=== PATIENT | male | born 1960 ===

== ENCOUNTER 2024-11-06 08:24 | Outpatient (AMB) | payer OTHER, SELFPAY ==
--- NOTE | 2024-11-05 20:29 | A.OFFPC_ITS ---
Intake Visit Reasons: Diabetes [facility] Medical History (Updated 11/05/24 @ 20:33 by Primo Blanchard MD) Obesity, Class I, BMI 30-34.9 Osteoarthritis of right knee Insulin dependent type 2 diabetes mellitus Hypertension GERD (gastroesophageal reflux disease) Surgical History (Updated 11/05/24 @ 17:18 by TINO Shannon) History of arthroplasty of right knee Review of Systems Const Details: 10-point ROS reviewed and negative except as noted in HPI. Physical exam (Primary Care) Const Other: * Gen: NAD, A&O x3 * HEENT: NC/AT, PERRLA, EOMI, OP clear, MMM * Neck: Supple, no LAD/JVD/bruit * COR: RRR, S1 S2, no m/r/g * Lungs: CTAB, BS equal bilat, no r/r/w * Abd: NT/ND, +BS, no HSM, no mass/rebound/guarding * Ext: No CCE, 2+ pulses * Neuro: CN II?XII grossly intact, motor/sensory intact, reflexes 2+, gait normal * Skin: WDI, no rash Coding Diagnoses Hypertension I10 Insulin dependent type 2 diabetes mellitus E11.9; Z79.4 Gastroesophageal reflux disease without esophagitis K21.9 Esophagitis presence: without esophagitis Assessment & Plan Assessment & Plan (1) Hypertension: Code(s): I10 - Essential (primary) hypertension Category: Medical (2) Insulin dependent type 2 diabetes mellitus: Code(s): E11.9 - Type 2 diabetes mellitus without complications; Z79.4 - alf (current) use of insulin Category: Medical (3) GERD (gastroesophageal reflux disease): Code(s): K21.9 - Gastro-esophageal reflux disease without esophagitis Category: Medical Qualifiers: Esophagitis presence: without esophagitis Qualified Code(s): K21.9 - Gastro-esophageal reflux disease without esophagitis
--- NOTE | 2024-11-05 20:29 | MHC.PC.OV ---
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 Physical exam (Primary Care) Const Other: Gen: NAD, A&O x3 HEENT: NC/AT, PERRLA, EOMI, OP clear, MMM Neck: Supple, no LAD/JVD/bruit COR: RRR, S1 S2, no m/r/g Lungs: CTAB, BS equal bilat, no r/r/w Abd: NT/ND, +BS, no HSM, no mass/rebound/guarding Ext: No CCE, 2+ pulses Neuro: CN II?XII grossly intact, motor/sensory intact, reflexes 2+, gait normal Skin: WDI, no rash Coding Diagnoses Hypertension I10 Insulin dependent type 2 diabetes mellitus E11.9; Z79.4 Gastroesophageal reflux disease without esophagitis K21.9 Esophagitis presence: without esophagitis Assessment & Plan Assessment & Plan (1) Hypertension: Code(s): I10 - Essential (primary) hypertension Category: Medical (2) Insulin dependent type 2 diabetes mellitus: Code(s): E11.9 - Type 2 diabetes mellitus without complications; Z79.4 - USP (current) use of insulin Category: Medical (3) GERD (gastroesophageal reflux disease): Code(s): K21.9 - Gastro-esophageal reflux disease without esophagitis Category: Medical Qualifiers: Esophagitis presence: without esophagitis Qualified Code(s): K21.9 - Gastro-esophageal reflux disease without esophagitis
--- NOTE | 2024-11-06 07:50 | A.OFFPC_ITS ---
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 He has a past medical history of diabetes type 2 hypertension GERD osteoarthritis of the right knee osteoarthritis of bilateral shoulders bilateral carpal tunnel lower back pain with sciatica He currently takes 54 units of insulin at night takes 4 units pre meals ,takes 5 mg of lisinopril pantoprazole for GERD. He also mentions he was receiving physical therapy for lower back pain but had to stop due to pain He mentions that he received an x-ray not too long ago for lower back pain which showed a pinched nerve He was receiving steroid injections for his carpal tunnel and steroid injections for bilateral shoulder arthritis He has not seen Ophthalmology or podiatry Blood pressure is elevated at this time which maybe this which may be secondary to his pain which she puts 7/10 when he moves He has no other complaints at this time [facility] Medical History (Updated 11/06/24 @ 09:19 by Primo Blanchard MD) Insulin dependent type 2 diabetes mellitus Hypertension GERD (gastroesophageal reflux disease) Obesity, Class I, BMI 30-34.9 Osteoarthritis of right knee Surgical History (Updated 11/05/24 @ 17:18 by TINO Shannon) History of arthroplasty of right knee Family History (Updated 11/06/24 @ 08:39 by Samira Ramires MA) Father Heart attack Mother Heart attack Social History Housing: Apartment Alcohol intake: current Alcohol intake frequency: does not drink Patient Tobacco Use Status: Never used Tobacco service: No Current occupational status: disabled Cognitive needs: Yes (cane and walker) Hearing needs: No Vision needs: Yes (reading glasses) Questionnaire PHQ-9 Over the last 2 weeks, how often have you been bothered by any of the following problems? 1. Little interest or pleasure in doing things: not at all 2. Feeling down, depressed, or hopeless: not at all 3. Trouble falling or staying asleep, or sleeping too much: not at all 4. Feeling tired or having little energy: not at all 5. Poor appetite or overeating: not at all 6. Feeling bad about yourself - or that you are a failure or have let yourself or your family down: not at all 7. Trouble concentrating on things, such as reading the newspaper or watching television: not at all 8. Moving or speaking so slowly that other people could have noticed. Or the opposite - being so fidgety or restless that you have been moving around a lot more than usual: not at all 9. Thoughts that you would be better off or of hurting yourself in some way: not at all Total score: 0 Depression Screening Interpretation: Negative Depression Screening Done: Yes Source: Developed by Drs. Anand Negron, Heidi Capps, Ugo Rankin and colleagues, with an educational rogelio from [employer]. Thrive Questionnaire Date Thrive assessed: 11/06/24 I am a: Patient What is your living situation today?: I have a steady place to live Within the past 12 months, did the food you bought not last and you didn't have the money to get more?: Never true Within the past 12 months, did you worry whether your food would run out before you got money to buy more?: Never true Do you have trouble paying for medicines?: No Do you have trouble getting transportation to medical appointments?: No Do you have trouble paying your heating and electricity bill?: No Do you have trouble taking care of your child, family member or friend?: No Do you have trouble with day-to-day activities such as bathing, preparing meals, shopping, managing finances, etc.?: No Are you currently unemployed and looking for a job?: No Are you interested in more education?: No Please select the resources that you would like help with: None Currently or been in a relationship where the following occur: No concerns reported THRIVE Score: 0 AUDIT C Alcohol Use Questionnaire (AUDIT-C) 1. How often do you have a drink containing alcohol?: Never 3. How often do you have six or more drinks on one occasion?: Never Total Score: 0 Score Reviewed/Action Taken: Yes MOHAMUD-7 AMB Questionnaire MOHAMUD-7 Date MOHAMUD - 7 assessed: 11/06/24 Feeling nervous, anxious, or on edge: 0 = Not at all Not being able to stop or control worryin = Not at all Worrying too much about different things: 0 = Not at all Trouble relaxin = Not at all Being so restless that it is hard to sit still: 0 = Not at all Becoming easily annoyed or irritable: 0 = Not at all Feeling afraid as if something awful might happen: 0 = Not at all Total MOHAMUD-7 score (0-4 normal; 5-9 mild; 10-14 moderate; 15-21 severe): 0 Source: Developed by Drs. Anand Negron, Heidi Capps, Ugo Rankin and colleagues, with an educational rogelio from [employer]. Review of Systems Const Details: 10-point ROS reviewed and negative except as noted in HPI. Physical exam (Primary Care) 32 BMI Assessment/Plan discussion: High Depression Screening Interpretation: Negative Currently or been in a relationship where the following occur: No concerns reported Const Other: * Gen: NAD, A&O x3 * HEENT: NC/AT, PERRLA, EOMI, OP clear, MMM * Neck: Supple, no LAD/JVD/bruit * COR: RRR, S1 S2, no m/r/g * Lungs: CTAB, BS equal bilat, no r/r/w * Abd: NT/ND, +BS, no HSM, no mass/rebound/guarding * Ext: No CCE, 2+ pulses * Neuro: CN II?XII grossly intact, motor/sensory intact, reflexes 2+, gait normal * Skin: WDI, no rash Coding Level of Care Code New Pt Level 3 (40645) Diagnoses Insulin dependent type 2 diabetes mellitus E11.9; Z79.4 Hypertension I10 Gastroesophageal reflux disease without esophagitis K21.9 Esophagitis presence: without esophagitis Routine lab draw Z01.89 Regular check-up Z00.00 Exercise counseling Z71.82 Other specified counseling Z71.89 Back pain associated with peripheral numbness M54.9; R20.0 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 Carpal tunnel syndrome G56.00 Arthritis of shoulder M19.019 Pain R52 Elevated blood pressure reading R03.0 Assessment & Plan Assessment & Plan (1) Insulin dependent type 2 diabetes mellitus: Code(s): E11.9 - Type 2 diabetes mellitus without complications; 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 Category: Medical (2) Hypertension: Code(s): I10 - Essential (primary) hypertension Category: Medical (3) GERD (gastroesophageal reflux disease): Code(s): K21.9 - Gastro-esophageal reflux disease without esophagitis Category: Medical Qualifiers: Esophagitis presence: without esophagitis Qualified Code(s): K21.9 - Gastro-esophageal reflux disease without esophagitis (4) Routine lab draw: Code(s): Z01.89 - Encounter for other specified special examinations (5) Regular check-up: Code(s): Z00.00 - Encounter for general adult medical examination without abnormal f indings (6) Exercise counseling: Code(s): Z71.82 - Exercise counseling (7) Other specified counseling: Code(s): Z71.89 - Other specified counseling (8) Back pain associated with peripheral numbness: Code(s): M54.9 - Dorsalgia, unspecified; R20.0 - Anesthesia of skin Category: Medical (9) 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: Code(s): M53.87 - Other specified dorsopathies, lumbosacral region Category: Medical (10) Carpal tunnel syndrome: Code(s): G56.00 - Carpal tunnel syndrome, unspecified upper limb Category: Medical (11) Arthritis of shoulder: Code(s): M19.019 - Primary osteoarthritis, unspecified shoulder Category: Medical (12) Pain: Code(s): R52 - Pain, unspecified Category: Medical (13) Elevated blood pressure reading: Code(s): R03.0 - Elevated blood-pressure reading, without diagnosis of hypertension Plan continue current medication for chronic condition currently does not need refills referrals for pain mgmt podiatry ophthalmology neurosurgery 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 A1c follow-up. Medication counseling (5 min): * Reviewed purpose and indication of prescribed medications. * Discussed dosing, timing, and administration instructions. * Reviewed common side effects, potential adverse reactions, and when to seek urgent care. * Addressed drug?drug and drug?food interactions as relevant. * Emphasized importance of adherence and not stopping medications without provider input. * Confirmed patient understanding using teach-back method. * Provided written instructions/AVS for reinforcement. Fall Prevention Counseling (5 min) Counseling provided on fall risk and prevention. Reviewed importance of: * Exercise: balance/strength activities (e.g., walking, Martin Chi, PT if needed). * Home safety: remove loose rugs/clutter, improve lighting, install grab bars/railings, nonslip footwear. * Health maintenance: annual eye/hearing checks, medication review, adequate vitamin D/calcium intake. * Encouraged gradual position changes to reduce dizziness. Patient verbalized understanding.
[2024-11-06 08:40] VITALS: BP 146/102; PULSE 89; RESP 16; TEMP 36.4; O2SAT 99; BMI 32.0
== END 2024-11-06 09:10 | disposition home or self-care (01) ==
LOC: HO.HMCFMS 08:25
PROVIDERS: PCP Student in an Organized Health Care Education/Training Program; Visit Provider Student in an Organized Health Care Education/Training Program
DX: Z00.00 Encounter for general adult medical examination without abnormal findings (principal); E11.9 Type 2 diabetes mellitus without complications; Z79.4 Long term (current) use of insulin; I10 Essential (primary) hypertension; K21.9 Gastro-esophageal reflux disease without esophagitis; Z71.82 Exercise counseling; Z71.89 Other specified counseling; M54.9 Dorsalgia, unspecified; R20.0 Anesthesia of skin; M53.87 Other specified dorsopathies, lumbosacral region; G56.00 Carpal tunnel syndrome, unspecified upper limb; M19.019 Primary osteoarthritis, unspecified shoulder; R52 Pain, unspecified; R03.0 Elevated blood-pressure reading, without diagnosis of hypertension

== ENCOUNTER 2024-11-20 08:55 | Outpatient (REF) | payer MEDICARE, SELFPAY ==
[2024-11-20 13:54] LABS: Total Hemoglobin (HGBA1C) 3958.5323 umol/L
[2024-11-20 14:08] LABS: Alanine Aminotransferase 37 U/L (0-40); Albumin Level 4.5 g/dL (3.5-5.0); Alkaline Phosphatase 100 U/L (39-117); Anion Gap 10 (12-20); Aspartate Amino Transferase 29 U/L (5-37); Blood Urea Nitrogen 18 mg/dL (9-16); Calcium 9.7 mg/dL (8.4-10.2); Carbon Dioxide 30 mmol/L (22-29); Chloride 106 mmol/L (96-108); Cholesterol 157 mg/dL (<200); Estimated Glomerular Filt Rate > 60; HDL Cholesterol 62 mg/dL (>40); Potassium 4.3 mmol/L (3.3-5.1); Sodium 142 mmol/L (135-145); Total Protein 7.3 g/dL (6.5-8.0); Triglycerides 71 mg/dL (<150)
[2024-11-20 14:28] LABS: Microalbum/Creatinine Ratio Ur 13.4 ug/mg cr (<30)
[2024-11-21 09:00] LABS: HIV Num 1 0.07 S/CO (0.00-0.99); ~HepC Num1 0.05 S/CO (0.00-0.79); ~Hepatitis C Antibody Nonreactive (Nonreactive)
== END 2024-11-20 08:56 | disposition home or self-care (01) ==
LOC: HO.HKASLDS 08:55
PROVIDERS: PCP Student in an Organized Health Care Education/Training Program; Visit Provider Student in an Organized Health Care Education/Training Program
DX: Z11.4 Encounter for screening for human immunodeficiency virus [HIV] (principal); M54.9 Dorsalgia, unspecified; R20.0 Anesthesia of skin; E66.811 Obesity, class 1; E11.9 Type 2 diabetes mellitus without complications; I10 Essential (primary) hypertension; M25.561 Pain in right knee; Z79.4 Long term (current) use of insulin; Z96.651 Presence of right artificial knee joint
CPT/HCPCS: 36415; 80053; 80061; 82043; 82570; 83036; 86803; 87389; 99212

== ENCOUNTER 2024-11-20 08:55 | Outpatient (AMB) | payer MEDICARE, SELFPAY ==
--- NOTE | 2024-11-20 09:19 | A.OFFPC_ITS ---
Vital Signs 11/20/24 09:20 Height 5 ft 6.54 in Weight 203 lb BMI 32.2 BP 150/90 H Blood Pressure Location Rt brachial Position Sitting Respiration 16 Pulse 89 Pulse Source Pulse Oximeter Temp 97.5 F Temp Source Oral Pulse Oximetry (%) 97 Oxygen Delivery Method Room Air Intake Visit Reasons: 2 week follow up Reflexologist Required: No Accompanied by: Self / Same As Patient Allergies No Known Allergies Allergy (Verified 11/20/24 09:19) Tobacco use date assessed: 11/06/24 Fall risk assessment: 1 Fall in past year Last assessed Fall Risk: 11/06/24 Dental Screening Dental Screen Date: 11/06/24 Did you have a dental visit in the last 12 months?: Yes Did you have a dental problem in the last 6 months where you did not have access to dental care?: No Was dental information given to patient?: Patient has dentist HPI HPI Comments History of Present Illness Details History of Present Illness The patient is a 64-year-old male presenting with chronic back pain and diabetes management. Chronic back pain: - The patient reports persistent back pa in since a previous surgery, which has not resolved despite various interventions. - He experiences difficulty straightenin g up upon waking and relies on medication that affects his blood sugar levels. - The patient has been referred for an M RI and to see a neurosurgeon and pain specialist for further evaluation and management. Diabetes mellitus: - The patient has diabetes mellitus, whi ch is affected by his current pain medication regimen. - He has been advised to manage his diab etes while addressing his chronic pain issues. Health Maintenance Review of Systems - Musculoskeletal: Reports chronic back pain and difficulty straightening up upon waking. - Endocrine: Reports issues with blood s ugar management due to pain medication. 10-point ROS reviewed and negative excep t as noted in HPI Past Medical History - Diabetes mellitus - Right knee total knee replacement Physical Exam General: Well-appearing, in no acute distress. Vital signs: Within normal limits. HEENT: Normocephalic, atraumatic. PERRLA, EOMI. Conjunctiva clear, sclera anicteric. Oropharynx clear, mucous membranes moist. TMs intact bilaterally. Neck: Supple, no lymphadenopathy, no thyromegaly, no JVD or carotid bruits. Cardiovascular: RRR, normal S1/S2, no murmurs, rubs, or gallops. Peripheral pulses 2+ and symmetric. No edema. Respiratory: Lungs clear to auscultation bilaterally, no wheezes, rales, or rhonchi. Normal effort. Abdomen: Soft, non-tender, non-distended. Normoactive bowel sounds. No hepatosplenomegaly, no masses. MSK: Full range of motion, no joint swelling or deformity. Normal gait. Skin: Warm, dry, intact. No rashes, lesions, or pallor. Neuro: Alert and oriented x3. Cranial nerves II-XII intact. Strength 5/5 throughout. Sensation intact. Reflexes 2+ symmetric. Normal coordination and gait. Psych: Appropriate mood and affect. Normal judgment and insight. Discussion Notes I discussed with the patient the need for an MRI to further evaluate his chronic back pain and the importance of consulting with a neurosurgeon and pain specialist. We also talked about the impact of his pain medication on his diabetes management and the need to address both conditions simultaneously. Plan 1. Dorsalgia, unspecified M54.9 - The patient will undergo an MRI to ass ess the cause of persistent back pain and will consult with a neurosurgeon and pain specialist for further management. - Pain management strategies, including possible steroid injections, will be considered. 2. Type 2 diabetes mellitus without comp lications E11.9 HCC 19 - The patient is advised to monitor bloo d sugar levels closely, especially in relation to his pain medication regimen. - Adjustments to his diabetes management plan may be necessary based on further evaluation. Patient Instructions - Schedule and complete the MRI as soon as possible. - Follow up with the neurosurgeon and pa in specialist for further evaluation. - Monitor blood sugar levels regularly a nd report any significant changes. [facility] Medical History Insulin dependent type 2 diabetes mellitus Hypertension GERD (gastroesophageal reflux disease) Obesity, Class I, BMI 30-34.9 Osteoarthritis of right knee Surgical History History of arthroplasty of right knee Family History Father Heart attack Mother Heart attack Social History Housing: Apartment Alcohol intake: current Alcohol intake frequency: does not drink Patient Tobacco Use Status: Never used Tobacco service: No Current occupational status: disabled Cognitive needs: Yes (cane and walker) Hearing needs: No Vision needs: Yes (reading glasses) Questionnaire PHQ-9 Over the last 2 weeks, how often have you been bothered by any of the following problems? 1. Little interest or pleasure in doing things: not at all 2. Feeling down, depressed, or hopeless: not at all 3. Trouble falling or staying asleep, or sleeping too much: nearly every day 4. Feeling tired or having little energy: nearly every day 5. Poor appetite or overeating: not at all 6. Feeling bad about yourself - or that you are a failure or have let yourself or your family down: not at all 7. Trouble concentrating on things, such as reading the newspaper or watching television: not at all 8. Moving or speaking so slowly that other people could have noticed. Or the opposite - being so fidgety or restless that you have been moving around a lot more than usual: not at all 9. Thoughts that you would be better off or of hurting yourself in some way: not at all Total score: 6 Source: Developed by Drs. Anand Negron, Heidi Capps, Ugo Rankin and colleagues, with an educational rogelio from [employer]. Thrive Questionnaire Date Thrive assessed: 11/06/24 I am a: Patient What is your living situation today?: I have a steady place to live Within the past 12 months, did the food you bought not last and you didn't have the money to get more?: Sometimes True Within the past 12 months, did you worry whether your food would run out before you got money to buy more?: Sometimes True Do you have trouble paying for medicines?: No Do you have trouble getting transportation to medical appointments?: No Do you have trouble paying your heating and electricity bill?: No Do you have trouble taking care of your child, family member or friend?: No Are you currently unemployed and looking for a job?: No Are you interested in more education?: No Please select the resources that you would like help with: None Currently or been in a relationship where the following occur: I choose not to answer THRIVE Score: 2 AUDIT C Alcohol Use Questionnaire (AUDIT-C) 1. How often do you have a drink containing alcohol?: Never Total Score: 0 MOHAMUD-7 AMB Questionnaire MOHAMUD-7 Date MOHAMUD - 7 assessed: 11/06/24 Feeling nervous, anxious, or on edge: 0 = Not at all Not being able to stop or control worryin = Not at all Worrying too much about different things: 0 = Not at all Trouble relaxin = Several days Being so restless that it is hard to sit still: 1 = Several days Becoming easily annoyed or irritable: 1 = Several days Feeling afraid as if something awful might happen: 0 = Not at all Total MOHAMUD-7 score (0-4 normal; 5-9 mild; 10-14 moderate; 15-21 severe): 3 Source: Developed by Drs. Anand Negron, Heidi Capps, Ugo Rankin and colleagues, with an educational rogelio from [employer]. Physical exam (Primary Care) Vital Signs: Last Vital Signs Temp 97.5 F 11/20/24 09:20 Pulse 89 11/20/24 09:20 Resp 16 11/20/24 09:20 BP 150/90 H 11/20/24 09:20 Pulse Ox 97 11/20/24 09:20 Oxygen Delivery Method Room Air 11/20/24 09:20 BMI result Body Mass Index 32.2 Tobacco/Smoking Status: Tobacco use Status Tobacco use date assessed 11/06/24 11/20/24 09:23 Patient Tobacco Use Status Never used Tobacco 11/20/24 09:23 PHQ-9: PHQ-9 Score PHQ-9: Total score 6 11/20/24 09:23 Thrive Assessment: Date of Thrive Assessment Date Thrive assessed 11/06/24 11/20/24 09:23 Currently or been in a relationship where the following occur: I choose not to answer Coding Level of Care Code Est Pt Level 3 (49441) Diagnoses Back pain associated with peripheral numbness M54.9; R20.0 Obesity, Class I, BMI 30-34.9 E66.811 Insulin dependent type 2 diabetes mellitus E11.9; Z79.4 Hypertension I10 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 Pain R52 Encounter for other specified aftercare Z51.89 Right knee pain M25.561 History of total knee replacement Z96.659 Assessment & Plan Assessment & Plan (1) Back pain associated with peripheral numbness: Code(s): M54.9 - Dorsalgia, unspecified; R20.0 - Anesthesia of skin Category: Medical (2) Obesity, Class I, BMI 30-34.9: Code(s): E66.811 - Obesity, class 1 Category: Medical (3) Insulin dependent type 2 diabetes mellitus: Code(s): E11.9 - Type 2 diabetes mellitus without complications; Z79.4 - penitentiary (current) use of insulin Category: Medical (4) Hypertension: Code(s): I10 - Essential (primary) hypertension Category: Medical (5) 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: Code(s): M53.87 - Other specified dorsopathies, lumbosacral region Category: Medical (6) Pain: Code(s): R52 - Pain, unspecified Category: Medical (7) Encounter for other specified aftercare: Code(s): Z51.89 - Encounter for other specified aftercare (8) Right knee pain: Code(s): M25.561 - Pain in right knee (9) History of total knee replacement: Code(s): Z96.659 - Presence of unspecified artificial knee joint Plan
[2024-11-20 09:20] VITALS: BP 150/90; PULSE 89; RESP 16; TEMP 36.4; O2SAT 97; BMI 32.2
--- OUTSIDE RECORDS SUMMARY | 2024-11-20 10:17 | XMS_ITS | Clinical Summary ---
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 of diabetes, age, comorbid conditions, and other considerations. Currently, no consensus exists regarding use of hemoglobin A1c for diagnosis of diabetes for children. Blood Blood / Unknown 09/15/2024 4 :45 PM EDT 09/15/2024 4:45 PM EDT Narrative [facility] - 09/16/2024 7:02 AM EDT FASTING:NO Compa Duenas CLOTHESPIN MACHINE OPERATOR LAB - BLOOD DRAW Final Re sult Performing Organization Address City/[facility]/ZIP Co de Phone Number [facility] [address] [place] [id number], [employer] [address] [phone] * OTHER ORDERS SCANNED DOCUMENT (09/08/2024 3:00 AM EDT) 09/08/2024 3:00 AM EDT Compa Duenas CLOTHESPIN MACHINE OPERATOR SCAN OTHER ORDERS Final R esult * (ABNORMAL) COMPREHENSIVE METABOLIC PANEL (04/05/2024 9:58 AM EST) GLUCOSE 123(H) 65 - 99 mg/dL [employer] [facility] Comment: Fasting reference interval For someone without known diabetes, a glucose value between 100 and 125 mg/dL is consistent with prediabetes and should be confirmed with a follow-up test. UREA NITROGEN (BUN) 20 7 - 25 mg/dL [employer] [facility] CREATININE (blood) 0.95 0.70 - 1.35 mg/dL [employer] [facility] EGFR 89 > OR = 60 mL/min/1. 73m2 [employer] [facility] BUN/CREATININE RATIO SEE NOTE: [employer] [facility] Comment: Not Reported: BUN and Creatinine are within reference range. SODIUM 140 135 - 146 mmol/L [employer] [facility] POTASSIUM 4.9 3.5 - 5.3 mmol/L [employer] [facility] CHLORIDE 104 98 - 110 mmol/L [employer] [facility] CARBON DIOXIDE 28 20 - 32 mmol/L [employer] [facility] CALCIUM 10.0 8.6 - 10.3 mg/dL [employer] [facility] PROTEIN, TOTAL 6.7 6.1 - 8.1 g/dL [employer] [facility] ALBUMIN 4.6 3.6 - 5.1 g/dL [employer] [facility] GLOBULIN 2.1 1.9 - 3.7 g/dL (calc) [employer] [facility] ALBUMIN/GLOBULI N RATIO 2.2 1.0 - 2.5 (calc) [employer] [facility] BILIRUBIN, TOTAL 0.6 0.2 - 1.2 mg/dL [employer] [facility] ALKALINE PHOSPHATASE 97 35 - 144 U/L [employer] [facility] AST 17 10 - 35 U/L [employer] [facility] ALT 29 9 - 46 U/L [employer] [facility] Blood Blood / Unknown 04/05/2024 9 :58 AM EST 04/05/2024 9:58 AM EST Narrative [employer] [facility] - 04/06/2024 5:17 AM EST FASTING:YES us Zaki Hatch PharmD LAB - BLOOD DRAW Final Re sult [employer] [address] [address], [employer] [address] [address] * MICROALBUMIN/CREATININE RATIO, URINE, RANDOM (02/08/2024 10:32 AM EST) CREATININE, RANDOM URINE 122 20 - 320 mg/dL [employer] [facility] MICROALBUMIN 1.5 mg/dL [employer] [facility] Comment: Reference Range Not established MICROALBUMIN/CREA TININE RATIO, RANDOM URINE 12 <30 mg/g creat [employer] [facility] Comment: The ADA defines abnormalities in albumin excretion as follows: Albuminuria Category Result (mg/g creatinine) Normal to Mildly increased <30 Moderately increased 30-299 Severely increased > OR = 300 The ADA recommends that at least two of three specimens collected within a 3-6 month period be abnormal before considering a patient to be within a diagnostic category. Urine Urine specimen / Unknown 02/08/2024 10:32 AM EST 02/08/2024 10:32 AM EST [employer] Zaki Hatch PharmD LAB URINE AMBULATORY Lyndsay l Result [employer] [address] [address], [employer] [address] [address] * REFERRAL FOR DIABETIC RETINAL EXAM (11/23/2023 3:00 AM EDT) 11/23/2023 3:00 AM EDT [employer] Zaki Hatch PharmD REFERRAL Edited Re sult - Final * LIPID PANEL (11/22/2023 9:42 AM EDT) CHOLESTEROL, TOTAL 166 <200 mg/dL [employer] [facility] HDL CHOLESTEROL 70 > OR = 40 mg/dL [employer] [facility] TRIGLYCERIDES 109 <150 mg/dL [employer] [facility] LDL-CHOLESTEROL 77 99 mg/dL (calc) [employer] [facility] Comment: Reference range: <100 Desirable range <100 mg/dL for primary prevention; <70 mg/dL for patients with CHD or diabetic patients with > or = 2 CHD risk factors. LDL-C is now calculated using the Vin-Clark calculation, which is a validated novel method providing better accuracy than the Friedewald equation in the estimation of LDL-C. Vin SS et al. ROSE. 2013;310(19): 6230-0311 (http://education.tsumobi/faq/RUC027) CHOL/HDLC RATIO 2.4 <5.0 (calc) [facility] NON-HDL CHOLESTEROL 96 <130 mg/dL (calc) [facility] Comment: For patients with diabetes plus 1 major ASCVD risk factor, treating to a non-HDL-C goal of <100 mg/dL (LDL-C of <70 mg/dL) is considered a therapeutic option. Blood Blood / Unknown 11/22/2023 9 :42 AM EDT 11/22/2023 9:43 AM EDT Narrative [facility] - 11/23/2023 6:42 AM EDT FASTING:YES [employer] Zaki Hatch PharmD LAB - BLOOD DRAW Final Re connie [facility] [address] [place] [id number], [employer] [address] [place] [phone] * REFERRAL TO PODIATRY (01/22/2023 3:00 AM EST) 01/22/2023 3:00 AM EST [employer] Zaki Hatch PharmD REFERRAL Edited Re eltont - Final * HEPATITIS A,B,C PANEL (08/21/2018 9:40 AM EDT) HEPATITIS B SURFACE ANTIBODY NEGATIVE NEGATIVE [facility] HEPATITIS B SURFACE ANTIGEN NEGATIVE NEGATIVE [facility] Comment: Over the counter supplements containing high doses of biotin may interfere with this assay. If interference is suspected, patients shoud be retested after refraining from biotin supplements for 72 hours. HEPATITIS C VIRUS DIAGNOSTIC NEGATIVE NEGATIVE [facility] HEPATITIS B CORE ANTIBODY NEGATIVE NEGATIVE [facility] HEPATITIS A ANTIBODY TOTAL NEGATIVE NEGATIVE [facility] Comment: Over the counter supplements containing high doses of biotin may interfere with this assay. If interference is suspected, patients shoud be retested after refraining from biotin supplements for 72 hours. Blood specimen (specimen) Blood / Unknown 08/21/2018 9:40 AM EDT 08/21/2018 9:52 AM EDT Narrative [facility] - 08/21/2018 1:25 PM EDT [employer], a member of [address] [address] Manager Money - Dalia Smith MD [place] ID [id number] ORD# [id number] Louis Forrester NP LAB - BLOOD DRAW Edited Result - Final [employer] [place] [address], * COLONOSCOPY (05/05/2015 9:58 AM EST) Gertrudes Mikey Roque PA - 05/05/2015 9:58 AM EST Repeat in 10 years Provider [place] PROCEDURES Final Result from Last 3 Months or Most Recently Relevant to Health Maintenance [place] D[place] [facility] DENTAL MEDICAID AETNA MEDICARE Advance Directives Healthcare Agents on File Name Relationship Healthcare Agent [facility] Communication Bianca Dominguez Relative Health Care Agent Care Teams Yardage Control Operator Relationship Specialty Start Date End Date Compa Duenas FNP [address] [place] [address] PCP - General Family Medicine, CRYPTOLOGIC SUPPORT SPECIALIST 01/22/20
--- OUTSIDE RECORDS SUMMARY | 2024-11-20 10:17 | XMS_ITS | Clinical Summary ---
Author Organization [facility] Address [address] [place] [phone] Phone Care Team Providers Care Woodworking Machinist Name Role Phone Compa Duenas NP Primary Care Provider [phone] Allergies No known active allergies Medications atorvastatin (LIPITOR) 40 mg tablet Take 1 tablet (40 mg total) by mouth 1 (one) time each day. Active empagliflozin (Jardiance) 10 mg tablet Take 1 tablet (10 mg total) by mouth 1 (one) time each day. Active lisinopril-hydro CHLOROthiazide (PRINZIDE,ZESTOR ETIC) 20-25 mg per tablet Take 1 tablet by mouth 1 (one) time each day. Active metFORMIN (GLUCOPHAGE) 1,000 mg tablet Take 1 tablet (1,000 mg total) by mouth 2 (two) times a day with meals. Active acetaminophen (TYLENOL) 500 mg tablet Take 1 tablet (500 mg total) by mouth every 6 (six) hours if needed for mild pain for up to 12 doses. 12 tablet 09/25/2024 Active naproxen (NAPROSYN) 500 mg tablet Take 1 tablet (500 mg total) by mouth 2 (two) times a day if needed for mild pain for up to 12 doses. 12 tablet 09/25/2024 Active cyclobenzaprine (FLEXERIL) 10 mg tablet Take 1 tablet (10 mg total) by mouth 2 (two) times a day if needed for muscle spasms for up to 20 doses. 20 tablet 09/25/2024 Active Active Problems Problem Noted Date Diagnosed Date Sleep apnea 04/07/2022 Overview (03/21/2024): Last Assessment & Plan: Patient is quite adamant about the fact that he wakes up at night short of breath the last about 30 seconds. There is no indication that this is orthopnea due to peripheral edema or congestive heart failure. He is moderately obese I does not know whether he snores or not but certainly has the body habitus of some of his sleep apnea. Patient will be scheduled for home sleep study Dyspnea 04/06/2022 Overview (03/21/2024): Last Assessment & Plan: Patient complains of exertional dyspnea with mild chest discomfort has multiple risk factors for heart disease including hypertension hyperlipidemia family history. Patient be sent for stress echo there are no murmurs noted on cardiac exam I doubt there is aortic stenosis or significant mitral insufficiency there is no evidence of right heart failure but a stress echocardiogram be beneficial given his symptoms of exertional dyspnea. The patient's had no recent lipid profile or hemoglobin A1c. the patient will be sent for both. Essential hypertension 04/06/2022 Overview (03/21/2024): Last Assessment & Plan: Blood pressures under good medical management at this time HLD (hyperlipidemia) 04/06/2022 Encounters Date Type Department Care Team Description 10/03/2024 9:15 AM EDT - 10/03/2024 11:57 AM EDT Emergency [facility] Emergency [address] [place] [address] Acute exacerbation of chronic low back pain (Primary Dx); Sciatica of left side Discharge Disposition: Home or Self Care 09/25/2024 11:06 AM EDT - 09/25/2024 11:[address] [facility] Emergency [address] [place] [address] Sagar Urbano MD Acute left-sided low back pain with left-sided sciatica (Primary Dx); Lumbar radiculopathy Discharge Disposition: Home or Self Care from Last 3 Months Medical History Medical History Date Comments Obesity DX:Obesity Type 2 diabetes mellitus wit hout complications (CMS/HCC V24, CMS/HCC V28) DX:Type 2 evelyn betes mellitus without complications (HCC) Bilateral shoulder pain DX:Bilat eral shoulder pain Vitamin D deficiency DX:Vitamin D deficiency Right-sided low back pain wi th right-sided sciatica DX:Right-sided low back pain with right-sided sciatica Stage 3a chronic kidney dise ase (CKD) ([facility] V24, [facility] V28) DX:Stage 3a chronic kidney disease (CKD) (HCC) Social History Tobacco Use Types Packs/Day Years Used Date Smoking Tobacco: Never Smokeless Tobacco: Never Alcohol Use Standard Drinks/Week Comments Not Asked 0 (1 standard drink = 0.6 oz pur e alcohol) Sex and Gender Information Value Date Recorded Sex Assigned at Not on file Legal Sex Male 1:47 AM EST Gender Identity Not on file Sexual Orientation Not on file Obstetrics History Last Filed Vital Signs Vital Sign Reading Time Taken Comments Blood Pressure 154/88 10/03/2024 8:45 AM EDT Pulse 99 10/03/2024 8:45 AM EDT Temperature 36.3 C (97.4 F) 10/03/2024 8:45 AM EDT Respiratory Rate 20 10/03/2024 8:45 AM EDT Oxygen Saturation 100% 10/03/2024 8:45 AM EDT Inhaled Oxygen Concentration - - Weight 91.6 kg (202 lb) 10/03/2024 8:45 AM EDT Height 167.6 cm (5' 6 ) 10/03/2024 8:45 AM EDT Body Mass Index 32.6 10/03/2024 8:45 AM EDT Plan of Treatment Health Maintenance Due Date Last Done Comments Diabetes: Annual Foot Exam 1968 Diabetes: Annual Retina Eye Exam 1968 RSV Immunization Adult Patients (1 - Risk 60-74 years 1-dose series) 2018 Colorectal Cancer Screening: Colonoscopy 02/05/2022 Hepatitis C Screening 02/05/2022 Medicare Annual Wellness Visit 02/05/2022 Social Influencers of Health Screening 02/05/2022 Falls Risk Assessment 2023 Depression Screening 03/05/2024 Pneumococcal Vaccine: 50+ Years (3 of 3 - PCV20 or PCV21) 03/18/2024 03/18/2019, 05/29/2018 COVID-19 Vaccine ( - season) 2024 03/17/2022, 02/02/2021, 07/16/2020, Additional history exists Influenza Vaccine (#1) 2024 , 01/23/2023, 12/13/2021, Additional history exists Diabetes: Annual Urine Albumin-Creatinine Ratio (uACR) 02/07/2025 02/08/2024, 01/23/2023, 03/31/2020, Additional history exists Diabetes: Blood Sugar Control Test (HGBA1C) 03/18/2025 09/15/2024, 04/05/2024 Diabetes: Annual GFR (Glomerular Filtration Rate) 04/05/2025 04/05/2024 Hypertension/CHF/CAD Annual BMP Blood Test 04/05/2025 04/05/2024 DTaP,Tdap,and Td Vaccines (2 - Td or Tdap) 05/29/2028 05/29/2018 Cholesterol Screening (Lipid Panel) 11/21/2028 11/22/2023, 11/22/2023, 01/23/2023, Additional history exists Hepatitis B Vaccines Completed 11/22/2018, 06/28/2018, 05/29/2018 Hepatitis A Vaccines Aged Out 03/18/2019, 11/23/19 19 No longer eligible based on patient's age to complete this topic Zoster Vaccines Completed 04/01/2021, 12/24/2020 HIB Vaccines Aged Out No longer eligi ble based on patient's age to complete this topic HPV Vaccines Aged Out No longer eligi ble based on patient's age to complete this topic IPV Vaccines Aged Out No longer eligi ble based on patient's age to complete this topic MMR Vaccines Aged Out No longer eligi ble based on patient's age to complete this topic Meningococcal ACWY Vaccine Aged Out N o longer eligible based on patient's age to complete this topic Meningococcal B Vaccine Aged Out No l onger eligible based on patient's age to complete this topic RSV Immunization Patients Under 20 months Aged Out No longer eligible based on patient's age to complete this topic Varicella Vaccines Aged Out No longer eligible based on patient's age to complete this topic Procedures Procedure Name Priority Date/Time Associated Diagnosis Comments XR LUMBAR SPINE 2-3 VIEWS STAT 10/03/2024 10:07 AM EDT Acute exacerbation of chronic low back pain from Last 3 Months Results * XR Lumbar Spine 2-3 Views (10/03/2024 10:07 AM EDT) Anatomical Region Laterality Modality Spine, L-spine Radiographic Vonda ging 10/03/2024 10:1 4 AM EDT Impressions 10/03/2024 10:17 AM EDT No definite acute fracture or subluxation. Severe degenerative disc and degenerative joint disease which has worsened when compared to 2017. -------- FINAL REPORT -------- Dictated By: Bandar De Los Santos Dictated Date: 10/03/2024 10:14 ET Assigned Physician: Bandar De Los Santos Reviewed and Electronically Signed By: Bandar De Los Santos Signed Date: 10/03/2024 10:17 ET Workstation ID: [id number] Transcribed By: Self Edit Transcribed Date: 10/03/2024 10:14 ET Narrative 10/03/2024 10:17 AM EDT EXAMINATION: LUMBAR SPINE CLINICAL INFORMATION: Low back pain, greater than 6 weeks COMPARISON: Portions of previous 08/09/16 TECHNIQUE: 3 views lumbar spine FINDINGS: There are 5 lumbar-type vertebrae. There is convex right spinal curvature. There is trace retrolisthesis of L3 relative to L4. There is no definite acute fracture. No suspicious focal lesion. There is severe disc narrowing. There is endplate sclerosis. There are extensive marginal osteophytes. The findings are greatest between L3 and S1. There is facet disease. I suspect foraminal narrowing. There is likely a relatively narrow canal diameter on a developmental basis. The pedicles appear intact. There is arterial calcification. In comparison with 08/09/16 the findings have progressed. Procedure Note Bandar De Los Santos MD - 10/03/2024 EXAMINATION: LUMBAR SPINE CLINICAL INFORMATION: Low back pain, greater than 6 weeks COMPARISON: Portions of previous 08/09/16 TECHNIQUE: 3 views lumbar spine FINDINGS: There are 5 lumbar-type vertebrae. There is convex right spinal curvature.There is trace retrolisthesis of L3 relative to L4. There is no definite acute fracture. No suspicious focal lesion. There is severe disc narrowing. There is endplate sclerosis. There areextensive marginal osteophytes. The findings are greatest between L3 andS1. There is facet disease. I suspect foraminal narrowing. There is likelya relatively narrow canal diameter on a developmental basis. The pedicles appear intact. There is arterial calcification. In comparison with 08/09/16 the findings have progressed. IMPRESSION: No definite acute fracture or subluxation. Severe degenerative disc anddegenerative joint disease which has worsened when compared to 2017. -------- FINAL REPORT -------- Dictated By: Bandar De Los Santos Dictated Date: 10/03/2024 10:14 ET Assigned Physician: Bandar De Los Santos Reviewed and Electronically Signed By: Bandar De Los Santos Signed Date: 10/03/2024 10:17 ET Workstation ID: [id number] Transcribed By: Self Edit Transcribed Date: 10/03/2024 10:14 ET Thomas DUFFY IMG XR PROCEDURES Final Resu lt from Last 3 Months Insurance [employer] MEDICARE ADVANTAGE MEDICAID - [place] Care Teams Woodworking Machinist Relationship Specialty Start Date End Date Compa Duenas NP [facility] [place] [address] PCP - General 03/21/22
== END 2024-11-20 09:48 | disposition home or self-care (01) ==
LOC: HO.HMCFMS 08:56
PROVIDERS: PCP Student in an Organized Health Care Education/Training Program; Visit Provider Student in an Organized Health Care Education/Training Program
DX: M54.9 Dorsalgia, unspecified (principal); R20.0 Anesthesia of skin; E11.9 Type 2 diabetes mellitus without complications; Z79.4 Long term (current) use of insulin; E66.811 Obesity, class 1; Z68.32 Body mass index [BMI] 32.0-32.9, adult; I10 Essential (primary) hypertension; M53.87 Other specified dorsopathies, lumbosacral region; Z51.89 Encounter for other specified aftercare; M25.561 Pain in right knee; Z96.659 Presence of unspecified artificial knee joint

== ENCOUNTER 2024-11-26 08:44 | Outpatient (AMB) | payer MEDICARE, SELFPAY ==
--- NOTE | 2024-11-26 09:11 | MHC.OFFVIS ---
Intake Visit Reasons: Type II diabetes Intake Note: Nish is a 64 year old male who presents today as a new patient for a Diabetic foot exam evaluation. Patient states ongoing pain for a few months. Deneis numbness and tingling. Allergies No Known Allergies Allergy (Verified 11/26/24 09:11) Medication List - Last Reconciled 11/26/24 by Gene Aponte DPM alcohol swabs (Alcohol Prep Pads) pad topical TID atorvastatin 40 mg PO DAILY baclofen 10 mg PO TID blood sugar diagnostic (OneTouch Ultra Test strips) As directed blood-glucose meter ([employer] CommunicationsTouch Ultra2 Meter) As directed capsaicin 0.1% (Arthritis Pain Relief (capsaicin)) 1 appl topical TID [Diabetic shoes Please dispense diabetic shoes with plastazote inserts.] insulin glargine (Lantus Solostar U-100 Insulin) 54 units subcut BEDTIME insulin lispro (Admelog SoloStar U-100 Insulin lispro) subcut lancets ([employer] CommunicationsTouch Delica Plus Lancet) As directed lisinopril 5 mg PO QAM meloxicam 15 mg PO DAILY pantoprazole 40 mg PO DAILY pen needle, diabetic (Ultra-Fine Pen Needle) As directed semaglutide (Ozempic) 2 mg subcut QWEEK HPI HPI Type II diabetes: Details: 64-year-old male with past medical history of diabetes mellitus type 2 on insulin, GERD, lumbar radiculopathy with sciatica to the left lower extremity, and obesity who presents for diabetic foot evaluation and bilateral forefoot pain left foot worse than right. He states the pain has been present for over 1 year. He describes it as a burning and tingling sensation to the ball was foot over both feet, and wraps around the top of his foot to the right foot. The symptoms are worse during the nighttime. He finds relief when he takes muscle relaxants and when he rubs topical medication onto his feet. He also notices symptoms worsen when he is wearing tight shoe wear, and improves with open toe shoe wear. He has seen another construction controller who recommended diabetic shoes, which the patient was unable to get a prescription for. He is requesting a new prescription for diabetic shoes. [facility] Medical History Insulin dependent type 2 diabetes mellitus Hypertension GERD (gastroesophageal reflux disease) Obesity, Class I, BMI 30-34.9 Osteoarthritis of right knee Surgical History History of arthroplasty of right knee Family History Father Heart attack Mother Heart attack Social History Housing: Apartment Alcohol intake: current Alcohol intake frequency: does not drink Patient Tobacco Use Status: Never used Tobacco service: No Current occupational status: disabled Cognitive needs: Yes (cane and walker) Hearing needs: No Vision needs: Yes (reading glasses) Physical Exam Extrem Other: *Bilateral Lower Extremity Focused Diabetic Foot Exam Vascular: DP/PT 1/4 bilaterally, CFT<3s to digits, TG warm to cool, no pedal edema, pedal hair present Derm: Skin: No open lesions, ulcerations. Patient has a left foot plantar sub 1st metatarsal head hyperkeratotic lesion. Interdigital spaces: Clear, no maceration or fungal infection. Nails: No onychomycosis, paronychia, or ingrown nails. Neuro: Esmond-batsheva monofilament (10g) test 10/10 intact to right foot, 10/10 intact to left foot. Msk: Deformities: No evidence of hammertoes, bunions, Charcot changes, or other structural abnormalities patient has a cavus foot type.. Muscle strength: 5/5 in all muscle groups. Gait: Normal, no antalgic or steppage gait observed. Footwear Assessment: Shoes inspected; appropriate fit, no excessive wear, or foreign objects noted. Results Reviewed Results Reviewed: Laboratory Tests 11/20/24 10:32 Hemoglobin A1c % 7.6 H Assessment & Plan Assessment & Plan (1) Insulin dependent type 2 diabetes mellitus: Code(s): E11.9 - Type 2 diabetes mellitus without complications; Z79.4 - FDC (current) use of insulin Category: Medical Plan: Risk Stratification: No current ulceration, infection, or pre-ulcerative lesion. No loss of protective sensation or peripheral arterial disease. No plans for further testing/referrals for non-invasive vascular studies. Patient is at low risk for diabetic foot complications at this time. Recommendations: Continue routine foot care and daily self-inspection. Recommend moisturizing daily. Recommend supportive proper fitting shoe-wear. The patient may require diabetic shoes in the future. Reinforced diabetic foot education and risks from peripheral neuropathy. (2) Peripheral neuropathy: Code(s): G62.9 - Polyneuropathy, unspecified Category: Medical Qualifiers: Peripheral neuropathy type: polyneuropathy, other Qualified Code(s): G62.89 - Other specified polyneuropathies Plan: Discussed differential diagnosis which includes peripheral neuropathy from diabetes, radiculopathy, and forefoot metatarsalgia. Rx Capsaicin ointment. Patient states he has seen pain management on December 08 and is planning for a injection. (3) Metatarsalgia of both feet: Code(s): M77.41 - Metatarsalgia, right foot; M77.42 - Metatarsalgia, left foot Category: Medical Plan: Rx Diabetic shoes prescription, which will be sent to the patient. Rx x-rays foot bilaterally. Follow up in 1 month Orders: Orders XR Foot Rogers 3V Today G62.9 - Polyneuropathy, unspecified, M77.41 - Metatarsalgia, right foot, M77.42 - Metatarsalgia, left foot Medications: New capsaicin 0.1% (Arthritis Pain Relief (capsaicin)) do not wash area for at least 30 min after application 1 appl topical TID 42.5 grams 3RF Peripheral neuropathy G62.9 - Polyneuropathy, unspecified [Diabetic shoes] Please dispense diabetic shoes with plastazote inserts. 1 ea 0RF Diabetes mellitus with peripheral neuropathy E11.9 - Type 2 diabetes mellitus without complications, Z79.4 - FDC (current) use of insulin Coding Level of Care Code New Pt Level 4 (60348) Diagnoses Insulin dependent type 2 diabetes mellitus E11.9; Z79.4 Other polyneuropathy G62.89 Peripheral neuropathy type: polyneuropathy, other Metatarsalgia of both feet M77.41; M77.42 Time Spent (min) 30
--- OUTSIDE RECORDS SUMMARY | 2024-11-26 09:56 | XMS_ITS | Clinical Summary ---
Author Organization [facility] Address [address] [place] [address] Care Team Providers Care Computer Specialist Name Role Phone Compa Duenas LEARNING AND DEVELOPMENT DIRECTOR Primary Care Provider [phone] Source Comments PLEASE NOTE, if this patient [...] by mouth once daily 90 Capsule 3 3 Active gabapentin (NEURONTIN) 300 mg capsuleIndications:T ype 2 diabetes mellitus without complication, with long-term current use of insulin ([facility]),Neuropathy Take 1 Capsule by mouth 3 (three) times daily 270 Capsule 1 4 Active polyethylene glycol, PEG, 3350 (GLYCOLAX) 17 gram/dose powderIndications:He morrhoids, unspecified hemorrhoid type Take 17 g by mouth once daily 510 g 3 5 Active blood-glucose meter monitoring kitIndications:Type 2 diabetes mellitus with stage 3a chronic kidney disease, with long-term current use of insulin ([facility]),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 30 mL 3 5 Active pantoprazole (PROTONIX) 40 mg EC tablet Take 40 mg by mouth once daily. 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 15 mL 5 5 Active meloxicam (MOBIC) 15 mg tablet Take 1 Tablet by mouth once daily. 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 90 Tablet 1 5 Active Active Problems Problem Noted Date Diagnosed Date Status post right knee replacement 08/19/2024 Overview (09/15/2024): Performed total right knee arthroplasty on 07/18/24 Arthrofibrosis right knee manipulation at [facility] on 09/12/24. Type 2 diabetes mellitus wit h diabetic polyneuropathy, with long-term current use of insulin ([facility]) 05/09/2024 Overview (09/23/2024): DM dx: ~[id number] per patient reports Glucometer: ProHatch Ultra 2 (pt denies interest in CGM) [...] (05/29/18) Diabetes foot exam: Referral pending to [facility] as of 09/15/24 05/21/24 at [facility] Symptoms of arthritic changes in pedal [...] of feet. Diabetes retinal exam: 11/23/23 at [facility] Mild nonproliferative diabetic retinopathy [...] edema, with long-term current use of insulin ([facility]) 01/01/2024 Overview (09/23/2024): DM dx: ~[id number] per patient reports Glucometer: Carouselluch Ultra 2 (pt denies interest in CGM) [...] (05/29/18) Diabetes foot exam: Referral pending to [facility] as of 09/15/24 05/21/24 at [facility] Symptoms of arthritic changes in pedal [...] of feet. Diabetes retinal exam: 11/23/23 at [facility] Mild nonproliferative diabetic retinopathy [...] Overview (06/29/2022): [facility] Family history of [place] (myocardial infarction) 01/2022 Overview (06/29/2022): June 2022- [...] disease, with long-term current use of insulin ([facility]) Overview (09/23/2024): DM dx: ~[id number] per patient reports Glucometer: ProHatch Ultra 2 (pt denies interest in CGM) [...] (05/29/18) Diabetes foot exam: Referral pending to [facility] as of 09/15/24 05/21/24 at [facility] Symptoms of arthritic changes in pedal [...] of feet. Diabetes retinal exam: 11/23/23 at [facility] Mild nonproliferative diabetic retinopathy OS, no macular edema. Combined senile cataract OU. Peripheral pterygium, progressive OU Dry eye syndrome OU. Recommended artificial tears to use as directed. Recommended warm compresses twice daily Chronic blepharitis all 4 lids. Rx erythromycin acitlin QHS OU x 1 week, then d/c Presbyopia. Recommend +2.25 readers. Doesn't want bifocals. Vitamin D deficiency Resolved Problems Problem Noted Date Diagnosed Date Resolved Date Stage 3a chronic kidney dise ase ([facility]) 12/24/2020 02/21/2024 Allergic rhinitis due to allergen 08/20/2013 12/13/2021 Obesity (BMI 35.0-39.9 without comorbidity) 10/25/2012 03/22/2023 Encounters Date Type Department Care Team Description 10/20/2024 4:00 PM EDT Office Visit [address] [phone] Zaki Hatch, PharmD 10/17/2024 2:00 PM EDT Office Visit [address] [phone] Omega Quick MD 09/15/2024 4:00 PM EDT Office Visit [address] [phone] Zaki Hatch, PharmD from Last 3 Months Immunizations Immunization Administration Dates Next Due Flu, Cell Culture based, Pre servative Free, 6m+, Flucelvax 04/22/2019,01/03/2016 Flu, Preservative Free 01/23/2023,2021,11/11/2020,10/29 HEP A-HEP B ([facility]) 11/22/2018 Hep A, adult 03/18/2019 Hep B, Adult/Adol (PMCKYEE-P-TDCWE/RECOMBIVAX-ADULT) 06/28/2018,05/29/2018 Influenza (FLUZONE), high-do se, trivalent, PF 11/09/2023 PNEUMOCOCCAL CONJUGATE PCV 13 05/29/2018 PNEUMOCOCCAL POLYSACCHARIDE PPV23 (Pneumovax 23) 03/18/2019 Pfizer-BioNTech COVID-19 Vac cine Bivalent, (CABELLO PFIZER-BIONTECH COVID-19 [...] Description 12/22/2024 9:00 AM EDT Office Visit [facility] [address] [place] [phone] Zaki Hatch, PharmD [address] [place] [address] Health Maintenance Due Date Last Done Comments [...] - PCV20 or PCV21) 03/18/2024 03/18/2019, 05/29/2018 [id number]-23 ( season) 2024 03/17/2022, 02/02/2021, 07/16/2020, Additional history exists Lipid Screening 11/21/2024 11/22/2023, 01/04, 10/23/2022, Additional history exists Retinopathy Screening 11/22/2024 11/23/2023 , 05/07/2018, 12/21/2014 Falls Prevention 01/01/2025 01/02/2024 Urine Albumin Creatinine Rat io Screening 02/07/2025 02/08/2024, 01/23/2023, 03/31/2020, Additional history exists Hemoglobin A1c 03/18/2025 09/15/2024, 02/0 03/2024, 01/03/2024, Additional history exists Serum Creatinine [...] Annual Screen Completed 08/19/2024 Imm-Influenza Completed 11/12/2024, 090 08/2023, 01/23/2023, Additional history exists Goals Goal Patient Goal Type Associated Problems Recent Progress Patient-Stated? Author Blood Pressure < 130/80 Blood Pressure Essential hypertension 130/80(2024 4:22 PM EDT) No Hemanth Capps, PharmD HEMOGLOBIN A1C < 7.0 Result Component Type 2 diabetes mellitus with stage 3a chronic kidney disease, with long-term current use of insulin ([facility]) 7.7( 4:45 PM EDT) No Hemanth Capps, PharmD Procedures Procedure Name Priority Date/Time Associated Diagnosis Comments REFERRAL SCANNED DOCUMENT 11/24/2024 3:00 AM EDT REFERRAL SCANNED DOCUMENT 10/22/2024 3:00 AM EDT GLUCOSE, BLOOD BY GLUCOSE MONITORING DEVICE (CLIA WAIVED)POCT Routine 10/20/2024 4:22 PM EDT Type 2 diabetes mellitus with stage 3a chronic kidney disease, with long-term current use of insulin ([facility]) Type 2 diabetes mellitus with diabetic polyneuropathy, with long-term current use of insulin ([facility]) 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, with long-term current use of insulin ([facility]) HEALTH HISTORY SCANNED DOCUMENT 09/17/2024 3:00 AM EDT HEMOGLOBIN GLYCOSYLATED A1C Routine 09/15/2024 4:45 PM EDT Type 2 diabetes mellitus with diabetic polyneuropathy, with long-term current use of insulin ([facility]) GLUCOSE, BLOOD BY GLUCOSE MONITORING [...] disease, with long-term current use of insulin ([facility]) 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, with long-term current use of insulin ([facility]) Essential hypertension MICROALBUMIN/CREATIN INE RATIO, URINE, RANDOM Routine 02/08/2024 10:32 AM EST Type 2 diabetes mellitus with stage 3a chronic kidney disease, with long-term current use of insulin ([facility]) 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, with long-term current use of insulin ([facility]) REFERRAL TO DIABETIC RETINAL EXAM Routine 11/23/2023 3:00 AM EDT Type 2 diabetes mellitus with stage 3a chronic kidney disease, with long-term current use of insulin ([facility]) LIPID PANEL Routine 11/22/2023 9:42 AM EDT Type 2 diabetes mellitus with stage 3a chronic kidney disease, with long-term current use of insulin ([facility]) Hyperlipidemia LDL goal <100 REFERRAL TO PODIATRY Routine 01/22/2023 3:00 AM EST Type 2 diabetes mellitus with stage 3a chronic kidney disease, with long-term current use of insulin ([facility]) BITEWINGS - FOUR RADIOGRAPHIC IMAGES Routine 07/24/2022 [...] Health Maintenance Results * REFERRAL SCANNED DOCUMENT (11/24/2024 3:00 AM EDT) Only the most recent of3 resultswithin the time period is included. 11/24/2024 3:00 AM EDT Compa Duenas LEARNING AND DEVELOPMENT DIRECTOR SCAN REFERRAL Final Res ult * (ABNORMAL) GLUCOSE, BLOOD BY GLUCOSE MONITORING DEVICE (CLIA WAIVED)POCT Routine (10/20/2024 4:22 PM EDT) Only the most recent of2 resultswithin the time period is included. GLUCOSE 161(A) 70 - 100 mg/dL [facility] POCT Capillary Blood Blood / Unknown 4:22 PM EDT Zaki AustinD LAB - BLOOD DRAW Final Re sult [facility] POCT * HEALTH HISTORY SCANNED DOCUMENT (09/17/2024 3:00 AM EDT) Only the most recent of2 resultswithin the time period is included. 09/17/2024 3:00 AM EDT [facility] Provider Default SCAN OTHER ORDERS Final Re sult * (ABNORMAL) HEMOGLOBIN GLYCOSYLATED A1C Routine (09/15/2024 4:45 PM EDT) HEMOGLOBIN A1C 7.7(H) <5.7 % [facility] Comment: For someone without known diabetes, a [...] PM EDT 09/15/2024 4:45 PM EDT Narrative [facility] - 09/16/2024 7:02 AM EDT FASTING:NO StyleQ LEARNING AND DEVELOPMENT DIRECTOR LAB - BLOOD DRAW Final Re sult [facility] [address] [id number], [facility] [address] [place] [phone] * OTHER ORDERS SCANNED DOCUMENT (09/08/2024 3:00 AM EDT) 09/08/2024 3:00 AM EDT [facility] LEARNING AND DEVELOPMENT DIRECTOR SCAN OTHER ORDERS Final R esult * (ABNORMAL) COMPREHENSIVE METABOLIC PANEL (04/05/2024 9:58 AM EST) GLUCOSE 123(H) 65 - 99 mg/dL [facility] Comment: Fasting reference interval For someone without known diabetes, a glucose value between 100 and 125 mg/dL is consistent with prediabetes and should be confirmed with a follow-up test. UREA NITROGEN (BUN) 20 7 - 25 mg/dL [facility] CREATININE (blood) 0.95 0.70 - 1.35 mg/dL [facility] EGFR 89 > OR = 60 mL/min/1. 73m2 [facility] BUN/CREATININE RATIO SEE NOTE: [facility] Comment: Not Reported: BUN and Creatinine are within reference range. SODIUM 140 135 - 146 mmol/L [facility] POTASSIUM 4.9 3.5 - 5.3 mmol/L [facility] CHLORIDE 104 98 - 110 mmol/L [facility] CARBON DIOXIDE 28 20 - 32 mmol/L [facility] CALCIUM 10.0 8.6 - 10.3 mg/dL [facility] PROTEIN, TOTAL 6.7 6.1 - 8.1 g/dL [facility] ALBUMIN 4.6 3.6 - 5.1 g/dL [facility] GLOBULIN 2.1 1.9 - 3.7 g/dL (calc) [facility] ALBUMIN/GLOBULI N RATIO 2.2 1.0 - 2.5 (calc) [facility] BILIRUBIN, TOTAL 0.6 0.2 - 1.2 mg/dL [facility] ALKALINE PHOSPHATASE 97 35 - 144 U/L [facility] AST 17 10 - 35 U/L [facility] ALT 29 9 - 46 U/L [facility] Blood Blood / Unknown 04/05/2024 9 :58 AM EST 04/05/2024 9:58 AM EST Narrative [facility] - 04/06/2024 5:17 AM EST FASTING:YES us Zaki AustinD LAB - BLOOD DRAW Final Re sult [facility] [address] [address], [facility] [address] [address] * MICROALBUMIN/CREATININE RATIO, URINE, RANDOM (02/08/2024 10:32 AM EST) CREATININE, RANDOM URINE 122 20 - 320 mg/dL [facility] MICROALBUMIN 1.5 mg/dL [facility] [employer] [employer] [facility] Comment: Reference Range Not established MICROALBUMIN/CREA TININE RATIO, RANDOM URINE 12 <30 mg/g creat [facility] Comment: The ADA defines abnormalities in [...] 10:32 AM EST 02/08/2024 10:32 AM EST Populrradha Luciais PharmD LAB URINE AMBULATORY Lyndsay l Result [facility] [address] [address], [facility] [address] [phone] * REFERRAL FOR DIABETIC RETINAL EXAM (11/23/2023 3:00 AM EDT) 11/23/2023 3:00 AM EDT Populre [place] PharmD REFERRAL Edited Re sult - Final * LIPID PANEL (11/22/2023 9:42 AM EDT) CHOLESTEROL, TOTAL 166 <200 mg/dL [facility] HDL CHOLESTEROL 70 > OR = 40 mg/dL [facility] TRIGLYCERIDES 109 <150 mg/dL [facility] LDL-CHOLESTEROL 77 99 mg/dL (calc) [facility] Comment: Reference range: <100 Desirable range <100 mg/dL for primary prevention; <70 mg/dL for patients with CHD or diabetic patients with > or = 2 CHD risk factors. LDL-C is now calculated using the Pascale calculation, which is a validated novel method providing better accuracy than the Friedewald equation in the estimation of LDL-C. Vin NOVOA et al. ROSE. 2013;310(19): 4922-7242 (http://education.[employer].OurStage/faq/DWH578) CHOL/HDLC RATIO 2.4 <5.0 (calc) [facility] NON-HDL CHOLESTEROL 96 <130 mg/dL (calc) [facility] Comment: For patients with diabetes plus 1 major ASCVD risk factor, treating to a non-HDL-C goal of <100 mg/dL (LDL-C of <70 mg/dL) is considered a therapeutic option. Blood Blood / Unknown 11/22/2023 9 :42 AM EDT 11/22/2023 9:43 AM EDT Narrative [facility] - 11/23/2023 6:42 AM EDT FASTING:YES [employer] Zaki Hatch PharmD LAB - BLOOD DRAW Final Re sult [facility] [address] [place] [phone], [facility] [address] [place] [phone] * REFERRAL TO PODIATRY (01/22/2023 3:00 AM EST) 01/22/2023 3:00 AM EST [facility] Zaki Luciais PharmD REFERRAL Edited Re sult - Final * HEPATITIS A,B,C PANEL (08/21/2018 9:40 AM EDT) HEPATITIS B SURFACE ANTIBODY NEGATIVE NEGATIVE [facility] HEPATITIS B SURFACE ANTIGEN NEGATIVE NEGATIVE [facility] Comment: Over the counter supplements containing high doses of biotin may interfere with this assay. If interference is suspected, patients shoud be retested after refraining from biotin supplements for 72 hours. HEPATITIS C VIRUS DIAGNOSTIC NEGATIVE NEGATIVE [facility] HEPATITIS B CORE ANTIBODY NEGATIVE NEGATIVE [facility] HEPATITIS A ANTIBODY TOTAL NEGATIVE NEGATIVE [facility] Comment: Over the counter supplements containing high doses of biotin may interfere with this assay. If interference is suspected, patients shoud be retested after refraining from biotin supplements for 72 hours. Blood specimen (specimen) Blood / Unknown 08/21/2018 9:40 AM EDT 08/21/2018 9:52 AM EDT Narrative [facility] - 08/21/2018 1:25 PM EDT [facility], a member of [address] [address] [employer] - Dalia Smith MD [place] [id number] ORD# [id number] Louis Forrester NP LAB - BLOOD DRAW Edited Result - Final [facility] [address], * COLONOSCOPY (05/05/2015 9:58 AM EST) Mikey Evans PA - 05/05/2015 9:58 AM EST Repeat in 10 years Provider [place] PROCEDURES Final Result from Last 3 Months or Most Recently Relevant to Health Maintenance [place] [facility] [place]ET[employer] MEDICARE Advance Directives Healthcare Agents on File Name Relationship Healthcare Agent [facility] Communication Bianca Dominguez Relative Health Care Agent Care Teams Computer Specialist Relationship Specialty Start Date End Date Compa Duenas FNP [address] [place] [address] PCP - General Family Medicine, DIRECTOR BEHAVIORAL HEALTH 01/22/20
--- OUTSIDE RECORDS SUMMARY | 2024-11-26 09:56 | XMS_ITS | Clinical Summary ---
Author Organization [facility] Address [address] [place] [phone] Phone Care Team Providers Care Director Of Materials Management Name Role Phone Compa Duenas NP Primary Care Provider +1- [phone] Allergies No known active allergies Medications atorvastatin [...] EDT - 10/03/2024 11:57 AM EDT Emergency [facility] Emergency [address] [place] [address] Acute exacerbation of chronic low back pain (Primary Dx); Sciatica of left side Discharge Disposition: Home or Self Care 09/25/2024 11:06 AM EDT - 09/25/2024 11:53 AM EDT [facility] Emergency [address] [place] [address] Sagar Urbano MD Acute left-sided low back [...] Stage 3a chronic kidney dise ase (CKD) ([facility] V24, [facility] V28) DX:Stage 3a chronic kidney disease (CKD) [...] Signed Date: 10/03/2024 10:17 ET Workstation ID: [id number] Transcribed By: Self Edit Transcribed Date: 10/03/2024 [...] Signed Date: 10/03/2024 10:17 ET Workstation ID: [id number] Transcribed By: Self Edit Transcribed Date: 10/03/2024 10:14 ET Thomas DUFFY IMG XR PROCEDURES Final Resu lt from Last 3 Months Insurance [employer] MEDICARE ADVANTAGE MEDICAID - [place] Care Teams Director Of Materials Management Relationship Specialty Start Date End Date Compa Duenas NP [address] [place] [address] PCP - General 03/21/22
== END 2024-11-26 09:14 | disposition home or self-care (01) ==
LOC: HO.HPODS 08:45
PROVIDERS: PCP Student in an Organized Health Care Education/Training Program; Visit Provider Student in an Organized Health Care Education/Training Program
DX: E11.9 Type 2 diabetes mellitus without complications (principal); Z79.4 Long term (current) use of insulin; G62.89 Other specified polyneuropathies; M77.41 Metatarsalgia, right foot; M77.42 Metatarsalgia, left foot
CPT/HCPCS: 99204

== ENCOUNTER → 2024-11-26 08:44 | Outpatient (BNVA) | payer MEDICARE, SELFPAY | PROVIDERS: PCP Student in an Organized Health Care Education/Training Program; Visit Provider Student in an Organized Health Care Education/Training Program | DX: E11.42 Type 2 diabetes mellitus with diabetic polyneuropathy (principal); M77.41 Metatarsalgia, right foot; M77.42 Metatarsalgia, left foot; Z79.4 Long term (current) use of insulin | CPT/HCPCS: 99202 ==

== ENCOUNTER 2024-12-04 09:57 | Outpatient (AMB) | payer MEDICARE, SELFPAY ==
--- NOTE | 2024-12-04 10:44 | A.OFFPC_ITS ---
Vital Signs 12/04/24 10:45 Height 5 ft 6.54 in Weight 202 lb 4 oz BMI 32.1 BP 152/112 H Blood Pressure Location Lt brachial Position Sitting Respiration 16 Pulse 92 Pulse Source Pulse Oximeter Temp 98.1 F Temp Source Oral Pulse Oximetry (%) 96 Oxygen Delivery Method Room Air Intake Visit Reasons: follow up Allergies No Known Allergies Allergy (Verified 11/26/24 09:11) Tobacco use date assessed: 11/06/24 Dental Screening Dental Screen Date: 11/06/24 HPI HPI Comments History of Present Illness Details History of Present Illness The patient is a 64-year-old male presenting for a follow-up visit. Hypertension: - Blood pressure readings have been elev ated, with a recent measurement of 152/112 mmHg. - Lisinopril dosage will be increased to 10 mg to improve control. - A blood pressure log will be maintaine d for two weeks to assess management effectiveness. Diabetes mellitus: - Requires documentation for diabetic fo otwear. - Receiving podiatric care for foot heal th. Pain management: - Reports pain following physical therap y sessions, but intends to continue treatment. - MRI is scheduled to further investigat e the cause of pain. - Scheduled to meet with a pain manageme nt specialist for further evaluation. Review of Systems 10-point ROS reviewed and negative excep t as noted in HPI Past Medical History Health Maintenance Physical Exam General: Well-appearing, in no acute distress. Vital signs: Blood pressure is 152/112. HEENT: Normocephalic, atraumatic. PERRLA, EOMI. Conjunctiva clear, sclera anicteric. Oropharynx clear, mucous membranes moist. TMs intact bilaterally. Neck: Supple, no lymphadenopathy, no thyromegaly, no JVD or carotid bruits. Cardiovascular: RRR, normal S1/S2, no murmurs, rubs, or gallops. Peripheral pulses 2+ and symmetric. No edema. Respiratory: Lungs clear to auscultation bilaterally, no wheezes, rales, or rhonchi. Normal effort. Abdomen: Soft, non-tender, non-distended. Normoactive bowel sounds. No hepatosplenomegaly, no masses. MSK: Full range of motion, no joint swelling or deformity. Normal gait. Skin: Warm, dry, intact. No rashes, lesions, or pallor. Neuro: Alert and oriented x3. Cranial nerves II-XII intact. Strength 5/5 throughout. Sensation intact. Reflexes 2+ symmetric. Normal coordination and gait. Psych: Appropriate mood and affect. Normal judgment and insight. Plan 1. Hypertension - Lisinopril dosage increased to 10 mg t o address high blood pressure. - Patient to maintain a blood pressure l og for two weeks to monitor control. 2. Diabetes Mellitus - Paperwork for diabetic shoes to be com pleted as advised by podiatry. 3. Pain Management - Continue with physical therapy despite experiencing pain. - MRI scheduled to evaluate spinal issue s. - Appointment with pain management juan alberto gonzalez to be attended for further care. Discussion Notes During the visit, we discussed the patient's hypertension management, including increasing lisinopril to 10 mg and maintaining a blood pressure log for two weeks. We also addressed the need for diabetic shoes and the continuation of physical therapy despite pain. An MRI is scheduled to further evaluate spinal issues, and a follow-up with a paint stripper is planned. Patient was informed and verbally consented to the use of an ambient scribe for clinic note documentation during this visit. Patient Instructions - Take lisinopril 10 mg daily as prescri bed. - Record blood pressure readings twice d aily for two weeks. - Continue attending physical therapy se ssions. - Attend scheduled MRI and follow-up wit h pain management. - Complete paperwork for diabetic shoes. [facility] Medical History Insulin dependent type 2 diabetes mellitus Hypertension GERD (gastroesophageal reflux disease) Obesity, Class I, BMI 30-34.9 Osteoarthritis of right knee Surgical History History of arthroplasty of right knee Family History Father Heart attack Mother Heart attack Social History Housing: Apartment Alcohol intake: current Alcohol intake frequency: does not drink Patient Tobacco Use Status: Never used Tobacco service: No Current occupational status: disabled Cognitive needs: Yes (cane and walker) Hearing needs: No Vision needs: Yes (reading glasses) Questionnaire Thrive Questionnaire Date Thrive assessed: 11/20/24 I am a: Patient What is your living situation today?: I have a steady place to live Within the past 12 months, did the food you bought not last and you didn't have the money to get more?: Sometimes True Within the past 12 months, did you worry whether your food would run out before you got money to buy more?: Sometimes True Do you have trouble paying for medicines?: No Do you have trouble getting transportation to medical appointments?: No Do you have trouble paying your heating and electricity bill?: No Do you have trouble taking care of your child, family member or friend?: No Are you currently unemployed and looking for a job?: No Are you interested in more education?: No Please select the resources that you would like help with: None Currently or been in a relationship where the following occur: I choose not to answer THRIVE Score: 2 MOHAMUD-7 AMB Questionnaire MOHAMUD-7 Date MOHAMUD - 7 assessed: 11/06/24 Source: Developed by Drs. Anand Negron, Heidi Capps, Ugo Rankin and colleagues, with an educational rogelio from [employer]. Physical exam (Primary Care) Vital Signs: Last Vital Signs Temp 98.1 F 12/04/24 10:45 Pulse 92 12/04/24 10:45 Resp 16 12/04/24 10:45 BP 152/112 H 12/04/24 10:45 Pulse Ox 96 12/04/24 10:45 Oxygen Delivery Method Room Air 12/04/24 10:45 BMI result Body Mass Index 32.1 Tobacco/Smoking Status: Tobacco use Status Tobacco use date assessed 11/06/24 12/04/24 10:50 Patient Tobacco Use Status Never used Tobacco 12/04/24 10:50 Thrive Assessment: Date of Thrive Assessment Date Thrive assessed 11/20/24 12/04/24 10:50 Currently or been in a relationship where the following occur: I choose not to answer Coding Level of Care Code Est Pt Level 3 (77309) Diagnoses Hypertension I10 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 Insulin dependent type 2 diabetes mellitus E11.9; Z79.4 Obesity, Class I, BMI 30-34.9 E66.811 Assessment & Plan Assessment & Plan (1) Hypertension: Code(s): I10 - Essential (primary) hypertension Category: Medical (2) 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
[2024-12-04 10:45] VITALS: BP 152/112; PULSE 92; RESP 16; TEMP 36.7; O2SAT 96; BMI 32.1
--- OUTSIDE RECORDS SUMMARY | 2024-12-04 11:13 | XMS_ITS | Clinical Summary ---
Author Organization [facility] Address [address] [place] [phone] Phone Care Team Providers Care Collection Systems Worker Name Role Phone Compa Duenas NP Primary Care Provider +1- [phone] Allergies No known active allergies Medications atorvastatin [...] EDT - 10/03/2024 11:57 AM EDT Emergency [facility] Emergency [address] [place] [address] Acute exacerbation of chronic low back pain (Primary Dx); Sciatica of left side Discharge Disposition: Home or Self Care 09/25/2024 11:06 AM EDT - 09/25/2024 11:53 AM EDT [facility] Emergency [address] [place] [address] Sagar Urbano MD Acute left-sided low back [...] Stage 3a chronic kidney dise ase (CKD) ([facility] V24, [facility] V28) DX:Stage 3a chronic kidney disease (CKD) [...] Health Maintenance Due Date Last Done Comments Colorectal Cancer Screening: Colonoscopy 1958 Diabetes: Annual Foot Exam 1968 Diabetes: Annual Retina Eye Exam 1968 RSV Immunization Adult Patients (1 - Risk 60-74 years 1-dose series) 2018 Hepatitis C Screening 02/05/2022 Medicare Annual Wellness [...] Signed Date: 10/03/2024 10:17 ET Workstation ID: [id number] Transcribed By: Self Edit Transcribed Date: 10/03/2024 [...] Signed Date: 10/03/2024 10:17 ET Workstation ID: [id number] Transcribed By: Self Edit Transcribed Date: 10/03/2024 10:14 ET Thomas DUFFY IMG XR PROCEDURES Final Resu lt from Last 3 Months Insurance [employer] MEDICARE ADVANTAGE MEDICAID - [place] Care Teams Collection Systems Worker Relationship Specialty Start Date End Date Compa Duenas NP [address] [place] [address] PCP - General 03/21/22
== END 2024-12-04 11:25 | disposition home or self-care (01) ==
LOC: HO.HMCFMS 09:58
PROVIDERS: PCP Student in an Organized Health Care Education/Training Program; Visit Provider Student in an Organized Health Care Education/Training Program
DX: I10 Essential (primary) hypertension (principal); M53.87 Other specified dorsopathies, lumbosacral region; E11.9 Type 2 diabetes mellitus without complications; Z79.4 Long term (current) use of insulin; E66.811 Obesity, class 1

== ENCOUNTER → 2024-12-04 09:57 | Outpatient (BNVA) | payer MEDICARE, SELFPAY | PROVIDERS: PCP Student in an Organized Health Care Education/Training Program; Visit Provider Student in an Organized Health Care Education/Training Program | DX: I10 Essential (primary) hypertension (principal); M53.87 Other specified dorsopathies, lumbosacral region; E11.9 Type 2 diabetes mellitus without complications; E66.811 Obesity, class 1; Z68.32 Body mass index [BMI] 32.0-32.9, adult; Z79.4 Long term (current) use of insulin; Z79.899 Other long term (current) drug therapy | CPT/HCPCS: 99212 ==

== ENCOUNTER 2024-12-08 07:13 | Outpatient (REF) | payer MEDICARE, SELFPAY ==
--- NOTE | ~2024-12-08 | MR_ITS ---
EXAMINATION: MR LUMBAR SPINE WITHOUT CONTRAST CLINICAL INFORMATION: Low back pain. Symptoms started 4 months after knee replacement. History of remote lumbar surgery 20 years ago. COMPARISON: None available. TECHNIQUE: Multiplanar multisequence MR imaging of the lumbar spine was done without IV contrast. Examination was performed on a 1.5 Candace Siemens magnet, utilizing standard sequences. FINDINGS: CORONAL ALIGNMENT: -There is a mild right convex scoliosis, apex at L3-4. SAGITTAL ALIGNMENT: - There is straightening of the normal lordosis. -There is a 2 mm degenerative retrolisthesis of L3 on L4. LUMBOSACRAL JUNCTION: -Normal. There are 5 rsq-nri-dusfrod lumbar-type vertebral bodies. VERTEBRAL BODIES/BONE MARROW: -No acute fracture, compression deformity, or suspicious bone lesion is evident. -There is a large Schmorl's node in the superior endplate of L1, and superior endplate of L2. -There are mixed edematous and fatty type endplate changes at L3-4, and to a lesser degree at L4-5. -There are mild fatty type endplate changes present at L2-3 and L5-S1. -There has been prior right hemilaminotomy at L4-5. DISCS: -There is severe multilevel disc degeneration with disc vacuum phenomenon at all levels sparing L1-L2. Degeneration is most severe at L2-3, L3-4, and L4-5. SPINAL CANAL: -There is congenital spinal canal narrowing with shortened pedicles throughout the lumbar region. This will exacerbate acquired spondylosis. In addition there is epidural lipomatosis dorsally throughout the lumbar region. CONUS MEDULLARIS: -Terminates at T12-L1. Morphology and signal is normal. INTRADURAL NERVE ROOTS: - No gross nerve root mass or abnormal clumping. Axial Disc Space Images: T12-L1: No significant central canal or neural foraminal narrowing. Mild hypertrophic degenerative facet changes bilaterally. L1-L2: There is a shallow concentric disc bulge present with a superimposed right paracentral and lateral protrusion of disc material. This extends into the right neural foramen. Mild to moderate hypertrophic degenerative facet changes are present. There is dorsal epidural lipomatosis. Combination of findings is resulting in mild central canal stenosis, mild to moderate right subarticular recess stenosis, and mild right greater than left neural foraminal stenosis. L2-L3: There is a diffuse disc osteophytic extrusion extending into both foraminal zones. There is congenital spinal canal narrowing. Moderate hypertrophic degenerative facet changes bilaterally with posterior ligamentous thickening/infolding. Dorsal epidural lipomatosis. There is severe central canal stenosis with narrowing of the thecal sac to approximately 5 mm AP diameter. There is severe left and moderate to severe right subarticular recess stenosis. There is severe left greater than right neural foraminal stenosis. L3-L4: There is a concentric disc osteophytic bulge extending into the left greater than right foraminal zones. There are moderate hypertrophic degenerative facet changes bilaterally. There is posterior ligamentous thickening/infolding. There is dorsal epidural lipomatosis. There is severe central canal stenosis with AP diameter of the thecal sac reduced to 5 mm. There is severe bilateral subarticular recess stenosis left greater than right. There is severe left and moderate right neural foraminal stenosis. L4-L5: Prior right hemilaminotomy and medial facetectomy with microdiscectomy. There has been resection of the right ligamentum flavum. There is a diffuse disc osteophytic ridge complex extending into both foraminal zones, with a superimposed right foraminal extrusion of disc material. There is dorsal epidural lipomatosis. Combination of findings is resulting in moderate central canal stenosis, moderate right greater than left subarticular recess stenosis, severe right and moderate to severe left neural foraminal stenosis. L5-S1: There is a shallow disc bulge with superimposed bilateral foraminal disc osteophytic protrusions. There are mild hypertrophic degenerative facet changes with mild posterior ligamentous infolding/thickening. There is no significant central canal narrowing. There is mild right greater than left subarticular recess narrowing. There is severe bilateral neural foraminal impingement. IMAGED SI JOINTS: -Pgca-yn-dlzthhsk degenerative arthritis bilaterally. PARAVERTEBRAL AND INCLUDED EXTRASPINAL SOFT TISSUES: -The aorta is nonaneurysmal. Imaged kidneys appear normal. MR/MR lumbar spine wo con IMPRESSION: 1. Severe multilevel lumbar spondylosis superimposed upon a congenitally narrow central canal. Associated multilevel dorsal epidural lipomatosis. There is severe central canal stenosis present at L2-3 and L3-4. There is moderate central canal stenosis at L4-5. 2. Severe left neural foraminal narrowing at L3-4, severe right neural foraminal narrowing at L4-5, and severe bilateral neural foraminal impingement at L5-S1. 3. There has been a prior right hemilaminotomy and medial facetectomy with microdiscectomy at L4-5. 4. See the body of the report for further details. Electronically signed by: David Ortiz MD 12/08/2024 10:03 AM EDT RP
--- NOTE | ~2024-12-08 | XR_ITS ---
EXAMINATION: XR EYE FOREIGN BODY HISTORY: HX METAL IN EYES X3 - PRE MRI COMPARISON: There are no prior studies available for comparison. FINDINGS: Three views of the orbits demonstrate no radiopaque foreign body. The visualized paranasal sinuses are clear. XR/XR Orbits For Foreign Body IMPRESSION: No radiopaque foreign body is identified. Electronically signed by: Anand Bass MD 12/08/2024 07:55 AM EDT
--- OUTSIDE RECORDS SUMMARY | 2024-12-08 07:17 | XMS_ITS | Clinical Summary ---
Author Organization [facility] Address [address] [place] [address] Care Team Providers Care Tar Pot Man Name Role Phone Compa Duenas CHEMICAL ENGINEERING TECHNICIAN Primary Care Provider [phone] Source Comments PLEASE NOTE, if this patient [...] without complication, with long-term current use of insulin,Neuropathy Take 1 Capsule by mouth 3 (three) times daily 270 Capsule 1 4 Active polyethylene glycol, PEG, 3350 (GLYCOLAX) 17 gram/dose powderIndications:He morrhoids, unspecified hemorrhoid type Take 17 g by mouth once daily 510 g 3 5 Active blood-glucose meter monitoring kitIndications:Type 2 diabetes mellitus with stage 3a chronic kidney disease, with long-term current use of insulin,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 15 mL 5 5 Active meloxicam (MOBIC) 15 mg tablet Take 1 Tablet by mouth once daily. 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 90 Tablet 1 5 Active Active Problems Problem Noted Date Diagnosed Date Status post right knee replacement 08/19/2024 Overview (09/15/2024): Performed total right knee arthroplasty on 07/18/24 Arthrofibrosis right knee manipulation at [facility] on 09/12/24. Type 2 diabetes mellitus wit h diabetic polyneuropathy, with long-term current use of insulin 05/09/2024 Overview (09/23/2024): DM dx: ~[id number] per patient reports Glucometer: TriActive 2 (pt denies interest in CGM) Current [...] (05/29/18) Diabetes foot exam: Referral pending to [facility] as of 09/15/24 05/21/24 at [facility] Symptoms of arthritic changes in pedal [...] of feet. Diabetes retinal exam: 11/23/23 at [facility] Mild nonproliferative diabetic retinopathy [...] edema, with long-term current use of insulin 01/01/2024 Overview (09/23/2024): DM dx: ~[phone] per patient reports Glucometer: Listen Edition Ultra 2 (pt denies interest in CGM) [...] (05/29/18) Diabetes foot exam: Referral pending to [facility] as of 09/15/24 05/21/24 at [facility] Symptoms of arthritic changes in pedal [...] of feet. Diabetes retinal exam: 11/23/23 at [facility] Mild nonproliferative diabetic retinopathy OS, no macular [...] Overview (06/29/2022): [facility] Family history of [place] (myocardial infarction) 01/2022 Overview (06/29/2022): June 2022- Cardio workup negative, continue to manage risk factors Right-sided low back pain with right-sided sciat ica 11/13/2014 Overview (12/13/2021): X-rays lumbar spine 08/09/16 @ [facility] = chronic degenerative changes (disc space narrowing, anterior spurring throughout lumbar spine, facet arthritic changes L4-S1). Bilateral shoulder pain 2013 Overview (12/13/2021): December 2021: F/U [facility]; gets steroid injections regularly Essential hypertension 10/25/2012 Hyperlipidemia LDL goal <100 10/25/2012 Type 2 diabetes mellitus wit h stage 3a chronic kidney disease, with long-term current use of insulin Overview (09/23/2024): DM dx: ~2296-3469 per patient reports Glucometer: Listen Edition Ultra 2 (pt denies interest in CGM) [...] (05/29/18) Diabetes foot exam: Referral pending to [facility] as of 09/15/24 05/21/24 at [facility] Symptoms of arthritic changes in pedal [...] of feet. Diabetes retinal exam: 11/23/23 at [facility] Mild nonproliferative diabetic retinopathy [...] Date Resolved Date Stage 3a chronic kidney disease 12/24/2020 02/21/2024 Allergic rhinitis due to allergen 08/20/2013 12/13/2021 Obesity (BMI 35.0-39.9 without comorbidity) 10/25/2012 03/22/2023 Encounters Date Type Department Care Team Description 10/20/2024 4:00 PM EDT Office Visit [address] [address] Zaki Hatch, PharmD 10/17/2024 2:00 PM EDT Office Visit [address] [address] Omega Quick MD 09/15/2024 4:00 PM EDT Office Visit [address] [address] Zaki Hatch, PharmD from Last 3 Months Immunizations Immunization Administration Dates Next Due Flu, Cell Culture based, Pre servative Free, 6m+, Flucelvax 04/22/2019,01/03/2016 Flu, Preservative Free 01/23/2023,2021,11/11/2020,10/29 HEP A-HEP B ([facility]) 11/22/2018 Hep A, adult 03/18/2019 Hep B, Adult/Adol (WLBAIDB-N-GWIXI/RECOMBIVAX-ADULT) 06/28/2018,05/29/2018 Influenza (FLUZONE), high-do se, trivalent, PF 11/09/2023 PNEUMOCOCCAL CONJUGATE PCV 13 05/29/2018 PNEUMOCOCCAL POLYSACCHARIDE PPV23 (Pneumovax 23) 03/18/2019 Pfizer-TOPSEC COVID-19 Vac cine Bivalent, (CABELLO PFIZER-Magisto COVID-19 VACCINE BIVALENT, (CABELLO CAP 03/17/2022 TDAP [...] Description 12/22/2024 9:00 AM EDT Office Visit [facility] [address] [place] [id number] Zaki Hatch, PharmD [address] [place] [address] Health Maintenance Due Date Last Done Comments [...] - PCV20 or PCV21) 03/18/2024 03/18/2019, 05/29/2018 [id number] ( - season) 2024 03/17/2022, 02/02/2021, 07/16/2020, [...] Annual Screen Completed 08/19/2024 Imm-Influenza Completed 11/12/2024, 09/0 08/2023, 01/23/2023, Additional history exists Goals Goal Patient Goal Type Associated Problems Recent Progress Patient-Stated? Author Blood Pressure < 130/80 Blood Pressure Essential hypertension 130/80(2024 4:22 PM EDT) No Hemanth Capps, Maria Alejandra HEMOGLOBIN A1C < 7.0 Result Component Type 2 diabetes mellitus with stage 3a chronic kidney disease, with long-term current use of insulin 7.7( 4:45 PM EDT) No Hemanth Capps, Maria Alejandra Procedures Procedure Name Priority Date/Time Associated Diagnosis Comments REFERRAL SCANNED DOCUMENT 11/25/2024 3:00 AM EDT REFERRAL SCANNED DOCUMENT 11/24/2024 3:00 AM EDT REFERRAL SCANNED DOCUMENT 10/22/2024 3:00 AM EDT GLUCOSE, BLOOD BY GLUCOSE MONITORING DEVICE (CLIA WAIVED)POCT Routine 10/20/2024 4:22 PM EDT Type 2 diabetes mellitus with stage 3a chronic kidney disease, with long-term current use of insulin ([facility]) Type 2 diabetes mellitus with diabetic polyneuropathy, with long-term current use of insulin (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) HEALTH HISTORY SCANNED DOCUMENT 09/17/2024 3:00 AM EDT HEMOGLOBIN GLYCOSYLATED A1C Routine 09/15/2024 4:45 PM EDT Type 2 diabetes mellitus with diabetic polyneuropathy, with long-term current use of insulin ([facility]) GLUCOSE, BLOOD BY GLUCOSE MONITORING DEVICE (CLIA WAIVED)POCT Routine 09/15/2024 4:23 PM EDT Type 2 diabetes mellitus with stage 3a chronic kidney disease, with long-term current use of insulin (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) Type 2 diabetes mellitus with diabetic polyneuropathy, with long-term current use of insulin ([facility]) OTHER ORDERS SCANNED DOCUMENT 09/08/2024 3:00 AM EDT COMPREHENSIVE METABOLIC PANEL Routine 04/05/2024 9:58 AM EST Type 2 diabetes mellitus with stage 3a chronic kidney disease, with long-term current use of insulin (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, with long-term current use of insulin ([facility]) REFERRAL TO DIABETIC RETINAL EXAM Routine 11/23/2023 3:00 AM EDT Type 2 diabetes mellitus with stage 3a chronic kidney disease, with long-term current use of insulin ([facility]) LIPID PANEL Routine 11/22/2023 9:42 AM EDT Type 2 diabetes mellitus with stage 3a chronic kidney disease, with long-term current use of insulin ([facility]) Hyperlipidemia LDL goal <100 REFERRAL TO PODIATRY Routine 01/22/2023 3:00 AM EST Type 2 diabetes mellitus with stage 3a chronic kidney disease, with long-term current use of insulin ([facility]) BITEWINGS - FOUR RADIOGRAPHIC IMAGES Routine [...] Health Maintenance Results * REFERRAL SCANNED DOCUMENT (11/25/2024 3:00 AM EDT) Only the most recent of3 resultswithin the time period is included. 11/25/2024 3:00 AM EDT Compa Henrique CHEMICAL ENGINEERING TECHNICIAN SCAN REFERRAL Final Res ult * (ABNORMAL) GLUCOSE, BLOOD BY GLUCOSE MONITORING DEVICE (CLIA WAIVED)POCT Routine (10/20/2024 4:22 PM EDT) Only the most recent of2 resultswithin the time period is included. GLUCOSE 161(A) 70 - 100 mg/dL [facility] POCT Capillary Blood Blood / Unknown 4:22 PM EDT Zaki Hatch PharmD LAB - BLOOD DRAW Final Re sult [facility] POCT * HEALTH HISTORY SCANNED DOCUMENT (09/17/2024 3:00 AM EDT) 09/17/2024 3:00 AM EDT [facility] Provider Default SCAN OTHER ORDERS Final Re sult * (ABNORMAL) HEMOGLOBIN GLYCOSYLATED A1C Routine (09/15/2024 4:45 PM EDT) HEMOGLOBIN A1C 7.7(H) <5.7 % [employer] Comment: For someone without known diabetes, a [...] PM EDT 09/15/2024 4:45 PM EDT Narrative [employer] [facility] - 09/16/2024 7:02 AM EDT FASTING:NO Compa Duenas CHEMICAL ENGINEERING TECHNICIAN LAB - BLOOD DRAW Final Re sult [employer] [facility] [address] [address], [employer] [facility] [address] [place] [address] * OTHER ORDERS SCANNED DOCUMENT (09/08/2024 3:00 AM EDT) 09/08/2024 3:00 AM EDT Compa OropezaHenrique CHEMICAL ENGINEERING TECHNICIAN SCAN OTHER ORDERS Final R esult * (ABNORMAL) COMPREHENSIVE METABOLIC PANEL (04/05/2024 9:58 AM EST) GLUCOSE 123(H) 65 - 99 mg/dL [employer] Comment: Fasting reference interval For someone without known diabetes, a glucose value between 100 and 125 mg/dL is consistent with prediabetes and should be confirmed with a follow-up test. UREA NITROGEN (BUN) 20 7 - 25 mg/dL [employer] CREATININE (blood) 0.95 0.70 - 1.35 mg/dL [employer] EGFR 89 > OR = 60 mL/min/1. 73m2 [employer] BUN/CREATININE RATIO SEE NOTE: [employer] Comment: Not Reported: BUN and Creatinine are within reference range. SODIUM 140 135 - 146 mmol/L [employer] POTASSIUM 4.9 3.5 - 5.3 mmol/L [employer] CHLORIDE 104 98 - 110 mmol/L [employer] CARBON DIOXIDE 28 20 - 32 mmol/L [employer] [employer] CALCIUM 10.0 8.6 - 10.3 mg/dL [employer] [employer] PROTEIN, TOTAL 6.7 6.1 - 8.1 g/dL [employer] [facility] ALBUMIN 4.6 3.6 - 5.1 g/dL [employer] [facility] GLOBULIN 2.1 1.9 - 3.7 g/dL (calc) [employer] ALBUMIN/GLOBULI N RATIO 2.2 1.0 - 2.5 (calc) [employer] [facility] BILIRUBIN, TOTAL 0.6 0.2 - 1.2 mg/dL [employer] [facility] ALKALINE PHOSPHATASE 97 35 - 144 U/L [employer] [facility] AST 17 10 - 35 U/L [employer] [facility] ALT 29 9 - 46 U/L [employer] [facility] Blood Blood / Unknown 04/05/2024 9 :58 AM EST 04/05/2024 9:58 AM EST Narrative [employer] [facility] - 04/06/2024 5:17 AM EST FASTING:YES Xamarine Holden PharmD LAB - BLOOD DRAW Final Re sult Performing Organization Address [facility]/ZIP Co de Phone Number [employer] [address] [address], [employer] [address] [address] * MICROALBUMIN/CREATININE RATIO, URINE, RANDOM (02/08/2024 10:32 AM EST) CREATININE, RANDOM URINE 122 20 - 320 mg/dL [employer] [facility] MICROALBUMIN 1.5 mg/dL [employer] [facility] Comment: Reference Range Not established MICROALBUMIN/CREA TININE RATIO, RANDOM URINE 12 <30 mg/g creat [employer] [facility] Comment: The ADA defines abnormalities in albumin [...] 10:32 AM EST 02/08/2024 10:32 AM EST us Zaki Holden PharmD LAB URINE AMBULATORY Lyndsay l Result Performing Organization Address [facility]/ZIP Co de Phone Number [employer] [address] [address], [employer] [address] [address] * REFERRAL FOR DIABETIC RETINAL EXAM (11/23/2023 3:00 AM EDT) 11/23/2023 3:00 AM EDT us Zaki Hatch PharmD REFERRAL Edited Re sult - Final * LIPID PANEL (11/22/2023 9:42 AM EDT) CHOLESTEROL, TOTAL 166 <200 mg/dL [employer] [employer] HDL CHOLESTEROL 70 > OR = 40 mg/dL [employer] TRIGLYCERIDES 109 <150 mg/dL [employer] LDL-CHOLESTEROL 77 99 mg/dL (calc) [employer] Comment: Reference range: <100 Desirable range <100 mg/dL for primary prevention; <70 mg/dL for patients with CHD or diabetic patients with > or = 2 CHD risk factors. LDL-C is now calculated using the Pascale calculation, which is a validated novel method providing better accuracy than the Friedewald equation in the estimation of LDL-C. Vin SS et al. ROSE. 2013;310(19): 4330-4215 (http://education.[employer]/faq/FER621) CHOL/HDLC RATIO 2.4 <5.0 (calc) [employer] [employer] NON-HDL CHOLESTEROL 96 <130 mg/dL (calc) [employer] Comment: For patients with diabetes plus 1 major ASCVD risk factor, treating to a non-HDL-C goal of <100 mg/dL (LDL-C of <70 mg/dL) is considered a therapeutic option. Blood Blood / Unknown 11/22/2023 9 :42 AM EDT 11/22/2023 9:43 AM EDT Narrative [employer] - 11/23/2023 6:42 AM EDT FASTING:YES us Zaki Hatch PharmKlarissa LAB - BLOOD DRAW Final Re sult [employer] [address] [place] [address], [employer] [address] [place] [phone] * REFERRAL TO PODIATRY (01/22/2023 3:00 AM EST) 01/22/2023 3:00 AM EST Zaki Hatch PharmD REFERRAL Edited Re sult - Final * HEPATITIS A,B,C PANEL (08/21/2018 9:40 AM EDT) HEPATITIS B SURFACE ANTIBODY NEGATIVE NEGATIVE [facility] HEPATITIS B SURFACE ANTIGEN NEGATIVE NEGATIVE [facility] Comment: Over the counter supplements containing high doses of biotin may interfere with this assay. If interference is suspected, patients shoud be retested after refraining from biotin supplements for 72 hours. HEPATITIS C VIRUS DIAGNOSTIC NEGATIVE NEGATIVE [facility] HEPATITIS B CORE ANTIBODY NEGATIVE NEGATIVE [facility] HEPATITIS A ANTIBODY TOTAL NEGATIVE NEGATIVE [facility] Comment: Over the counter supplements containing high doses of biotin may interfere with this assay. If interference is suspected, patients shoud be retested after refraining from biotin supplements for 72 hours. Blood specimen (specimen) Blood / Unknown 08/21/2018 9:40 AM EDT 08/21/2018 9:[address] [facility] - 08/21/2018 1:25 PM EDT [employer] [place] [address] Cost Controller - Dalia Smith MD PT ID [id number] ORD# [id number] Louis Forrester NP LAB - BLOOD DRAW [place] [address], * COLONOSCOPY (05/05/2015 9:58 AM EST) Mikey Evans PA - 05/05/2015 9:58 AM EST Repeat in 10 years Provider [facility] PROCEDURES Final Result from Last 3 Months or Most Recently Relevant to Health Maintenance [place] [facility] DENTAL MEDICAID AETNA MEDICARE Advance Directives Healthcare Agents on File Name Relationship Healthcare Agent Veronica Dominguez Relative Health Care Agent Care Teams [place] Man Relationship Specialty Start Date End Date Compa Duenas FNP [address] [place] [address] PCP - General Family Medicine, INSPECTOR [employer] 11/19/20
--- OUTSIDE RECORDS SUMMARY | 2024-12-08 07:18 | XMS_ITS | Clinical Summary ---
Author Organization [facility] Address [address] [place] [phone] Phone Care Team Providers Care Bucket Chucker Name Role Phone Compa Duenas NP Primary Care Provider [phone]- [phone] Allergies No known active allergies Medications atorvastatin [...] EDT - 10/03/2024 11:57 AM EDT Emergency [facility] Emergency [address] [place] [address] Acute exacerbation of chronic low back pain (Primary Dx); Sciatica of left side Discharge Disposition: Home or Self Care 09/25/2024 11:06 AM EDT - 09/25/2024 11:53 AM EDT [facility] Emergency [address] [place] [address] Sagar Urbano MD Acute left-sided low back [...] Stage 3a chronic kidney dise ase (CKD) ([facility] V24, [facility] V28) DX:Stage 3a chronic kidney disease (CKD) [...] Signed Date: 10/03/2024 10:17 ET Workstation ID: [id number] Transcribed By: Self Edit Transcribed Date: 10/03/2024 [...] Signed Date: 10/03/2024 10:17 ET Workstation ID: [id number] Transcribed By: Self Edit Transcribed Date: 10/03/2024 10:14 ET Thomas DUFFY IMG XR PROCEDURES Final Resu lt from Last 3 Months Insurance [employer] MEDICARE ADVANTAGE MEDICAID - [place] Care Teams Bucket Chucker Relationship Specialty Start Date End Date Compa Duenas NP [address] [place] [address] PCP - General 03/21/22
== END 2024-12-08 07:14 | disposition home or self-care (01) ==
LOC: HO.MRI 07:13
PROVIDERS: PCP Student in an Organized Health Care Education/Training Program; Visit Provider Student in an Organized Health Care Education/Training Program
DX: M53.87 Other specified dorsopathies, lumbosacral region (principal); Z01.818 Encounter for other preprocedural examination
CPT/HCPCS: 70030; 72148

== ENCOUNTER → 2024-12-08 07:40 | Outpatient (BNV) | payer MEDICARE, SELFPAY | PROVIDERS: PCP Student in an Organized Health Care Education/Training Program; Visit Provider Radiology Diagnostic Radiology | DX: M47.817 Spondylosis without myelopathy or radiculopathy, lumbosacral region (principal); M48.061 Spinal stenosis, lumbar region without neurogenic claudication; Z98.890 Other specified postprocedural states; Z03.823 Encounter for observation for suspected inserted (injected) foreign body ruled out | CPT/HCPCS: 70030; 72148 ==

== ENCOUNTER 2024-12-17 08:51 | Outpatient (AMB) | payer MEDICARE, SELFPAY ==
--- NOTE | 2024-12-17 09:05 | A.OFFVIS_ITS ---
Intake Intake Visit Reasons: T2DM Allergies No Known Allergies Allergy (Verified 11/26/24 09:11) HPI Comprehensive Diabetes Asmnt Most Recent Diabetes Results: Microalb/Creat Ratio, (<30) 13.4 ug/mg cr 11/20/24 Cholesterol, (<200) 157 mg/dL 11/20/24 HDL Cholesterol, (>40) 62 mg/dL 11/20/24 Triglycerides, (<150) 71 mg/dL 11/20/24 Creatinine, (0.5-1.4) 0.85 mg/dL 11/20/24 BUN, (9-16) 18 mg/dL H 11/20/24 Sodium, (135-145) 142 mmol/L 11/20/24 Potassium, (3.3-5.1) 4.3 mmol/L 11/20/24 Chloride, (96-108) 106 mmol/L 11/20/24 Carbon Dioxide, (22-29) 30 mmol/L H 11/20/24 Calcium, (8.4-10.2) 9.7 mg/dL 11/20/24 AST, (5-37) 29 U/L 11/20/24 ALT, (0-40) 37 U/L 11/20/24 Total Protein, (6.5-8.0) 7.3 g/dL 11/20/24 Albumin, (3.5-5.0) 4.5 g/dL 11/20/24 [facility] Medical History Insulin dependent type 2 diabetes mellitus Hypertension GERD (gastroesophageal reflux disease) Obesity, Class I, BMI 30-34.9 Osteoarthritis of right knee Surgical History History of arthroplasty of right knee Family History Father Heart attack Mother Heart attack Social History Housing: Apartment Alcohol intake: current Alcohol intake frequency: does not drink Patient Tobacco Use Status: Never used Tobacco service: No Current occupational status: disabled Cognitive needs: Yes (cane and walker) Hearing needs: No Vision needs: Yes (reading glasses) Assessment & Plan Assessment & Plan (1) Insulin dependent type 2 diabetes mellitus: Code(s): E11.9 - Type 2 diabetes mellitus without complications; Z79.4 - 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
--- OUTSIDE RECORDS SUMMARY | 2024-12-17 09:28 | XMS_ITS | Clinical Summary ---
Author Organization [facility] Address [address] [place] [phone] Phone Care Team Providers Care Head Of Cytogenetics Name Role Phone Compa Duenas NP Primary Care Provider [phone] Allergies No known active allergies Medications atorvastatin [...] EDT - 10/03/2024 11:57 AM EDT Emergency [facility] Emergency [address] [place] [address] Acute exacerbation of chronic low back pain (Primary Dx); Sciatica of left side Discharge Disposition: Home or Self Care 09/25/2024 11:06 AM EDT - 09/25/2024 11:[address] [facility] Emergency [address] [place] [address] Sagar Urbano MD Acute left-sided low back [...] Stage 3a chronic kidney dise ase (CKD) ([facility] V24, [facility] V28) DX:Stage 3a chronic kidney [...] RSV Immunization Adult Patients (1 - Risk 50-74 years 1-dose series) 2008 Hepatitis C Screening 02/05/2022 Medicare Annual Wellness [...] Signed Date: 10/03/2024 10:17 ET Workstation ID: [id number] Transcribed By: Self Edit Transcribed Date: 10/03/2024 [...] Signed Date: 10/03/2024 10:17 ET Workstation ID: [id number] Transcribed By: Self Edit Transcribed Date: 10/03/2024 10:14 ET Thomas DUFFY IMG XR PROCEDURES Final Resu lt from Last 3 Months Insurance [employer] MEDICARE ADVANTAGE MEDICAID - [place] Care Teams Head Of Cytogenetics Relationship Specialty Start Date End Date Compa Duenas NP [address] [place] [address] PCP - General 03/21/22
--- OUTSIDE RECORDS SUMMARY | 2024-12-17 09:28 | XMS_ITS | Clinical Summary ---
Author Organization [facility] Address [address] [place] [address] Care Team Providers Care Escort Blind Name Role Phone Compa Duenas MECHANICAL MAINTENANCE FOREMAN Primary Care Provider [phone] [phone] Source Comments PLEASE NOTE, if this patient [...] to test blood sugar three times daily. 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 (Visicon Technologiesuch Delica 33G) 100 Each 5 Active alcohol [...] on 07/18/24 Arthrofibrosis right knee manipulation at [facility] on 09/12/24. Type 2 diabetes mellitus wit h diabetic polyneuropathy, with long-term current use of insulin 05/09/2024 Overview (09/23/2024): DM dx: ~6072-4828 per patient reports Glucometer: Circlefive 2 (pt denies interest in CGM) Current [...] (05/29/18) Diabetes foot exam: Referral pending to [facility] as of 09/15/24 05/21/24 at [facility] Symptoms of arthritic changes in pedal [...] of feet. Diabetes retinal exam: 11/23/23 at [facility] Mild nonproliferative diabetic retinopathy [...] of insulin 01/01/2024 Overview (09/23/2024): DM dx: ~9609-1771 per patient reports Glucometer: [employer] Ultra 2 (pt denies interest in CGM) [...] (05/29/18) Diabetes foot exam: Referral pending to [facility] as of 09/15/24 05/21/24 at [facility] Symptoms of arthritic changes in pedal [...] of feet. Diabetes retinal exam: 11/23/23 at [facility] Mild nonproliferative diabetic retinopathy [...] Overview (06/29/2022): June 20[facility] Family history of VT (myocardial infarction) 01/2022 Overview (06/29/2022): June 2022- Cardio workup negative, continue to manage risk factors Right-sided low back pain with right-sided sciat ica 11/13/2014 Overview (12/13/2021): X-rays lumbar spine 08/09/16 @ [facility] = chronic degenerative changes (disc space narrowing, anterior spurring throughout lumbar spine, facet arthritic changes L4-S1). Bilateral shoulder pain 2013 Overview (12/13/2021): December 2021: F/U [facility]; gets steroid injections regularly Essential hypertension 10/25/2012 Hyperlipidemia LDL goal <100 10/25/2012 Type 2 diabetes mellitus wit h stage 3a chronic kidney disease, with long-term current use of insulin Overview (09/23/2024): DM dx: ~5799-9402 per patient reports Glucometer: UM [employer] Ultra 2 (pt denies interest in CGM) [...] (05/29/18) Diabetes foot exam: Referral pending to [facility] as of 09/15/24 05/21/24 at [facility] Symptoms of arthritic changes in pedal [...] of feet. Diabetes retinal exam: 11/23/23 at [facility] Mild nonproliferative diabetic retinopathy [...] Description 10/20/2024 4:00 PM EDT Office Visit [address] [address] Zaki Hatch, Maria Alejandra 10/17/2024 2:00 PM EDT Office Visit [address] [address] Omega Quick MD from Last 3 Months Immunizations Immunization Administration Dates Next Due Flu, Cell Culture based, Pre servative Free, 6m+, Flucelvax 04/22/2019,01/03/2016 Flu, Preservative Free 01/23/2023,2021,11/11/2020,10/29 HEP A-HEP B ([facility]) 11/22/2018 Hep A, adult 03/18/2019 Hep B, Adult/Adol (TJRQUNF-Z-LIORX/RECOMBIVAX-ADULT) 06/28/2018,05/29/2018 Influenza (FLUZONE), high-do se, trivalent, PF 11/09/2023 PNEUMOCOCCAL CONJUGATE PCV 13 05/29/2018 PNEUMOCOCCAL POLYSACCHARIDE PPV23 (Pneumovax 23) 03/18/2019 Smart Sparrow COVID-19 Vac cine Bivalent, (CABELLO PFIZER-BIONTRover COVID-19 VACCINE BIVALENT, (CABELLO CAP 03/17/2022 TDAP [...] Description 12/22/2024 9:00 AM EDT Office Visit [facility] [address] [place] [address] Zaki Hatch, PharmD [address] [place] [address] Health Maintenance Due Date Last Done Comments [...] - PCV20 or PCV21) 03/18/2024 03/18/2019, 05/29/2018 Ste-SMRRU-21 (5 - season) 2024 03/17/2022, 02/02/2021, 07/16/2020, Additional [...] insulin 7.7( 4:45 PM EDT) No Hemanth Capps PharmD Procedures Procedure Name Priority Date/Time Associated Diagnosis Comments REFERRAL SCANNED DOCUMENT 11/25/2024 3:00 AM EDT REFERRAL SCANNED DOCUMENT 11/24/2024 3:00 AM EDT REFERRAL SCANNED DOCUMENT 10/22/2024 3:00 AM EDT GLUCOSE, BLOOD BY GLUCOSE MONITORING DEVICE (CLIA WAIVED)POCT Routine 10/20/2024 4:22 PM EDT Type 2 diabetes mellitus with stage 3a chronic kidney disease, with long-term current use of insulin ([facility]) Type 2 diabetes mellitus with diabetic polyneuropathy, with long-term current use of insulin ([facility]) 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, with long-term current use of insulin ([facility]) HEALTH HISTORY SCANNED DOCUMENT 09/17/2024 3:00 AM EDT HEMOGLOBIN GLYCOSYLATED A1C Routine 09/15/2024 4:45 PM EDT Type 2 diabetes mellitus with diabetic polyneuropathy, with long-term current use of insulin ([facility]) COMPREHENSIVE METABOLIC PANEL Routine 04/05/2024 9:58 AM EST Type 2 diabetes mellitus with stage 3a chronic kidney disease, with long-term current use of insulin ([facility]) 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, with long-term current use of insulin ([facility]) Essential hypertension MICROALBUMIN/CREATIN INE RATIO, URINE, RANDOM Routine 02/08/2024 10:32 AM EST Type 2 diabetes mellitus with stage 3a chronic kidney disease, with long-term current use of insulin ([facility]) 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, with long-term current use of insulin ([facility]) REFERRAL TO DIABETIC RETINAL EXAM Routine 11/23/2023 3:00 AM EDT Type 2 diabetes mellitus with stage 3a chronic kidney disease, with long-term current use of insulin ([facility]) LIPID PANEL Routine 11/22/2023 9:42 AM EDT Type 2 diabetes mellitus with stage 3a chronic kidney disease, with long-term current use of insulin ([facility]) Hyperlipidemia LDL goal <100 REFERRAL TO PODIATRY Routine 01/22/2023 3:00 AM EST Type 2 diabetes mellitus with stage 3a chronic kidney disease, with long-term current use of insulin ([facility]) BITEWINGS - FOUR RADIOGRAPHIC IMAGES Routine [...] is included. 11/25/2024 3:00 AM EDT Compa Duenas MECHANICAL MAINTENANCE FOREMAN SCAN REFERRAL Final Res ult * (ABNORMAL) GLUCOSE, BLOOD BY GLUCOSE MONITORING DEVICE (CLIA WAIVED)POCT Routine (10/20/2024 4:22 PM EDT) GLUCOSE 161(A) 70 - 100 mg/dL [facility]- BACK OFFICE POCT Capillary Blood Blood / Unknown 5 4:22 PM EDT Zaki Hatch PharmD LAB - BLOOD DRAW Final Re sult [facility]- BACK OFFICE POCT * HEALTH HISTORY SCANNED DOCUMENT (09/17/2024 3:00 AM EDT) 09/17/2024 3:00 AM EDT [facility] Provider Default SCAN OTHER ORDERS Final Re sult * (ABNORMAL) HEMOGLOBIN GLYCOSYLATED A1C Routine (09/15/2024 4:45 PM EDT) HEMOGLOBIN A1C 7.7(H) <5.7 % [facility] Comment: For someone without known diabetes, a [...] PM EDT 09/15/2024 4:45 PM EDT Narrative [facility] - 09/16/2024 7:02 AM EDT FASTING:NO Compa Duenas MECHANICAL MAINTENANCE FOREMAN LAB - BLOOD DRAW Final Re sult [facility] [address] [address], [facility] [address] [place] [address] * (ABNORMAL) COMPREHENSIVE METABOLIC PANEL (04/05/2024 9:58 AM EST) GLUCOSE 123(H) 65 - 99 mg/dL [facility] Comment: Fasting reference interval For someone without known diabetes, a glucose value between 100 and 125 mg/dL is consistent with prediabetes and should be confirmed with a follow-up test. UREA NITROGEN (BUN) 20 7 - 25 mg/dL [facility] CREATININE (blood) 0.95 0.70 - 1.35 mg/dL [facility] EGFR 89 > OR = 60 mL/min/1. 73m2 [facility] BUN/CREATININE RATIO SEE NOTE: - [facility] Comment: Not Reported: BUN and Creatinine are within reference range. SODIUM 140 135 - 146 mmol/L [facility] POTASSIUM 4.9 3.5 - 5.3 mmol/L [facility] CHLORIDE 104 98 - 110 mmol/L [facility] CARBON DIOXIDE 28 20 - 32 mmol/L [facility] CALCIUM 10.0 8.6 - 10.3 mg/dL [facility] PROTEIN, TOTAL 6.7 6.1 - 8.1 g/dL [facility] ALBUMIN 4.6 3.6 - 5.1 g/dL [facility] GLOBULIN 2.1 1.9 - 3.7 g/dL (calc) [facility] ALBUMIN/GLOBULI N RATIO 2.2 1.0 - 2.5 (calc) [facility] BILIRUBIN, TOTAL 0.6 0.2 - 1.2 mg/dL [facility] ALKALINE PHOSPHATASE 97 35 - 144 U/L [facility] AST 17 10 - 35 U/L [facility] ALT 29 9 - 46 U/L [facility] Blood Blood / Unknown 04/05/2024 9 :58 AM EST 04/05/2024 9:58 AM EST Narrative [facility] - 04/06/2024 5:17 AM EST FASTING:YES us Zaki Hatch PharmD LAB - BLOOD DRAW Final Re sult [facility] [address] [address], [facility] [address] [place] [address] * MICROALBUMIN/CREATININE RATIO, URINE, RANDOM (02/08/2024 10:32 AM EST) CREATININE, RANDOM URINE 122 20 - 320 mg/dL [facility] MICROALBUMIN 1.5 mg/dL [facility] [facility] Comment: Reference Range Not established MICROALBUMIN/CREA TININE RATIO, RANDOM URINE 12 <30 mg/g creat [facility] Comment: The ADA defines abnormalities in [...] 10:32 AM EST 02/08/2024 10:32 AM EST [facility] Luciais PharmD LAB URINE AMBULATORY Lyndsay l Result [facility] [address] [address], [facility] [address] [address] * REFERRAL FOR DIABETIC RETINAL EXAM (11/23/2023 3:00 AM EDT) 11/23/2023 3:00 AM EDT [facility] Hatch PharmD REFERRAL Edited Re sult - Final * LIPID PANEL (11/22/2023 9:42 AM EDT) CHOLESTEROL, TOTAL 166 <200 mg/dL [facility] HDL CHOLESTEROL 70 > OR = 40 mg/dL [facility] TRIGLYCERIDES 109 <150 mg/dL [facility] LDL-CHOLESTEROL 77 99 mg/dL (calc) [facility] Comment: Reference range: <100 Desirable range <100 mg/dL for primary prevention; <70 mg/dL for patients with CHD or diabetic patients with > or = 2 CHD risk factors. LDL-C is now calculated using the Pascale calculation, which is a validated novel method providing better accuracy than the Friedewald equation in the estimation of LDL-C. Vin NOVOA et al. ROSE. 2013;310(19): 0310-9710 (http://education.[employer]/faq/PAT161) CHOL/HDLC RATIO 2.4 <5.0 (calc) [facility] NON-HDL CHOLESTEROL 96 <130 mg/dL (calc) [facility] Comment: For patients with diabetes plus 1 major ASCVD risk factor, treating to a non-HDL-C goal of <100 mg/dL (LDL-C of <70 mg/dL) is considered a therapeutic option. Blood Blood / Unknown 11/22/2023 9 :42 AM EDT 11/22/2023 9:43 AM EDT Narrative [facility] - 11/23/2023 6:42 AM EDT FASTING:YES [facility] Zaki Hatch PharmD LAB - BLOOD DRAW Final Re sult [facility] [address] [place] [id number], [facility] [address] [place] [phone] * REFERRAL TO PODIATRY (01/22/2023 3:00 AM EST) 01/22/2023 3:00 AM EST [facility] Zaki Luciais PharmD REFERRAL Edited Re sult - Final * HEPATITIS A,B,C PANEL (08/21/2018 9:40 AM EDT) HEPATITIS B SURFACE ANTIBODY NEGATIVE NEGATIVE [facility] HEPATITIS B SURFACE ANTIGEN NEGATIVE NEGATIVE [facility] Comment: Over the counter supplements containing high doses of biotin may interfere with this assay. If interference is suspected, patients shoud be retested after refraining from biotin supplements for 72 hours. HEPATITIS C VIRUS DIAGNOSTIC NEGATIVE NEGATIVE [facility] HEPATITIS B CORE ANTIBODY NEGATIVE NEGATIVE [facility] HEPATITIS A ANTIBODY TOTAL NEGATIVE NEGATIVE [facility] Comment: Over the counter supplements containing high doses of biotin may interfere with this assay. If interference is suspected, patients shoud be retested after refraining from biotin supplements for 72 hours. Blood specimen (specimen) Blood / Unknown 08/21/2018 9:40 AM EDT 08/21/2018 9:52 AM EDT Narrative [facility] - 08/21/2018 1:25 PM EDT [facility], a member of [address] [address] Automatic Door Mechanic - Dalia Smith MD [place] [id number] ORD# [id number] Louis Forrester NP LAB - BLOOD DRAW Edited Result - Final [facility] [address] [place] [address], * COLONOSCOPY (05/05/2015 9:58 AM EST) Impressions Mikey Roque PA - 05/05/2015 9:58 AM EST Repeat in 10 years Provider [place] PROCEDURES Final Result from Last 3 Months or Most Recently Relevant to Health Maintenance [place] RE[place]ACED BY [facility] MEDICA[place] AETNA MEDICARE Advance Directives Healthcare Agents on File Name Relationship Healthcare Agent [facility] Communication Bianca Dominguez Relative Health Care Agent Care Teams Escort Blind Relationship Specialty Start Date End Date Compa Duenas FNP [address] [place] [address] PCP - General Family Medicine, PEDIATRIC NURSE PRACTITIONER 01/22/20
== END 2024-12-17 09:38 | disposition home or self-care (01) ==
LOC: HO.ENCR 08:52
PROVIDERS: PCP Student in an Organized Health Care Education/Training Program; Visit Provider Registered Nurse Diabetes Educator
DX: E11.9 Type 2 diabetes mellitus without complications (principal); Z79.4 Long term (current) use of insulin

== ENCOUNTER → 2024-12-17 08:51 | Outpatient (BNVA) | payer MEDICARE, SELFPAY | PROVIDERS: PCP Student in an Organized Health Care Education/Training Program; Visit Provider Registered Nurse Diabetes Educator | DX: E11.9 Type 2 diabetes mellitus without complications (principal); Z79.4 Long term (current) use of insulin | CPT/HCPCS: 99211 ==

== ENCOUNTER 2024-12-19 08:51 | Outpatient (AMB) | payer MEDICARE, SELFPAY ==
--- NOTE | 2024-12-19 08:58 | MHC.PC.OV ---
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 Required: No Accompanied by: Self / Same As Patient Allergies No Known Allergies Allergy (Verified 12/19/24 09:13) Tobacco use date assessed: 12/19/24 Fall risk assessment: 1 Fall in past year Last assessed Fall Risk: 11/06/24 Dental Screening Dental Screen Date: 12/19/24 Did you have a dental visit in the last 12 months?: Yes Did you have a dental problem in the last 6 months where you did not have access to dental care?: No Was dental information given to patient?: Patient has dentist HPI HPI Comments History of Present Illness Details Consent Patient was informed and verbally consented to the use of an ambient scribe for clinic note documentation during this visit. History of Present Illness The patient is a 64-year-old male presenting for management of essential hypertension, spinal disorder evaluation, and diabetes mellitus education. Essential Hypertension: The patient has been managing hypertension with lisinopril, initially at a dose of 10 mg. Recently, there has been a noted need to increase the dosage due to persistently elevated blood pressure readings. He was tasked with maintaining a blood pressure log to monitor effectiveness and aid in medication adjustment. Spinal Disorder: The patient is experiencing ongoing spinal issues, for which an MRI is scheduled to explore potential causes further. This condition incurs notable discomfort, impacting his daily activities, and a follow-up with a paint roller covers supervisor is planned. Diabetes Mellitus: The patient has a history of diabetes for which he had an appointment with a inclusion special educator but did not attend the full session. Diabetes management appears suboptimal, suggesting potential education and adherence challenges. Medications: - Lisinopril 10 mg daily for hypertension - Atorvastatin 40 mg daily for hyperlipidemia - Baclofen 10 mg for muscle spasms - Insulin: 54 units at night and Lispro during the day - Gabapentin 300 mg, three times daily for peripheral neuropathy - Acetaminophen 650 mg, extended release for pain - Meloxicam as needed for pain Review of Systems - Musculoskeletal: Reports discomfort due to spinal disorder - Endocrine: Reports challenges in diabetes mellitus management 10-point ROS reviewed and negative except as noted in HPI Past Medical History [facility] - Podiatry footwear form submitted for approval Physical Exam General: Well-appearing, in no acute distress. Vital signs: Blood pressure noted at 145, adjustments to medication planned. HEENT: Normocephalic, atraumatic. PERRLA, EOMI. Conjunctiva clear, sclera anicteric. Oropharynx clear, mucous membranes moist. TMs intact bilaterally. Neck: Supple, no lymphadenopathy, no thyromegaly, no JVD or carotid bruits. Cardiovascular: RRR, normal S1/S2, no murmurs, rubs, or gallops. Peripheral pulses 2+ and symmetric. No edema. Respiratory: Lungs clear to auscultation bilaterally, no wheezes, rales, or rhonchi. Normal effort. Abdomen: Soft, non-tender, non-distended. Normoactive bowel sounds. No hepatosplenomegaly, no masses. MSK: Full range of motion, no joint swelling or deformity. Normal gait. Skin: Warm, dry, intact. No rashes, lesions, or pallor. Neuro: Alert and oriented x3. Cranial nerves II-XII intact. Strength 5/5 throughout. Sensation intact. Reflexes 2+ symmetric. Normal coordination and gait. Psych: Appropriate mood and affect. Normal judgment and insight. Plan 1. Essential Hypertension - Increase lisinopril to 20 mg to achieve better blood pressure control. - Continue keeping a blood pressure log for ongoing monitoring. - Discussed potential side effects of increased dose, like dizziness or hypotension. 2. Spinal Disorder - Proceed with the scheduled MRI to assess underlying spinal pathology. - Follow up with a paint roller covers supervisor for continued evaluation and management. 3. Diabetes Mellitus - Encourage engagement and participation in diabetes education and management plans. - Monitor blood glucose levels and adjust insulin regimen as needed in collaboration with rn diabetes educator. Discussion Notes During the visit, I discussed with the patient the current status of his hypertension, which requires an increase in lisinopril dosage to better manage his blood pressure. We also reviewed the upcoming MRI appointment, which is essential in diagnosing the cause of his spinal disorder, and reiterated the importance of the follow-up with a paint roller covers supervisor. The patient's challenges with managing diabetes were addressed, and I emphasized the importance of attending diabetes education sessions to improve self-management and adherence to therapeutic recommendations. The potential side effects of medication changes were clearly outlined, and patient consent for these interventions was obtained. Patient Instructions - Increase lisinopril dose to 20 mg daily starting tomorrow. - Keep a daily log of your blood pressure readings and bring it to your next appointment. - Attend the scheduled MRI to evaluate your spinal condition. - Schedule and attend follow-up with your paint roller covers supervisor. - Engage in diabetes education programs and adhere to the recommended glucose monitoring regimen. Medical Decision Making In addressing the patient's essential hypertension, it was evident from his blood pressure readings that an increase in lisinopril was necessary to achieve optimal blood pressure control. Given the patient's spinal issues, the decision to proceed with an MRI was driven by the need for thorough evaluation and guidance for further management by a specialist. The patient's diabetes management requires additional education to ensure adherence and efficacy in controlling his glucose levels, hence my emphasis on attending educational sessions and follow-ups with diabetes care providers. My goal is to optimize his health through vigilant monitoring, appropriate medication adjustments, and specialist consultations as needed. Total time spent caring for the patient today was 30 minutes. This includes time spent before the visit reviewing the chart, time spent documenting, and time spent reviewing laboratory results, diagnostic imaging, medications, performing a medically necessary evaluation, counseling on diagnoses, care coordination. [facility] Medical History Insulin dependent type 2 diabetes mellitus Hypertension GERD (gastroesophageal reflux disease) Obesity, Class I, BMI 30-34.9 Osteoarthritis of right knee Surgical History History of arthroplasty of right knee Family History Father Heart attack Mother Heart attack Social History Housing: Apartment Alcohol intake: current Alcohol intake frequency: does not drink Patient Tobacco Use Status: Never used Tobacco service: No Current occupational status: disabled Cognitive needs: Yes (cane and walker) Hearing needs: No Vision needs: Yes (reading glasses) Questionnaire Thrive Questionnaire Date Thrive assessed: 12/19/24 I am a: Patient What is your living situation today?: I have a steady place to live Within the past 12 months, did the food you bought not last and you didn't have the money to get more?: Sometimes True Within the past 12 months, did you worry whether your food would run out before you got money to buy more?: Sometimes True Do you have trouble paying for medicines?: No Do you have trouble getting transportation to medical appointments?: No Do you have trouble paying your heating and electricity bill?: No Do you have trouble taking care of your child, family member or friend?: No Are you currently unemployed and looking for a job?: No Are you interested in more education?: No Please select the resources that you would like help with: None Currently or been in a relationship where the following occur: I choose not to answer THRIVE Score: 2 AUDIT C Alcohol Use Questionnaire (AUDIT-C) 1. How often do you have a drink containing alcohol?: Never Total Score: 0 MOHAMUD-7 AMB Questionnaire MOHAMUD-7 Date MOHAMUD - 7 assessed: 12/19/24 Source: Developed by Drs. Anand Negron, Heidi Capps, Ugo Rankin and colleagues, with an educational rogelio from [employer]. Physical exam (Primary Care) Vital Signs: Last Vital Signs Temp 98.2 F 12/19/24 08:59 Pulse 88 12/19/24 08:59 Resp 16 12/19/24 08:59 BP 145/73 H 12/19/24 08:59 Pulse Ox 94 12/19/24 08:59 Oxygen Delivery Method Room Air 12/19/24 08:59 BMI result Body Mass Index 32.4 Tobacco/Smoking Status: Tobacco use Status Tobacco use date assessed 12/19/24 12/19/24 09:01 Patient Tobacco Use Status Never used Tobacco 12/19/24 09:01 Thrive Assessment: Date of Thrive Assessment Date Thrive assessed 12/19/24 12/19/24 09:01 Currently or been in a relationship where the following occur: I choose not to answer Coding Level of Care Code Est Pt Level 4 (94270) Diagnoses Hypertension I10 Insulin dependent type 2 diabetes mellitus E11.9; Z79.4 Other polyneuropathy G62.89 Peripheral neuropathy type: polyneuropathy, other 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 Assessment & Plan Assessment & Plan (1) Hypertension: Code(s): I10 - Essential (primary) hypertension Category: Medical (2) Insulin dependent type 2 diabetes mellitus: Code(s): E11.9 - Type 2 diabetes mellitus without complications; Z79.4 - group home (current) use of insulin Category: Medical (3) Peripheral neuropathy: Code(s): G62.9 - Polyneuropathy, unspecified Category: Medical Qualifiers: Peripheral neuropathy type: polyneuropathy, other Qualified Code(s): G62.89 - Other specified polyneuropathies (4) 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
[2024-12-19 08:59] VITALS: BP 145/73; PULSE 88; RESP 16; TEMP 36.8; O2SAT 94; BMI 32.4
--- OUTSIDE RECORDS SUMMARY | 2024-12-19 09:23 | XMS_ITS | Clinical Summary ---
Author Organization [facility] Address [address] [place] [address] Care Team Providers Care Milk Tester Name Role Phone Compa Duenas REROLLING MACHINE OPERATOR Primary Care Provider [phone] Source Comments PLEASE NOTE, if this patient [...] cholecalciferol (VITAMIN D-3) 50 mcg (2,000 unit) capsuleIndications: Vitamin D insufficiency Take 1 Capsule by mouth once daily 90 Capsule 3 12/16/19 23 Active gabapentin (NEURONTIN) 300 mg capsuleIndications: Type 2 diabetes mellitus without complication, with long-term current use of insulin,Neuropathy Take 1 Capsule by mouth 3 (three) times daily 270 Capsule 1 02/21/20 24 Active polyethylene glycol, PEG, 3350 (GLYCOLAX) 17 gram/dose powderIndications:H emorrhoids, unspecified hemorrhoid type Take 17 g by [...] to test blood sugar three times daily. 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 ([employer] Delica 33G) 100 Each 05/10/19 25 Active alcohol swabsIndications:Ty pe 2 diabetes mellitus with stage 3a [...] (OZEMPIC) 2 mg/dose (8 mg/3 mL) pen injectorIndications :Type 2 diabetes mellitus with stage 3a chronic [...] the skin once a week. 3 mL 08/20/19 25 Active insulin lispro (ADMELOG SOLOSTAR [...] is less than 100 mg/dL (Max 30 units/daily ). 30 mL 3 08/21/19 25 Active pantoprazole (PROTONIX) 40 mg EC tablet Take 40 mg by mouth once daily. 07/20/19 25 Active traMADoL (ULTRAM) 50 mg tablet TAKE 1 TABLET BY MOUTH EVERY 6 HOURS FOR 7 DAYS 09/02/19 25 Active pen needle, diabetic (BD ULTRA-FINE SHORT PEN NEEDLE) 31 gauge x /16 ndleIndications:Typ e 2 diabetes mellitus with stage 3a [...] increase. 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 90 Tablet 1 10/21/19 25 Active meloxicam (MOBIC) 15 mg tablet TAKE 1 TABLET BY MOUTH EVERY DAY 30 Tablet 12/20/19 25 Active meloxicam (MOBIC) 15 mg tablet Take 1 Tablet by mouth once daily. 30 Tablet 1 10/18/19 25 2024 Discontinued Active Problems Problem Noted Date Diagnosed Date Status post right knee replacement 08/19/2024 Overview (09/15/2024): Performed total right knee arthroplasty on 07/18/24 [place]throfib[place] [facility]. Type 2 diabetes mellitus wit h diabetic polyneuropathy, with long-term current use of insulin 05/09/2024 Overview (09/23/2024): DM dx: ~1032-5990 per patient reports Glucometer: Point Blank Range 2 (pt denies interest in CGM) Current [...] (05/29/18) Diabetes foot exam: Referral pending to [facility] as of 09/15/24 05/21/24 at [facility] Symptoms of arthritic changes in [...] of feet. Diabetes retinal exam: 11/23/23 at [facility] Mild nonproliferative diabetic retinopathy OS, no macular [...] of insulin 01/01/2024 Overview (09/23/2024): DM dx: ~6650-4114 per patient reports Glucometer: Point Blank Range 2 (pt denies interest in CGM) Current [...] (05/29/18) Diabetes foot exam: Referral pending to [facility] as of 09/15/24 05/21/24 at [facility] Symptoms of arthritic changes in [...] bilateral toes of feet. Diabetes retinal exam: 9/20/24 at [facility] Mild nonproliferative diabetic retinopathy [...] Overview (06/29/2022): [facility] Family history of DC (myocardial infarction) 01/2022 Overview (06/29/2022): June 2022- Cardio workup negative, continue to manage risk factors Right-sided low back pain with right-sided sciat ica 11/13/2014 Overview (12/13/2021): X-rays lumbar spine 08/09/16 @ [facility] = chronic degenerative changes (disc space narrowing, anterior spurring throughout lumbar spine, facet arthritic changes L4-S1). Bilateral shoulder pain 2013 Overview (12/13/2021): December 2021: F/U [facility]; gets steroid injections regularly Essential hypertension 10/25/2012 Hyperlipidemia LDL goal <100 10/25/2012 Type 2 diabetes mellitus wit h stage 3a chronic kidney disease, with long-term current use of insulin Overview (09/23/2024): DM dx: ~2116-5906 per patient reports Glucometer: [employer] Ultra 2 (pt denies interest in CGM) Current Diabetes RX: Lantus Solostar - inject 54 units at bedtime Insulin lispro - inject 8-10 units three times daily before meals (max 30 units/day) Ozempic 2 mg once weekly every Sunday LE-I/ARB: Lisinopril 5 mg daily Urine microalbumin/Scr ratio: <30 mg/g (12/6/24) Statin: Atorvastatin 40 mg daily at bedtime Pneumococcal vaccine: Per CDC, give one dose of PCV20 or PCV21 at least 5 years after the last pneumococcal vaccine dose. Regardless of which vaccine is used (PCV20 or PCV21), their pneumococcal vaccinations are complete Received: PPSV23 (03/18/19) PCV13 (05/29/18) Diabetes foot exam: Referral pending to [facility] as of 09/15/24 05/21/24 at [facility] Symptoms of arthritic changes in pedal [...] of feet. Diabetes retinal exam: 11/23/23 at [facility] Mild nonproliferative diabetic retinopathy [...] Description 10/20/2024 4:00 PM EDT Office Visit [address] [phone] Zaki Hatch, PharmD 10/17/2024 2:00 PM EDT Office Visit [address] [phone] Omega Quick MD from Last 3 Months Immunizations Immunization Administration Dates Next Due Flu, Cell Culture based, Pre servative Free, 6m+, Flucelvax 04/22/2019,01/03/2016 Flu, Preservative Free 01/23/2023,2021,11/11/2020,10/29 HEP A-HEP B ([facility]) 11/22/2018 Hep A, adult 03/18/2019 Hep B, Adult/Adol (NICKXBF-D-EXSYL/RECOMBIVAX-ADULT) 06/28/2018,05/29/2018 Influenza (FLUZONE), high-do se, trivalent, PF 11/09/2023 PNEUMOCOCCAL CONJUGATE PCV 13 05/29/2018 PNEUMOCOCCAL POLYSACCHARIDE PPV23 (Pneumovax 23) 03/18/2019 Pfizer-Lvmama COVID-19 Vac cine Bivalent, (CABELLO PFIZER-BIONTECH COVID-19 [...] Description 12/22/2024 9:00 AM EDT Office Visit [facility] [address] [place] [phone] Zaki Hatch, PharmD [address] [place] [address] Health Maintenance Due Date Last Done Comments [...] - PCV20 or PCV21) 03/18/2024 03/18/2019, 05/29/2018 [id number] (5 - season) 2024 03/17/2022, 02/02/2021, 07/16/2020, [...] disease, with long-term current use of insulin ([facility]) Type 2 diabetes mellitus with diabetic polyneuropathy, with long-term current use of insulin ([facility]) 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, with long-term current use of insulin ([facility]) HEMOGLOBIN GLYCOSYLATED A1C Routine 09/15/2024 4:45 PM EDT Type 2 diabetes mellitus with diabetic polyneuropathy, with long-term current use of insulin ([facility]) COMPREHENSIVE METABOLIC PANEL Routine 04/05/2024 9:58 AM EST Type 2 diabetes mellitus with stage 3a chronic kidney disease, with long-term current use of insulin ([facility]) 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, with long-term current use of insulin ([facility]) Essential hypertension MICROALBUMIN/CREATIN INE RATIO, URINE, RANDOM Routine 02/08/2024 10:32 AM EST Type 2 diabetes mellitus with stage 3a chronic kidney disease, with long-term current use of insulin ([facility]) 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, with long-term current use of insulin ([facility]) REFERRAL TO DIABETIC RETINAL EXAM Routine 11/23/2023 3:00 AM EDT Type 2 diabetes mellitus with stage 3a chronic kidney disease, with long-term current use of insulin ([facility]) LIPID PANEL Routine 11/22/2023 9:42 AM EDT Type 2 diabetes mellitus with stage 3a chronic kidney disease, with long-term current use of insulin ([facility]) Hyperlipidemia LDL goal <100 REFERRAL TO PODIATRY Routine 01/22/2023 3:00 AM EST Type 2 diabetes mellitus with stage 3a chronic kidney disease, with long-term current use of insulin ([facility]) BITEWINGS - FOUR RADIOGRAPHIC IMAGES [...] included. 11/25/2024 3:00 AM EDT Compa Duenas REROLLING MACHINE OPERATOR SCAN REFERRAL Final Res ult * (ABNORMAL) GLUCOSE, BLOOD BY GLUCOSE MONITORING DEVICE (CLIA WAIVED)POCT Routine (10/20/2024 4:22 PM EDT) GLUCOSE 161(A) 70 - 100 mg/dL [facility] POCT Capillary Blood Blood / Unknown 4:22 PM EDT Zaki Hatch PharmD LAB - BLOOD DRAW Final Re sult [facility] POCT * (ABNORMAL) HEMOGLOBIN GLYCOSYLATED A1C Routine (09/15/2024 4:45 PM EDT) HEMOGLOBIN A1C 7.7(H) <5.7 % [employer] Comment: For someone without known diabetes, a [...] PM EDT 09/15/2024 4:45 PM EDT Narrative [employer] - 09/16/2024 7:02 AM EDT FASTING:NO Compa Duenas REROLLING MACHINE OPERATOR LAB - BLOOD DRAW Final Re sult Performing Organization Address [facility] Co de Phone Number [employer] [address] [place] [id number], [employer] [address] [place] [phone] * (ABNORMAL) COMPREHENSIVE METABOLIC PANEL (04/05/2024 9:58 AM EST) GLUCOSE 123(H) 65 - 99 mg/dL [employer] Comment: Fasting reference interval For someone without known diabetes, a glucose value between 100 and 125 mg/dL is consistent with prediabetes and should be confirmed with a follow-up test. UREA NITROGEN (BUN) 20 7 - 25 mg/dL [employer] CREATININE (blood) 0.95 0.70 - 1.35 mg/dL [employer] EGFR 89 > OR = 60 mL/min/1. 73m2 [employer] BUN/CREATININE RATIO SEE NOTE: [employer] [facility] Comment: Not Reported: BUN and Creatinine are within reference range. SODIUM 140 135 - 146 mmol/L [facility] POTASSIUM 4.9 3.5 - 5.3 mmol/L [facility] CHLORIDE 104 98 - 110 mmol/L [facility] CARBON DIOXIDE 28 20 - 32 mmol/L [facility] CALCIUM 10.0 8.6 - 10.3 mg/dL [facility] PROTEIN, TOTAL 6.7 6.1 - 8.1 g/dL [facility] ALBUMIN 4.6 3.6 - 5.1 g/dL [facility] GLOBULIN 2.1 1.9 - 3.7 g/dL (calc) [facility] ALBUMIN/GLOBULI N RATIO 2.2 1.0 - 2.5 (calc) [facility] BILIRUBIN, TOTAL 0.6 0.2 - 1.2 mg/dL [facility] ALKALINE PHOSPHATASE 97 35 - 144 U/L [facility] AST 17 10 - 35 U/L [facility] ALT 29 9 - 46 U/L [facility] Blood Blood / Unknown 04/05/2024 9 :58 AM EST 04/05/2024 9:58 AM EST Narrative [employer] [facility] - 04/06/2024 5:17 AM EST FASTING:YES Zaki Hatch PharmD LAB - BLOOD DRAW Final Re sult [facility] [address] [address], [facility] [address] [phone] * MICROALBUMIN/CREATININE RATIO, URINE, RANDOM (02/08/2024 10:32 AM EST) CREATININE, RANDOM URINE 122 20 - 320 mg/dL [facility] MICROALBUMIN 1.5 mg/dL [employer] [facility] Comment: Reference Range Not established MICROALBUMIN/CREA TININE RATIO, RANDOM URINE 12 <30 mg/g creat [facility] Comment: The ADA defines abnormalities in [...] EST 02/08/2024 10:32 AM EST us Zaki Hatch PharmD LAB URINE AMBULATORY Lyndsay l Result [facility] [address] [address], [facility] [address] [place] [address] * REFERRAL FOR DIABETIC RETINAL EXAM (11/23/2023 3:00 AM EDT) 11/23/2023 3:00 AM EDT [place] Zaki Hatch PharmD REFERRAL Edited Re sult - Final * LIPID PANEL (11/22/2023 9:42 AM EDT) CHOLESTEROL, TOTAL 166 <200 mg/dL [employer] HDL CHOLESTEROL 70 > OR = 40 mg/dL [employer] TRIGLYCERIDES 109 <150 mg/dL [employer] [facility] LDL-CHOLESTEROL 77 99 mg/dL (calc) [facility] Comment: Reference range: <100 Desirable range <100 mg/dL for primary prevention; <70 mg/dL for patients with CHD or diabetic patients with > or = 2 CHD risk factors. LDL-C is now calculated using the Vin-Amber calculation, which is a validated novel method providing better accuracy than the Friedewald equation in the estimation of LDL-C. Vin NOVOA et al. ROSE. 2013;310(19): 8847-9856 (http://education.Planview.TripGems/faq/LFP197) CHOL/HDLC RATIO 2.4 <5.0 (calc) [employer] [facility] NON-HDL CHOLESTEROL 96 <130 mg/dL (calc) [employer] Comment: For patients with diabetes plus 1 major ASCVD risk factor, treating to a non-HDL-C goal of <100 mg/dL (LDL-C of <70 mg/dL) is considered a therapeutic option. Blood Blood / Unknown 11/22/2023 9 :42 AM EDT 11/22/2023 9:43 AM EDT Narrative [facility] - 11/23/2023 6:42 AM EDT FASTING:YES us Zaki Luciais PharmD LAB - BLOOD DRAW Final Re sult [facility] [address] [address], [facility] [place] [employer] [address] [place] [address] * REFERRAL TO PODIATRY (01/22/2023 3:00 AM EST) 01/22/2023 3:00 AM EST us Zaki Holden PharmD REFERRAL Edited Re sult - Final * HEPATITIS A,B,C PANEL (08/21/2018 9:40 AM EDT) HEPATITIS B SURFACE ANTIBODY NEGATIVE NEGATIVE [facility] HEPATITIS B SURFACE ANTIGEN NEGATIVE NEGATIVE [facility] Comment: Over the counter supplements containing high doses of biotin may interfere with this assay. If interference is suspected, patients shoud be retested after refraining from biotin supplements for 72 hours. HEPATITIS C VIRUS DIAGNOSTIC NEGATIVE NEGATIVE [facility] HEPATITIS B CORE ANTIBODY NEGATIVE NEGATIVE [facility] HEPATITIS A ANTIBODY TOTAL NEGATIVE NEGATIVE [facility] Comment: Over the counter supplements containing high doses of biotin may interfere with this assay. If interference is suspected, patients shoud be retested after refraining from biotin supplements for 72 hours. Blood specimen (specimen) Blood / Unknown 08/21/2018 9:40 AM EDT 08/21/2018 9:52 AM EDT N[facility]ative [facility] - 08/21/2018 1:25 PM EDT [employer] [address] Music Researcher - Dalia Smith [place] [id number] ORD# [id number] Louis Forrester NP LAB - BLOOD DRAW Edited Result - Final [facility] [address] [place] [address], * COLONOSCOPY (05/05/2015 9:58 AM EST) Impressions Mikey Roque PA - 05/05/2015 9:58 AM EST Repeat in 10 years Provider [place] PROCEDURES Final Result from Last 3 Months or Most Recently Relevant to Health Maintenance Insurance [place] [facility] [place] AETNA MEDICARE Advance Directives Healthcare Agents on File Name Relationship Healthcare Agent Mahamedpa joey Dominguez Relative Health Care Agent Care Teams Milk Tester Relationship Specialty Start Date End Date Compa Duenas FNP [address] [place] [address] PCP - General Family Medicine, MUD WORKER 01/22/20
--- OUTSIDE RECORDS SUMMARY | 2024-12-19 09:23 | XMS_ITS | Clinical Summary ---
Author Organization [facility] Address [address] [place] [phone] Phone Care Team Providers Care Right Of Way Appraiser Name Role Phone Compa Duenas NP Primary Care Provider +1- [phone] Allergies No known active allergies Medications atorvastatin [...] EDT - 10/03/2024 11:57 AM EDT Emergency [facility] Emergency [address] [place] [address] Acute exacerbation of chronic low back pain (Primary Dx); Sciatica of left side Discharge Disposition: Home or Self Care 09/25/2024 11:06 AM EDT - 09/25/2024 11:53 AM EDT [facility] Emergency [address] [place] [phone] Sagar Urbano MD Acute left-sided low back [...] Stage 3a chronic kidney dise ase (CKD) ([facility] V24, [facility] V28) DX:Stage 3a chronic kidney disease [...] Signed Date: 10/03/2024 10:17 ET Workstation ID: [id number] Transcribed By: Self Edit Transcribed Date: 10/03/2024 [...] Signed Date: 10/03/2024 10:17 ET Workstation ID: [id number] Transcribed By: Self Edit Transcribed Date: 10/03/2024 10:14 ET Thomas DUFFY IMG XR PROCEDURES Final Resu lt from Last 3 Months Insurance [employer] MEDICARE ADVANTAGE MEDICAID - [place] Care Teams Right Of Way Appraiser Relationship Specialty Start Date End Date Compa Duenas NP [address] [place] [address] PCP - General 03/21/22
== END 2024-12-19 09:31 | disposition home or self-care (01) ==
LOC: HO.HMCFMS 08:51
PROVIDERS: PCP Student in an Organized Health Care Education/Training Program; Visit Provider Student in an Organized Health Care Education/Training Program
DX: I10 Essential (primary) hypertension (principal); E11.9 Type 2 diabetes mellitus without complications; Z79.4 Long term (current) use of insulin; G62.89 Other specified polyneuropathies; M53.87 Other specified dorsopathies, lumbosacral region

== ENCOUNTER → 2024-12-19 08:51 | Outpatient (BNVA) | payer MEDICARE, SELFPAY | PROVIDERS: PCP Student in an Organized Health Care Education/Training Program; Visit Provider Student in an Organized Health Care Education/Training Program | DX: I10 Essential (primary) hypertension (principal); E11.9 Type 2 diabetes mellitus without complications; G62.89 Other specified polyneuropathies; M53.87 Other specified dorsopathies, lumbosacral region; Z79.4 Long term (current) use of insulin; Z79.899 Other long term (current) drug therapy | CPT/HCPCS: 99212 ==

== ENCOUNTER 2024-12-23 13:59 | Outpatient (AMB) | payer MEDICARE, MEDICAID, SELFPAY ==
--- NOTE | 2024-12-23 14:07 | MHC.OFFVIS ---
Vital Signs 12/23/24 14:11 Height 5 ft 6.54 in Weight 204 lb BMI 32.4 BP 134/84 Blood Pressure Location Lt brachial Position Sitting Pulse 95 Pulse Source Pulse Oximeter Pulse Oximetry (%) 99 Oxygen Delivery Method Room Air Intake Visit Reasons: Dorsalgia Intake Note: Pain today 10 Membership Solicitor Required: No Accompanied by: Self / Same As Patient Allergies No Known Allergies Allergy (Verified 12/23/24 14:13) HPI Comments Details: The patient is a 64-year-old male presenting with chronic low back pain and sciatica. The pain began after a right knee replacement surgery approximately four months ago and has been persistent since then. The patient describes the pain as constant, with a severity of 10/10, particularly worse in the morning. Patient also reports significant right knee pain with limited range of motion and limited mobility. The back pain radiates down the left leg, causing numbness, tingling and itching along his left lateral hip and thigh and into his lower leg laterally and foot, and is associated with neurogenic claudication. The patient has a history of diabetes mellitus, managed with insulin and dietary modifications, with a recent A1c of 7.6%. 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 The MRI also showed severe neuroforaminal narrowing at multiple levels, contributing to the patient's symptoms. The patient has tried various medications, including Percocet, Tylenol, meloxicam and gabapentin, with limited relief. He reports that Percocet provides temporary relief, but the pain returns after an hour. The patient has not undergone any recent back surgery but had a right whitney-laminotomy and medial facetectomy with microdiscectomy at L4-L5 many years ago. He was referred to [facility] last month, but has not been scheduled to see them as of today. - Onset: Began after right knee replacement surgery four months ago - Quality: Constant, severe, 10/10, worse in the morning, numbness, tingling, pulling, shooting, radiating - Location: Lower back, radiating down the left leg; right knee pain s/p TKA - Radiation: Left leg, causing numbness and itching - Exacerbating factors: Walking, standing, climbing stairs, bending - Relieving factors: Lying down, Percocet provides temporary relief - Interference: Limits walking to about 20 feet before needing rest - Affect: Pain significantly impacts daily activities and mobility - Analgesia: Currently using Percocet, Tylenol, and gabapentin with limited relief - Adverse Effects: No specific adverse effects reported from medications - Activities of Daily Living: Pain limits walking and requires frequent rest - Aberrant Drug Related Behaviors: No aberrant behaviors reported [facility] Medical History Insulin dependent type 2 diabetes mellitus Hypertension GERD (gastroesophageal reflux disease) Obesity, Class I, BMI 30-34.9 Osteoarthritis of right knee Surgical History History of arthroplasty of right knee Family History Father Heart attack Mother Heart attack Social History Housing: Apartment Alcohol intake: current Alcohol intake frequency: does not drink Patient Tobacco Use Status: Never used Tobacco service: No Current occupational status: disabled Cognitive needs: Yes (cane and walker) Hearing needs: No Vision needs: Yes (reading glasses) Review of Systems Const Details: - Musculoskeletal: Reports chronic low back pain, sciatica, and post-knee replacement pain - Neurological: Reports numbness and itching in the left leg; denies saddle anesthesia, report left leg weakness - Endocrine: Reports diabetes mellitus, managed with insulin - Genitourinary: Denies urinary or bowel incontinence All systems reviewed & are unremarkable except as noted in HPI and below Physical Exam Vital Signs: Last Vital Signs Pulse 95 12/23/24 14:11 BP 134/84 12/23/24 14:11 Pulse Ox 99 12/23/24 14:11 Oxygen Delivery Method Room Air 12/23/24 14:11 BMI result Body Mass Index 32.4 General: Appears afebrile. Alert and oriented. Mood and affect appropriate. Follows and participates in conversation appropriately. Respiratory effort is unlabored. No cough. Able to transition from sit to stand unassisted. Ambulates with slow, antalgic gait. General: Yes no CVA tenderness Back/Spine/Pelvis Other: Limited lumbar ROM due to pain. Lumbar flexion forward, bending and limited twisting reproduces severe pain, lumbar extension causes mild to moderate pain. Demonstrates 5/5 right and 4/5 left strength of quadriceps bilaterally as well as flexion/dorsiflexion of bilateral feet against resistance. 2+ pedal pulses bilaterally. Straight leg rise with dorsiflexion positive on the left. +1 left (not checked right due to knee pain) patellar and +1 achilles reflexes bilaterally. Facet loading test positive bilaterally. Glenny sign, Alf?s, Pelvic compression and Stinchfield tests are positive bilaterally. No groin pain with I/E hip rotations. Valsalva maneuver is positive. Back: no CVA tenderness Cervical Spine: cervical ROM normal and No Cervical spine tenderness Thoracic/Lumbar Spine: thoracic and lumbar spine normal to inspection, Thoracic/lumbar spine scar(s), Lasegue's sign positive on the left and localized, pain with thoraco-lumbar ROM, paraspinal muscle tenderness on the left greater than right, thoraco-lumbar ROM limited, No thoracic spinal tenderness and lumbar spinal tenderness at L4 and at L5 Sacroiliac joints: bilaterally tender to palpation (mild) Results Reviewed Results Reviewed: MR LUMBAR SPINE WITHOUT CONTRAST 12/08/24 CLINICAL INFORMATION: Low back pain. Symptoms started 4 months after knee replacement. History of remote lumbar surgery 20 years ago. COMPARISON: None available. TECHNIQUE: Multiplanar multisequence MR imaging of the lumbar spine was done without IV contrast. Examination was performed on a 1.5 Candace Siemens magnet, utilizing standard sequences. FINDINGS: CORONAL ALIGNMENT: -There is a mild right convex scoliosis, apex at L3-4. SAGITTAL ALIGNMENT: - There is straightening of the normal lordosis. -There is a 2 mm degenerative retrolisthesis of L3 on L4. LUMBOSACRAL JUNCTION: -Normal. There are 5 ike-ckw-tyqylni lumbar-type vertebral bodies. VERTEBRAL BODIES/BONE MARROW: -No acute fracture, compression deformity, or suspicious bone lesion is evident. -There is a large Schmorl's node in the superior endplate of L1, and superior endplate of L2. -There are mixed edematous and fatty type endplate changes at L3-4, and to a lesser degree at L4-5. -There are mild fatty type endplate changes present at L2-3 and L5-S1. -There has been prior right hemilaminotomy at L4-5. DISCS: -There is severe multilevel disc degeneration with disc vacuum phenomenon at all levels sparing L1-L2. Degeneration is most severe at L2-3, L3-4, and L4-5. SPINAL CANAL: -There is congenital spinal canal narrowing with shortened pedicles throughout the lumbar region. This will exacerbate acquired spondylosis. In addition there is epidural lipomatosis dorsally throughout the lumbar region. CONUS MEDULLARIS: -Terminates at T12-L1. Morphology and signal is normal. INTRADURAL NERVE ROOTS: - No gross nerve root mass or abnormal clumping. Axial Disc Space Images: T12-L1: No significant central canal or neural foraminal narrowing. Mild hypertrophic degenerative facet changes bilaterally. L1-L2: There is a shallow concentric disc bulge present with a superimposed right paracentral and lateral protrusion of disc material. This extends into the right neural foramen. Mild to moderate hypertrophic degenerative facet changes are present. There is dorsal epidural lipomatosis. Combination of findings is resulting in mild central canal stenosis, mild to moderate right subarticular recess stenosis, and mild right greater than left neural foraminal stenosis. L2-L3: There is a diffuse disc osteophytic extrusion extending into both foraminal zones. There is congenital spinal canal narrowing. Moderate hypertrophic degenerative facet changes bilaterally with posterior ligamentous thickening/infolding. Dorsal epidural lipomatosis. There is severe central canal stenosis with narrowing of the thecal sac to approximately 5 mm AP diameter. There is severe left and moderate to severe right subarticular recess stenosis. There is severe left greater than right neural foraminal stenosis. L3-L4: There is a concentric disc osteophytic bulge extending into the left greater than right foraminal zones. There are moderate hypertrophic degenerative facet changes bilaterally. There is posterior ligamentous thickening/infolding. There is dorsal epidural lipomatosis. There is severe central canal stenosis with AP diameter of the thecal sac reduced to 5 mm. There is severe bilateral subarticular recess stenosis left greater than right. There is severe left and moderate right neural foraminal stenosis. L4-L5: Prior right hemilaminotomy and medial facetectomy with microdiscectomy. There has been resection of the right ligamentum flavum. There is a diffuse disc osteophytic ridge complex extending into both foraminal zones, with a superimposed right foraminal extrusion of disc material. There is dorsal epidural lipomatosis. Combination of findings is resulting in moderate central canal stenosis, moderate right greater than left subarticular recess stenosis, severe right and moderate to severe left neural foraminal stenosis. L5-S1: There is a shallow disc bulge with superimposed bilateral foraminal disc osteophytic protrusions. There are mild hypertrophic degenerative facet changes with mild posterior ligamentous infolding/thickening. There is no significant central canal narrowing. There is mild right greater than left subarticular recess narrowing. There is severe bilateral neural foraminal impingement. IMAGED SI JOINTS: -Lhne-tw-elyooxqm degenerative arthritis bilaterally. PARAVERTEBRAL AND INCLUDED EXTRASPINAL SOFT TISSUES: -The aorta is nonaneurysmal. Imaged kidneys appear normal. IMPRESSION: 1. Severe multilevel lumbar spondylosis superimposed upon a congenitally narrow central canal. Associated multilevel dorsal epidural lipomatosis. There is severe central canal stenosis present at L2-3 and L3-4. There is moderate central canal stenosis at L4-5. 2. Severe left neural foraminal narrowing at L3-4, severe right neural foraminal narrowing at L4-5, and severe bilateral neural foraminal impingement at L5-S1. 3. There has been a prior right hemilaminotomy and medial facetectomy with microdiscectomy at L4-5. 4. See the body of the report for further details. Assessment & Plan Assessment & Plan (1) Spinal stenosis, lumbar region with neurogenic claudication: Code(s): M48.062 - Spinal stenosis, lumbar region with neurogenic claudication Category: Medical (2) Lumbar degenerative disc disease: Code(s): M51.36 - Other intervertebral disc degeneration, lumbar region Category: Medical (3) Lumbosacral spondylosis: Code(s): M47.817 - Spondylosis without myelopathy or radiculopathy, lumbosacral region Category: Medical (4) Chronic knee pain after total replacement of right knee joint: Code(s): M25.561 - Pain in right knee; G89.29 - Other chronic pain; Z96.651 - Presence of right artificial knee joint Category: Medical (5) Sacroiliac joint pain: Code(s): M53.3 - Sacrococcygeal disorders, not elsewhere classified Category: Medical Plan The plan includes referring the patient to a [facility] for further evaluation and management of severe lumbar spinal stenosis and associated symptoms. The patient will be evaluated for potential nerve block procedures to manage right knee pain for potential Sprint PNS trial. Schedule Right Diagnostic Femoral Nerve Block with local and fluoroscopy for potential Sprint PNS trial. Expectations, risks and benefits were reviewed. Patient is aware he will be contacted to schedule this procedure. The patient is advised to continue current medications, including gabapentin and Tylenol, and to start Celebrex for additional pain relief. The patient is encouraged to use a cane to assist with mobility and to avoid exacerbating activities. All questions and concerns have been answered and patient agreed with the treatment plan. Follow up after knee injection and sooner as needed. Patient was informed and verbally consented to the use of an ambient scribe for clinic note documentation during this visit. Orders: Referrals Neuro Spine Referral M48.062 - Spinal stenosis, lumbar region with neurogenic claudication Medications: New celecoxib (Celebrex) Take with food and full glass of water. Stop meloxicam. 200 mg PO BID PRN 60 caps 0RF pain 30 days M47.817 - Spondylosis without myelopathy or radiculopathy, lumbosacral region, M48.062 - Spinal stenosis, lumbar region with neurogenic claudication, M51.36 - Other intervertebral disc degeneration, lumbar region Coding Level of Care Code New Pt Level 4 (77279) Diagnoses Spinal stenosis, lumbar region with neurogenic claudication M48.062 Lumbar degenerative disc disease M51.36 Lumbosacral spondylosis M47.817 Chronic knee pain after total replacement of right knee joint M25.561; G89.29; Z96.651 Sacroiliac joint pain M53.3
[2024-12-23 14:11] VITALS: BP 134/84; PULSE 95; O2SAT 99; BMI 32.4
--- OUTSIDE RECORDS SUMMARY | 2024-12-23 18:47 | XMS_ITS | Clinical Summary ---
Author Organization [facility] Address [address] [place] [address] Care Team Providers Care Life Sciences Manager Name Role Phone Compa Duenas SEMICONDUCTOR WAFER INSPECTOR Primary Care Provider [phone] [phone] Source Comments PLEASE NOTE, if this patient [...] to test blood sugar three times daily. (Raizlabsuch Ultra 2) 1 Each 05/10/19 25 Active [...] to test blood sugar three times daily. 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 (LendingRobot Delica 33G) 100 Each 05/10/19 25 Active [...] on 07/18/24 Arthrofibrosis right knee manipulation at [facility] on 09/12/24. Type 2 diabetes mellitus wit h diabetic polyneuropathy, with long-term current use of insulin 05/09/2024 Overview (09/23/2024): DM dx: ~[id number] per patient reports Glucometer: Aurigo Software 2 (pt denies interest in CGM) Current [...] (05/29/18) Diabetes foot exam: Referral pending to [facility] as of 09/15/24 05/21/24 at [facility] Symptoms of arthritic changes in pedal [...] of feet. Diabetes retinal exam: 11/23/23 at [facility] Mild nonproliferative diabetic retinopathy OS, no macular [...] of insulin 01/01/2024 Overview (09/23/2024): DM dx: ~0325-1729 per patient reports Glucometer: Aurigo Software 2 (pt denies interest in CGM) Current [...] (05/29/18) Diabetes foot exam: Referral pending to [facility] as of 09/15/24 05/21/24 at [facility] Symptoms of arthritic changes in pedal [...] of feet. Diabetes retinal exam: 9/20/24 at [facility] Mild nonproliferative diabetic retinopathy [...] Overview (06/29/2022): [facility] Family history of [place] (myocardial infarction) 01/2022 Overview (06/29/2022): June 2022- Cardio workup negative, continue to manage risk factors Right-sided low back pain with right-sided sciat ica 11/13/2014 Overview (12/13/2021): X-rays lumbar spine 08/09/16 @ [facility] = chronic degenerative changes (disc space narrowing, anterior spurring throughout lumbar spine, facet arthritic changes L4-S1). Bilateral shoulder pain 2013 Overview (12/13/2021): December 2021: F/U [facility]; gets steroid injections regularly Essential hypertension 10/25/2012 Hyperlipidemia LDL goal <100 10/25/2012 Type 2 diabetes mellitus wit h stage 3a chronic kidney disease, with long-term current use of insulin Overview (09/23/2024): DM dx: ~5551-4653 per patient reports Glucometer: LendingRobot Ultra 2 (pt denies interest in CGM) [...] (05/29/18) Diabetes foot exam: Referral pending to [facility] as of 09/15/24 05/21/24 at [facility] Symptoms of arthritic changes in pedal [...] of feet. Diabetes retinal exam: 11/23/23 at [facility] Mild nonproliferative diabetic retinopathy [...] Description 10/20/2024 4:00 PM EDT Office Visit [address] [phone] Zaki Hatch, PharmD 10/17/2024 2:00 PM EDT Office Visit [address] [phone] Omega Quick MD from Last 3 Months Immunizations Immunization Administration Dates Next Due Flu, Cell Culture based, Pre servative Free, 6m+, Flucelvax 04/22/2019,01/03/2016 Flu, Preservative Free 01/23/2023,2021,11/11/2020,10/29 HEP A-HEP B ([facility]) 11/22/2018 Hep A, adult 03/18/2019 Hep B, Adult/Adol (SCKHKPC-Y-NCHIG/RECOMBIVAX-ADULT) 06/28/2018,05/29/2018 Influenza (FLUZONE), high-do se, trivalent, PF 11/09/2023 PNEUMOCOCCAL CONJUGATE PCV 13 05/29/2018 PNEUMOCOCCAL POLYSACCHARIDE PPV23 (Pneumovax 23) 03/18/2019 Pfizer-Nixon COVID-19 Vac cine Bivalent, (CABELLO PFIZER-BIONTECH COVID-19 [...] 10/20/2024 4:22 PM EDT Plan of Treatment Health Maintenance Due [...] - PCV20 or PCV21) 03/18/2024 03/18/2019, 05/29/2018 [id number] ( season) 2024 03/17/2022, 02/02/2021, 07/16/2020, Additional history exists Lipid Screening 11/21/2024 11/22/2023, 01/04, 10/23/2022, Additional history exists Retinopathy Screening 11/22/2024 11/23/2023 , 05/07/2018, 12/21/2014 Falls Prevention 01/01/2025 01/02/2024 Urine Albumin Creatinine Rat io Screening 02/07/2025 02/08/2024, 01/23/2023, 03/31/2020, Additional history exists Hemoglobin A1c 03/18/2025 09/15/2024, 020 03/2024, 01/03/2024, Additional history exists Serum Creatinine [...] use of insulin 7.7( 4:45 PM EDT) Hemanth Prieto, PharmD Procedures Procedure Name Priority Date/Time Associated Diagnosis Comments REFERRAL SCANNED DOCUMENT 11/25/2024 3:00 AM EDT REFERRAL SCANNED DOCUMENT 11/24/2024 3:00 AM EDT REFERRAL SCANNED DOCUMENT 10/22/2024 3:00 AM EDT GLUCOSE, BLOOD BY GLUCOSE MONITORING DEVICE (CLIA WAIVED)POCT Routine 10/20/2024 4:22 PM EDT Type 2 diabetes mellitus with stage 3a chronic kidney disease, with long-term current use of insulin ([facility] Type 2 diabetes mellitus with diabetic polyneuropathy, with long-term current use of insulin ([facility]) 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, with long-term current use of insulin ([facility]) HEMOGLOBIN GLYCOSYLATED A1C Routine 09/15/2024 4:45 PM EDT Type 2 diabetes mellitus with diabetic polyneuropathy, with long-term current use of insulin ([facility]) COMPREHENSIVE METABOLIC PANEL Routine 04/05/2024 9:58 AM EST Type 2 diabetes mellitus with stage 3a chronic kidney disease, with long-term current use of insulin ([facility]) 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, with long-term current use of insulin ([facility]) Essential hypertension MICROALBUMIN/CREATIN INE RATIO, URINE, RANDOM Routine 02/08/2024 10:32 AM EST Type 2 diabetes mellitus with stage 3a chronic kidney disease, with long-term current use of insulin ([facility]) 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, with long-term current use of insulin ([facility]) REFERRAL TO DIABETIC RETINAL EXAM Routine 11/23/2023 3:00 AM EDT Type 2 diabetes mellitus with stage 3a chronic kidney disease, with long-term current use of insulin ([facility]) LIPID PANEL Routine 11/22/2023 9:42 AM EDT Type 2 diabetes mellitus with stage 3a chronic kidney disease, with long-term current use of insulin ([facility]) Hyperlipidemia LDL goal <100 REFERRAL TO PODIATRY Routine 01/22/2023 3:00 AM EST Type 2 diabetes mellitus with stage 3a chronic kidney disease, with long-term current use of insulin ([facility]) BITEWINGS - FOUR RADIOGRAPHIC IMAGES [...] included. 11/25/2024 3:00 AM EDT Compa Duenas SEMICONDUCTOR WAFER INSPECTOR SCAN REFERRAL Final Res ult * (ABNORMAL) GLUCOSE, BLOOD BY GLUCOSE MONITORING DEVICE (CLIA WAIVED)POCT Routine (10/20/2024 4:22 PM EDT) GLUCOSE 161(A) 70 - 100 mg/dL [facility] POCT Capillary Blood Blood / Unknown 4:22 PM EDT Zaki Hatch PharmD LAB - BLOOD DRAW Final Re sult [facility]- BACK OFFICE POCT * (ABNORMAL) HEMOGLOBIN GLYCOSYLATED A1C Routine (09/15/2024 4:45 PM EDT) HEMOGLOBIN A1C 7.7(H) <5.7 % [facility] Comment: For someone without known diabetes, a [...] PM EDT 09/15/2024 4:45 PM EDT Narrative [facility] - 09/16/2024 7:02 AM EDT FASTING:NO Compa Duenas SEMICONDUCTOR WAFER INSPECTOR LAB - BLOOD DRAW Final Re sult [facility] [address] [address], [facility] [address] [place] [address] * (ABNORMAL) COMPREHENSIVE METABOLIC PANEL (04/05/2024 9:58 AM EST) Pathologist [facility] GLUCOSE 123(H) 65 - 99 mg/dL [facility] Comment: Fasting reference interval For someone without known diabetes, a glucose value between 100 and 125 mg/dL is consistent with prediabetes and should be confirmed with a follow-up test. [facility] NITROGEN (BUN) 20 7 - 25 mg/dL [facility] CREATININE (blood) 0.95 0.70 - 1.35 mg/dL [facility] EGFR 89 > OR = 60 mL/min/1. 73m2 [facility] BUN/CREATININE RATIO SEE NOTE: [facility] Comment: Not Reported: BUN and Creatinine are within reference range. SODIUM 140 135 - 146 mmol/L [facility] POTASSIUM 4.9 3.5 - 5.3 mmol/L [facility] CHLORIDE 104 98 - 110 mmol/L [facility] CARBON DIOXIDE 28 20 - 32 mmol/L [facility] CALCIUM 10.0 8.6 - 10.3 mg/dL [facility] PROTEIN, TOTAL 6.7 6.1 - 8.1 g/dL [facility] ALBUMIN 4.6 3.6 - 5.1 g/dL [facility] GLOBULIN 2.1 1.9 - 3.7 g/dL (calc) [facility] ALBUMIN/GLOBULI N RATIO 2.2 1.0 - 2.5 (calc) [facility] BILIRUBIN, TOTAL 0.6 0.2 - 1.2 mg/dL [facility] ALKALINE PHOSPHATASE 97 35 - 144 U/L [facility] AST 17 10 - 35 U/L [facility] ALT 29 9 - 46 U/L [facility] Blood Blood / Unknown 04/05/2024 9 :58 AM EST 04/05/2024 9:58 AM EST Narrative [facility] - 04/06/2024 5:17 AM EST FASTING:YES Xanofie Arganteal PharmD LAB - BLOOD DRAW Final Re sult [facility] [address] [address], [facility] [address] [address] * MICROALBUMIN/CREATININE RATIO, URINE, RANDOM (02/08/2024 10:32 AM EST) CREATININE, RANDOM URINE 122 20 - 320 mg/dL [facility] MICROALBUMIN 1.5 mg/dL [facility] Comment: Reference Range Not established MICROALBUMIN/CREA TININE RATIO, RANDOM URINE 12 <30 mg/g creat [facility] Comment: The ADA defines abnormalities in albumin [...] PharmD LAB URINE AMBULATORY Lyndsay l Result [facility] [address] [address], [facility] [address] [place] [address] * REFERRAL FOR DIABETIC RETINAL EXAM (11/23/2023 3:00 AM EDT) 11/23/2023 3:00 AM EDT Ici Montreuil Zaki Hatch PharmD REFERRAL Edited Re sult - Final * LIPID PANEL (11/22/2023 9:42 AM EDT) CHOLESTEROL, TOTAL 166 <200 mg/dL [facility] HDL CHOLESTEROL 70 > OR = 40 mg/dL [facility] TRIGLYCERIDES 109 <150 mg/dL [facility] LDL-CHOLESTEROL 77 99 mg/dL (calc) [facility] Comment: Reference range: <100 Desirable range <100 mg/dL for primary prevention; <70 mg/dL for patients with CHD or diabetic patients with > or = 2 CHD risk factors. LDL-C is now calculated using the Vin-Amber calculation, which is a validated novel method providing better accuracy than the Friedewald equation in the estimation of LDL-C. Vin SS et al. ROSE. 2013;310(19): 3445-2891 (http://education.[employer]faq/OJY380) CHOL/HDLC RATIO 2.4 <5.0 (calc) [facility] NON-HDL CHOLESTEROL 96 <130 mg/dL (calc) [facility] Comment: For patients with diabetes plus 1 major ASCVD risk factor, treating to a non-HDL-C goal of <100 mg/dL (LDL-C of <70 mg/dL) is considered a therapeutic option. Blood Blood / Unknown 11/22/2023 9 :42 AM EDT 11/22/2023 9:43 AM EDT Narrative [employer] [facility] - 11/23/2023 6:42 AM EDT FASTING:YES Ici Montreuil Zaki Hatch PharmD LAB - BLOOD DRAW Final Re sult [facility] [address] [address], [facility] [address] [address] * REFERRAL TO PODIATRY (01/22/2023 3:00 AM EST) 01/22/2023 3:00 AM EST Zaki Hatch PharmD REFERRAL Edited Re sult - Final * HEPATITIS A,B,C PANEL (08/21/2018 9:40 AM EDT) HEPATITIS B SURFACE ANTIBODY NEGATIVE NEGATIVE [facility] HEPATITIS B SURFACE ANTIGEN NEGATIVE NEGATIVE [facility] Comment: Over the counter supplements containing high doses of biotin may interfere with this assay. If interference is suspected, patients shoud be retested after refraining from biotin supplements for 72 hours. HEPATITIS C VIRUS DIAGNOSTIC NEGATIVE NEGATIVE [facility] HEPATITIS B CORE ANTIBODY NEGATIVE NEGATIVE [facility] HEPATITIS A ANTIBODY TOTAL NEGATIVE NEGATIVE [facility] Comment: Over the counter supplements containing high doses of biotin may interfere with this assay. If interference is suspected, patients shoud be retested after refraining from biotin supplements for 72 hours. Blood specimen (specimen) Blood / Unknown 08/21/2018 9:40 AM EDT 08/21/2018 9:52 AM EDT Narrative [facility] [address] Found![facility] - 08/21/2018 1:25 PM EDT [employer] [address] Strong Nitric Operator - Dalia Smith MD [place] ID [id number] ORD# [id number] Louis Forrester NP LAB - BLOOD DRAW Edited Result - Final [employer] [address], * COLONOSCOPY (05/05/2015 9:58 AM EST) Mikey Evans PA - 05/05/2015 9:58 AM EST Repeat in 10 years us Provider [place] PROCEDURES Final Result from Last 3 Months or Most Recently Relevant to Health Maintenance [place] D[place] [facility] [place] MEDICAID AETNA MEDICARE Advance Directives Healthcare Agents on File Name Relationship Healthcare Agent [facility] Communication Bianca Dominguez Relative Health Care Agent Care Teams Life Sciences Manager Relationship Specialty Start Date End Date Compa Duenas FNP [address] [place] [address] PCP - General Family Medicine, DENTAL MANAGER 01/22/20
--- OUTSIDE RECORDS SUMMARY | 2024-12-23 18:47 | XMS_ITS | Clinical Summary ---
Author Organization [facility] Address [address] [place] [phone] Phone Care Team Providers Care Scout Name Role Phone Compa Duenas NP Primary Care Provider +1- [phone] Allergies No known active allergies Medications atorvastatin [...] EDT - 10/03/2024 11:57 AM EDT Emergency [facility] Emergency [address] [place] [address] Acute exacerbation of chronic low back pain (Primary Dx); Sciatica of left side Discharge Disposition: Home or Self Care 09/25/2024 11:06 AM EDT - 09/25/2024 11:53 AM EDT [facility] Emergency [address] [place] [address] Sagar Urbano MD Acute left-sided low back [...] Stage 3a chronic kidney dise ase (CKD) ([facility] V24, [facility] V28) DX:Stage 3a chronic kidney disease (CKD) [...] Signed Date: 10/03/2024 10:17 ET Workstation ID: [id number] Transcribed By: Self Edit Transcribed Date: 10/03/2024 [...] Signed Date: 10/03/2024 10:17 ET Workstation ID: [id number] Transcribed By: Self Edit Transcribed Date: 10/03/2024 10:14 ET Thomas DUFFY IMG XR PROCEDURES Final Resu lt from Last 3 Months Insurance A[employer] MEDICARE ADVANTAGE MEDICAID - [place] Care Teams Scout Relationship Specialty Start Date End Date Compa Duenas NP [address] [place] [address] PCP - General 03/21/22
== END 2024-12-23 14:46 | disposition home or self-care (01) ==
PROVIDERS: PCP Student in an Organized Health Care Education/Training Program; Referring Provider Student in an Organized Health Care Education/Training Program; Visit Provider Nurse Practitioner Family
DX: M48.062 Spinal stenosis, lumbar region with neurogenic claudication (principal); M51.369 Other intervertebral disc degeneration, lumbar region without mention of lumbar back pain or lower extremity pain; M47.817 Spondylosis without myelopathy or radiculopathy, lumbosacral region; M25.561 Pain in right knee; G89.29 Other chronic pain; Z96.651 Presence of right artificial knee joint; M53.3 Sacrococcygeal disorders, not elsewhere classified
CPT/HCPCS: 99204

== ENCOUNTER → 2024-12-23 13:59 | Outpatient (BNVA) | payer MEDICARE, MEDICAID, SELFPAY | PROVIDERS: PCP Student in an Organized Health Care Education/Training Program; Referring Provider Student in an Organized Health Care Education/Training Program; Visit Provider Nurse Practitioner Family | DX: M47.817 Spondylosis without myelopathy or radiculopathy, lumbosacral region (principal); M48.062 Spinal stenosis, lumbar region with neurogenic claudication; M51.360 Other intervertebral disc degeneration, lumbar region with discogenic back pain only; M53.3 Sacrococcygeal disorders, not elsewhere classified; M25.561 Pain in right knee; G89.29 Other chronic pain; Z96.651 Presence of right artificial knee joint | CPT/HCPCS: 99202 ==

== ENCOUNTER 2024-12-25 07:58 | Outpatient (AMB) | payer MEDICARE, SELFPAY ==
--- OUTSIDE RECORDS SUMMARY | 2024-12-25 08:01 | XMS_ITS | Clinical Summary ---
Author Organization [facility] Address [address] [place] [phone] Phone Care Team Providers Care Rooming House Inspector Name Role Phone Compa Duenas NP Primary Care Provider +1- [phone] Allergies No known active allergies Medications atorvastatin [...] EDT - 10/03/2024 11:57 AM EDT Emergency [facility] Emergency [address] [place] [address] Acute exacerbation of chronic low back pain (Primary Dx); Sciatica of left side Discharge Disposition: Home or Self Care 09/25/2024 11:06 AM EDT - 09/25/2024 11:53 AM EDT [facility] Emergency [address] [place] [address] Sagar Urbano MD Acute left-sided low back [...] Stage 3a chronic kidney dise ase (CKD) ([facility] V24, [facility] V28) DX:Stage 3a chronic kidney disease (CKD) [...] Signed Date: 10/03/2024 10:17 ET Workstation ID: [id number] Transcribed By: Self Edit Transcribed Date: 10/03/2024 [...] Signed Date: 10/03/2024 10:17 ET Workstation ID: [id number] Transcribed By: Self Edit Transcribed Date: 10/03/2024 10:14 ET Thomas DUFFY IMG XR PROCEDURES Final Resu lt from Last 3 Months Insurance [employer] MEDICARE ADVANTAGE [place]ICAID - [place] Care Teams Rooming House Inspector Relationship Specialty Start Date End Date Compa Duenas NP [address] [place] [address] PCP - General 03/21/22
--- OUTSIDE RECORDS SUMMARY | 2024-12-25 08:01 | XMS_ITS | Clinical Summary ---
Author Organization [facility] Address [address] [place] [address] Care Team Providers Care Supervisor [employer] Name Role Phone Compa Duenas JELLY MAKER Primary Care Provider [phone] Source Comments PLEASE NOTE, if this patient [...] to test blood sugar three times daily. (Karo Internetuch Ultra 2) 1 Each 05/10/19 25 Active [...] to test blood sugar three times daily. 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 (Vitalea Science Delica 33G) 100 Each 05/10/19 25 Active [...] on 07/18/24 Arthrofibrosis right knee manipulation at [facility] on 09/12/24. Type 2 diabetes mellitus wit h diabetic polyneuropathy, with long-term current use of insulin 05/09/2024 Overview (09/23/2024): DM dx: ~[id number] per patient reports Glucometer: Iron Gaming 2 (pt denies interest in CGM) Current [...] (05/29/18) Diabetes foot exam: Referral pending to [facility] as of 09/15/24 05/21/24 at [facility] Symptoms of arthritic changes in pedal [...] of feet. Diabetes retinal exam: 11/23/23 at [facility] Mild nonproliferative diabetic retinopathy OS, no [...] of insulin 01/01/2024 Overview (09/23/2024): DM dx: ~[phone] per patient reports Glucometer: Iron Gaming 2 (pt denies interest in CGM) Current [...] (05/29/18) Diabetes foot exam: Referral pending to [facility] as of 09/15/24 05/21/24 at [facility] Symptoms of arthritic changes in pedal [...] of feet. Diabetes retinal exam: 9/20/24 at [facility] Mild nonproliferative diabetic retinopathy [...] Overview (06/29/2022): [facility] Family history of [place] (myocardial infarction) 01/2022 Overview (06/29/2022): June 2022- Cardio workup negative, continue to manage risk factors Right-sided low back pain with right-sided sciat ica 11/13/2014 Overview (12/13/2021): X-rays lumbar spine 08/09/16 @ [facility] [place] = chronic degenerative changes (disc space narrowing, anterior spurring throughout lumbar spine, facet arthritic changes L4-S1). Bilateral shoulder pain 2013 Overview (12/13/2021): December 2021: F/U [facility]; gets steroid injections regularly Essential hypertension 10/25/2012 Hyperlipidemia LDL goal <100 10/25/2012 Type 2 diabetes mellitus wit h stage 3a chronic kidney disease, with long-term current use of insulin Overview (09/23/2024): DM dx: ~[phone] per patient reports Glucometer: Vitalea Science Ultra 2 (pt denies interest in CGM) [...] (05/29/18) Diabetes foot exam: Referral pending to [facility] as of 09/15/24 05/21/24 at [facility] Symptoms of arthritic changes in pedal [...] of feet. Diabetes retinal exam: 11/23/23 at [facility] Mild nonproliferative diabetic retinopathy [...] Description 10/20/2024 4:00 PM EDT Office Visit [address] [phone] Zaki Hatch, PharmD 10/17/2024 2:00 PM EDT Office Visit [address] [phone] Omega Quick MD from Last 3 Months Immunizations Immunization Administration Dates Next Due Flu, Cell Culture based, Pre servative Free, 6m+, Flucelvax 04/22/2019,01/03/2016 Flu, Preservative Free 01/23/2023,2021,11/11/2020,10/29 HEP A-HEP B ([facility]) 11/22/2018 Hep A, adult 03/18/2019 Hep B, Adult/Adol ([id number]-[id number]/RECOMBIVAX-ADULT) 06/28/2018,05/29/2018 Influenza (FLUZONE), high-do se, trivalent, PF 11/09/2023 PNEUMOCOCCAL CONJUGATE PCV 13 05/29/2018 PNEUMOCOCCAL POLYSACCHARIDE PPV23 (Pneumovax 23) 03/18/2019 Pfizer-SEJENT COVID-19 Vac cine Bivalent, (CABELLO PFIZER-BIONTECH COVID-19 [...] - PCV20 or PCV21) 03/18/2024 03/18/2019, 05/29/2018 [id number] ( season) 2024 03/17/2022, 02/02/2021, 07/16/2020, Additional [...] disease, with long-term current use of insulin ([facility]) Type 2 diabetes mellitus with diabetic polyneuropathy, with long-term current use of insulin (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) HEMOGLOBIN GLYCOSYLATED A1C Routine 09/15/2024 4:45 PM EDT Type 2 diabetes mellitus with diabetic polyneuropathy, with long-term current use of insulin (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, with long-term current use of insulin ([facility]) Essential hypertension MICROALBUMIN/CREATIN INE RATIO, URINE, RANDOM Routine 02/08/2024 10:32 AM EST Type 2 diabetes mellitus with stage 3a chronic kidney disease, with long-term current use of insulin ([facility]) 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 11/25/2024 3:00 AM EDT Compa Duenas JELLY MAKER SCAN REFERRAL Final Res ult * (ABNORMAL) GLUCOSE, BLOOD BY GLUCOSE MONITORING DEVICE (CLIA WAIVED)POCT Routine (10/20/2024 4:22 PM EDT) GLUCOSE 161(A) 70 - 100 mg/dL [facility]- BACK OFFICE POCT Capillary Blood Blood / Unknown 4:22 PM EDT Zaki Hatch PharmD LAB - BLOOD DRAW Final Re sult [facility]- BACK OFFICE POCT * (ABNORMAL) HEMOGLOBIN GLYCOSYLATED A1C Routine (09/15/2024 4:45 PM EDT) HEMOGLOBIN A1C 7.7(H) <5.7 % [facility] Comment: For someone without known diabetes, a [...] PM EDT 09/15/2024 4:45 PM EDT Narrative [employer] - 09/16/2024 7:02 AM EDT FASTING:NO Compa Duenas JELLY MAKER LAB - BLOOD DRAW Final Re sult [employer] [address] [address], [facility] [address] [place] [address] * (ABNORMAL) COMPREHENSIVE METABOLIC PANEL (04/05/2024 9:58 AM EST) Pathologist [facility] GLUCOSE 123(H) 65 - 99 mg/dL [facility] Comment: Fasting reference interval For someone without known diabetes, a glucose value between 100 and 125 mg/dL is consistent with prediabetes and should be confirmed with a follow-up test. UREA NITROGEN (BUN) 20 7 - 25 mg/dL [facility] CREATININE (blood) 0.95 0.70 - 1.35 mg/dL [facility] EGFR 89 > OR = 60 mL/min/1. 73m2 [facility] BUN/CREATININE RATIO SEE NOTE: [facility] Comment: Not Reported: BUN and Creatinine are within reference range. SODIUM 140 135 - 146 mmol/L [facility] POTASSIUM 4.9 3.5 - 5.3 mmol/L [facility] CHLORIDE 104 98 - 110 mmol/L [facility] CARBON DIOXIDE 28 20 - 32 mmol/L [facility] CALCIUM 10.0 8.6 - 10.3 mg/dL [facility] PROTEIN, TOTAL 6.7 6.1 - 8.1 g/dL [facility] ALBUMIN 4.6 3.6 - 5.1 g/dL [facility] GLOBULIN 2.1 1.9 - 3.7 g/dL (calc) [facility] ALBUMIN/GLOBULI N RATIO 2.2 1.0 - 2.5 (calc) [facility] BILIRUBIN, TOTAL 0.6 0.2 - 1.2 mg/dL [facility] ALKALINE PHOSPHATASE 97 35 - 144 U/L [facility] AST 17 10 - 35 U/L [facility] ALT 29 9 - 46 U/L [facility] Blood Blood / Unknown 04/05/2024 9 :58 AM EST 04/05/2024 9:58 AM EST Narrative [facility] - 04/06/2024 5:17 AM EST FASTING:YES [employer] Bill.Forward PharmD LAB - BLOOD DRAW Final Re sult [facility] [address] [address], [facility] [address] [address] * MICROALBUMIN/CREATININE RATIO, URINE, RANDOM (02/08/2024 10:32 AM EST) CREATININE, RANDOM URINE 122 20 - 320 mg/dL [facility] MICROALBUMIN 1.5 mg/dL [employer] [facility] [employer] [facility] Comment: Reference Range Not established MICROALBUMIN/CREA TININE RATIO, RANDOM URINE 12 <30 mg/g creat [facility] Comment: The ADA defines abnormalities in [...] PharmD LAB URINE AMBULATORY Lyndsay l Result [facility] [address] [address], [facility] [address] [place] [address] * REFERRAL FOR DIABETIC RETINAL EXAM (11/23/2023 3:00 AM EDT) 11/23/2023 3:00 AM EDT [employer]Ad Zaki Hatch PharmD REFERRAL Edited Re sult - Final * LIPID PANEL (11/22/2023 9:42 AM EDT) CHOLESTEROL, TOTAL 166 <200 mg/dL [facility] HDL CHOLESTEROL 70 > OR = 40 mg/dL [facility] TRIGLYCERIDES 109 <150 mg/dL [facility] LDL-CHOLESTEROL 77 99 mg/dL (calc) [facility] Comment: Reference range: <100 Desirable range <100 mg/dL for primary prevention; <70 mg/dL for patients with CHD or diabetic patients with > or = 2 CHD risk factors. LDL-C is now calculated using the Vin-Amber calculation, which is a validated novel method providing better accuracy than the Friedewald equation in the estimation of LDL-C. Vin SS et al. ROSE. 2013;310(19): 1679-7893 (http://education.Kaminario/faq/BIR578) CHOL/HDLC RATIO 2.4 <5.0 (calc) [facility] NON-HDL CHOLESTEROL 96 <130 mg/dL (calc) [facility] Comment: For patients with diabetes plus 1 major ASCVD risk factor, treating to a non-HDL-C goal of <100 mg/dL (LDL-C of <70 mg/dL) is considered a therapeutic option. Blood Blood / Unknown 11/22/2023 9 :42 AM EDT 11/22/2023 9:43 AM EDT Narrative [employer] [facility] - 11/23/2023 6:42 AM EDT FASTING:YES xAd Zaki Hatch PharmD LAB - BLOOD DRAW Final Re sult [facility] [address] [address], [facility] [address] [address] * REFERRAL TO PODIATRY (01/22/2023 3:00 AM EST) 01/22/2023 3:00 AM EST Zaki Hatch PharmD REFERRAL Edited Re sult - Final * HEPATITIS A,B,C PANEL (08/21/2018 9:40 AM EDT) HEPATITIS B SURFACE ANTIBODY NEGATIVE NEGATIVE [facility] HEPATITIS B SURFACE ANTIGEN NEGATIVE NEGATIVE [facility] Comment: Over the counter supplements containing high doses of biotin may interfere with this assay. If interference is suspected, patients shoud be retested after refraining from biotin supplements for 72 hours. HEPATITIS C VIRUS DIAGNOSTIC NEGATIVE NEGATIVE [facility] HEPATITIS B CORE ANTIBODY NEGATIVE NEGATIVE [facility] HEPATITIS A ANTIBODY TOTAL NEGATIVE NEGATIVE [facility] Comment: Over the counter supplements containing high doses of biotin may interfere with this assay. If interference is suspected, patients shoud be retested after refraining from biotin supplements for 72 hours. Blood specimen (specimen) Blood / Unknown 08/21/2018 9:40 AM EDT 08/21/2018 9:52 AM EDT Narrative [facility] - 08/21/2018 1:25 PM EDT [employer] [address] Manager Of Drilling - Dalia Smith MD PT ID [id number] ORD# [id number] Louis Forrester NP LAB - BLOOD DRAW Edited Result - Final [id number] [address], * COLONOSCOPY (05/05/2015 9:58 AM EST) Mikey Evans PA - 05/05/2015 9:58 AM EST Repeat in 10 years us Provider [facility] PROCEDURES Final Result from Last 3 Months or Most Recently Relevant to Health Maintenance Insurance [place] D[place] [facility] [place]AL [place] AETNA MEDICARE Advance Directives Healthcare Agents on File Name Relationship Healthcare Agent [facility] Communication Bianca Dominguez Relative Health Care Agent Care Teams Supervisor [employer] Relationship Specialty Start Date End Date Compa Duenas FNP [address] [place] [address] PCP - General Family Medicine, CONSTRUCTION TEACHER 01/22/20
[2024-12-25 08:10] VITALS: BMI 32.4
--- NOTE | 2024-12-25 08:10 | A.OFFVIS_ITS ---
Vital Signs 12/25/24 08:10 Height 5 ft 6.5 in Weight 204 lb BMI 32.4 Intake Visit Reasons: fu Type II diabetes Intake Note: Nish is a 64 year old female who presents today for a follow up on his Diabetic foot eval. Patient states he wasn't unable to receive his diabetic shoes as of yet and he was unable to get his X-rays done. Patient reports he has no concerns in regards to his feet however he notes occasional bilateral foot pain on the plantar aspect of his feet and when the pain comes he applies pain relief cream and this helps significantly. Allergies No Known Allergies Allergy (Verified 12/25/24 08:17) HPI HPI fu Type II diabetes: Details: 64-year-old male with past medical history of diabetes mellitus type 2 on insulin, GERD, lumbar radiculopathy with sciatica to the left lower extremity, status post right TKA, and obesity who returns for bilateral forefoot pain and diabetic shoes. He was unable to get the custom shoes due to having issues with the orthotics company. He states that his forefoot pain is mostly improving, still has a left forefoot numbness worst at night. He has been applying capsaicin ointment twice a day. He states he is also scheduled for spine surgery/discectomy. History: He states the pain has been present for over 1 year. He describes it as a burning and tingling sensation to the ball was foot over both feet, and wraps around the top of his foot to the right foot. The symptoms are worse during the nighttime. He finds relief when he takes muscle relaxants and when he rubs topical medication onto his feet. He also notices symptoms worsen when he is wearing tight shoe wear, and improves with open toe shoe wear. [facility] Medical History Insulin dependent type 2 diabetes mellitus Hypertension GERD (gastroesophageal reflux disease) Obesity, Class I, BMI 30-34.9 Osteoarthritis of right knee Surgical History History of arthroplasty of right knee Family History Father Heart attack Mother Heart attack Social History (Reviewed 12/24/24 @ 17:02 by TUCKER Tineo Housing: Apartment Alcohol intake: current Alcohol intake frequency: does not drink Patient Tobacco Use Status: Never used Tobacco service: No Current occupational status: disabled Cognitive needs: Yes (cane and walker) Hearing needs: No Vision needs: Yes (reading glasses) Physical Exam Vital Signs: BMI result Body Mass Index 32.4 Extrem Other: *Bilateral Lower Extremity Focused Diabetic Foot Exam Vascular: DP/PT 1/4 bilaterally, CFT<3s to digits, TG warm to cool, no pedal edema, pedal hair present Derm: Skin: No open lesions, ulcerations. Patient has a left foot plantar sub 1st metatarsal head hyperkeratotic lesion. Interdigital spaces: Clear, no maceration or fungal infection. Nails: No onychomycosis, paronychia, or ingrown nails. Neuro: Unity-batsheva monofilament (10g) test 10/10 intact to right foot, 10/10 intact to left foot. Msk: No tenderness on palpation of the plantar forefoot bilaterally Deformities: No evidence of hammertoes, bunions, Charcot changes, or other structural abnormalities patient has a cavus foot type.. Muscle strength: 5/5 in all muscle groups. Gait: Normal, no antalgic or steppage gait observed. Footwear Assessment: Shoes inspected; appropriate fit, no excessive wear, or foreign objects noted. Assessment & Plan Assessment & Plan (1) Insulin dependent type 2 diabetes mellitus: Code(s): E11.9 - Type 2 diabetes mellitus without complications; Z79.4 - [facility] (current) use of insulin Category: Medical Plan: Risk Stratification: No current ulceration, infection, or pre-ulcerative lesion. No loss of protective sensation or peripheral arterial disease. No plans for further testing/referrals for non-invasive vascular studies. Patient is at low risk for diabetic foot complications at this time. Recommendations: Continue routine foot care and daily self-inspection. Recommend moisturizing daily. Recommend supportive proper fitting shoe-wear. The patient may require diabetic shoes in the future. Reinforced diabetic foot education and risks from peripheral neuropathy. (2) Peripheral neuropathy: Code(s): G62.9 - Polyneuropathy, unspecified Category: Medical Qualifiers: Peripheral neuropathy type: polyneuropathy, other Qualified Code(s): G62.89 - Other specified polyneuropathies Plan: * Discussed differential diagnosis which includes peripheral neuropathy from diabetes, radiculopathy, and forefoot metatarsalgia. * Continue Capsaicin ointment. * Patient states he is planned for spinal surgery which may help alleviate his neuropathy symptoms. (3) Metatarsalgia of both feet: Code(s): M77.41 - Metatarsalgia, right foot; M77.42 - Metatarsalgia, left foot Category: Medical Plan: * Rx Diabetic shoes * Ordered x-ray last visit, which patient has not yet obtained. * Follow up in 1 month for shoes check. Coding Level of Care Code Est Pt Level 3 (56653) Diagnoses Insulin dependent type 2 diabetes mellitus E11.9; Z79.4 Other polyneuropathy G62.89 Peripheral neuropathy type: polyneuropathy, other Metatarsalgia of both feet M77.41; M77.42 Time Spent (min) 30
== END 2024-12-25 08:32 | disposition home or self-care (01) ==
LOC: HO.HPODS 07:59
PROVIDERS: PCP Student in an Organized Health Care Education/Training Program; Visit Provider Student in an Organized Health Care Education/Training Program
DX: E11.9 Type 2 diabetes mellitus without complications (principal); Z79.4 Long term (current) use of insulin; G62.89 Other specified polyneuropathies; M77.41 Metatarsalgia, right foot; M77.42 Metatarsalgia, left foot
CPT/HCPCS: 99213

== ENCOUNTER → 2024-12-25 07:58 | Outpatient (BNVA) | payer MEDICARE, SELFPAY | PROVIDERS: PCP Student in an Organized Health Care Education/Training Program; Visit Provider Student in an Organized Health Care Education/Training Program | DX: E11.9 Type 2 diabetes mellitus without complications (principal); Z79.4 Long term (current) use of insulin; G62.89 Other specified polyneuropathies; M77.41 Metatarsalgia, right foot; M77.42 Metatarsalgia, left foot | CPT/HCPCS: 99212 ==

== ENCOUNTER 2025-01-02 09:15 | Outpatient (AMB) | payer MEDICARE, SELFPAY ==
[2025-01-02 09:17] VITALS: BP 120/80; PULSE 98; RESP 16; TEMP 36.6; O2SAT 96; BMI 31.7
--- NOTE | 2025-01-02 09:17 | A.OFFPC_ITS ---
Vital Signs 01/02/25 09:17 Height 5 ft 6.5 in Weight 199 lb 8 oz BMI 31.7 BP 120/80 Blood Pressure Location Lt brachial Position Sitting Respiration 16 Pulse 98 Pulse Source Pulse Oximeter Temp 97.8 F Temp Source Oral Pulse Oximetry (%) 96 Oxygen Delivery Method Room Air Intake Visit Reasons: 2 week follow up Organic Chemist Required: No Accompanied by: Self / Same As Patient Allergies No Known Allergies Allergy (Verified 01/02/25 09:23) Medication List - Last Reconciled 01/02/25 by Primo Blanchard MD acetaminophen ER 650 mg PO Q12H alcohol swabs (Alcohol Prep Pads) pad topical TID atorvastatin 40 mg PO DAILY baclofen 10 mg PO TID blood pressure monitor As directed blood sugar diagnostic ([employer] TVuch Ultra Test strips) As directed blood-glucose meter ([employer] TVuch Ultra2 Meter) As directed capsaicin 0.1% (Arthritis Pain Relief (capsaicin)) 1 appl topical TID celecoxib (Celebrex) 200 mg PO BID PRN 30 days [Diabetic shoes Please dispense diabetic shoes with 3 pairs of custom molded inserts.] gabapentin 300 mg PO TID insulin glargine (Lantus Solostar U-100 Insulin) 54 units (0.54 mL) subcut BEDTIME insulin lispro (Admelog SoloStar U-100 Insulin lispro) 1 sliding scale dose subcut USEASDIRECTD lancets ([employer] Delica Plus Lancet) As directed lisinopril 20 mg PO DAILY pen needle, diabetic (Ultra-Fine Pen Needle) As directed semaglutide (Ozempic) 2 mg subcut QWEEK Tobacco use date assessed: 12/19/24 Fall risk assessment: 1 Fall in past year Last assessed Fall Risk: 11/06/24 Dental Screening Dental Screen Date: 12/19/24 Did you have a dental visit in the last 12 months?: Yes Did you have a dental problem in the last 6 months where you did not have access to dental care?: No Was dental information given to patient?: Patient has dentist HPI HPI Comments History of Present Illness Details History of Present Illness The patient is a 64-year-old male presenting for a follow-up visit for blood pressure. Social History: - The patient reports traveling alone an d is contemplating finding a partner. Diagnostic Results: - An MRI was discussed 1. Severe multilevel lumbar spondylosis superimposed upon a congenitally narrow central canal. Associated multilevel dorsal epidural lipomatosis. There is severe central canal stenosis present at L2-3 and L3-4. There is moderate central canal stenosis at L4-5. 2. Severe left neural foraminal narrowin g at L3-4, severe right neural foraminal narrowing at L4-5, and severe bilateral neural foraminal impingement at L5-S1. 3. There has been a prior right hemilami notomy and medial facetectomy with microdiscectomy at L4-5. Past Medical History - The patient reports having a previous physician for nearly 20 years who did not order any diagnostic checks. Health Maintenance - Follow-up scheduled for the beginning of February. - The patient was advised to return soon er if any issues arise before the scheduled follow-up. [facility] Medical History Insulin dependent type 2 diabetes mellitus Hypertension GERD (gastroesophageal reflux disease) Obesity, Class I, BMI 30-34.9 Osteoarthritis of right knee Surgical History History of arthroplasty of right knee Family History Father Heart attack Mother Heart attack Social History Housing: Apartment Alcohol intake: current Alcohol intake frequency: does not drink Patient Tobacco Use Status: Never used Tobacco service: No Current occupational status: disabled Cognitive needs: Yes (cane and walker) Hearing needs: No Vision needs: Yes (reading glasses) Questionnaire Thrive Questionnaire Date Thrive assessed: 11/20/24 I am a: Patient What is your living situation today?: I have a steady place to live Within the past 12 months, did the food you bought not last and you didn't have the money to get more?: Sometimes True Within the past 12 months, did you worry whether your food would run out before you got money to buy more?: Sometimes True Do you have trouble paying for medicines?: No Do you have trouble getting transportation to medical appointments?: No Do you have trouble paying your heating and electricity bill?: No Do you have trouble taking care of your child, family member or friend?: No Are you currently unemployed and looking for a job?: No Are you interested in more education?: No Please select the resources that you would like help with: None Currently or been in a relationship where the following occur: I choose not to answer THRIVE Score: 2 MOHAMUD-7 AMB Questionnaire MOHAMUD-7 Date MOHAMUD - 7 assessed: 12/19/24 Source: Developed by Drs. Anand Negron, Heidi Capps, Ugo Rankin and colleagues, with an educational rogelio from [employer]. Review of Systems Narrative Review of Systems 10-point ROS reviewed and negative except as noted in HPI Physical exam (Primary Care) Vital Signs: Last Vital Signs Temp 97.8 F 01/02/25 09:17 Pulse 98 01/02/25 09:17 Resp 16 01/02/25 09:17 BP 120/80 01/02/25 09:17 Pulse Ox 96 01/02/25 09:17 Oxygen Delivery Method Room Air 01/02/25 09:17 BMI result Body Mass Index 31.7 Tobacco/Smoking Status: Tobacco use Status Tobacco use date assessed 12/19/24 01/02/25 09:26 Patient Tobacco Use Status Never used Tobacco 01/02/25 09:26 Thrive Assessment: Date of Thrive Assessment Date Thrive assessed 11/20/24 01/02/25 09:26 Currently or been in a relationship where the following occur: I choose not to answer Narrative Physical Exam General: Well-appearing, in no acute distress. Vital signs: Pressure is good, weight is better. HEENT: Normocephalic, atraumatic. PERRLA, EOMI. Conjunctiva clear, sclera anicteric. Oropharynx clear, mucous membranes moist. TMs intact bilaterally. Neck: Supple, no lymphadenopathy, no thyromegaly, no JVD or carotid bruits. Cardiovascular: RRR, normal S1/S2, no murmurs, rubs, or gallops. Peripheral pulses 2+ and symmetric. No edema. Respiratory: Lungs clear to auscultation bilaterally, no wheezes, rales, or rhonchi. Normal effort. Abdomen: Soft, non-tender, non-distended. Normoactive bowel sounds. No hepatosplenomegaly, no masses. MSK: Full range of motion, no joint swelling or deformity. Normal gait. Skin: Warm, dry, intact. No rashes, lesions, or pallor. Neuro: Alert and oriented x3. Cranial nerves II-XII intact. Strength 5/5 throughout. Sensation intact. Reflexes 2+ symmetric. Normal coordination and gait. Psych: Appropriate mood and affect. Normal judgment and insight. Coding Level of Care Code Est Pt Level 3 (63882) Diagnoses Hypertension I10 Insulin dependent type 2 diabetes mellitus E11.9; Z79.4 Obesity, Class I, BMI 30-34.9 E66.811 Chronic knee pain after total replacement of right knee joint M25.561; G89.29; Z96.651 Sacroiliac joint pain M53.3 Spinal stenosis, lumbar region with neurogenic claudication M48.062 Lumbar degenerative disc disease M51.36 Lumbosacral spondylosis M47.817 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 Assessment & Plan Assessment & Plan (1) Hypertension: Code(s): I10 - Essential (primary) hypertension Category: Medical (2) Insulin dependent type 2 diabetes mellitus: Code(s): E11.9 - Type 2 diabetes mellitus without complications; Z79.4 - termite treater (current) use of insulin Category: Medical (3) Obesity, Class I, BMI 30-34.9: Code(s): E66.811 - Obesity, class 1 Category: Medical (4) Chronic knee pain after total replacement of right knee joint: Code(s): M25.561 - Pain in right knee; G89.29 - Other chronic pain; Z96.651 - Presence of right artificial knee joint Category: Medical (5) Sacroiliac joint pain: Code(s): M53.3 - Sacrococcygeal disorders, not elsewhere classified Category: Medical (6) Spinal stenosis, lumbar region with neurogenic claudication: Code(s): M48.062 - Spinal stenosis, lumbar region with neurogenic claudication Category: Medical (7) Lumbar degenerative disc disease: Code(s): M51.36 - Other intervertebral disc degeneration, lumbar region Category: Medical (8) Lumbosacral spondylosis: Code(s): M47.817 - Spondylosis without myelopathy or radiculopathy, lumbosacral region Category: Medical (9) 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: Code(s): M53.87 - Other specified dorsopathies, lumbosacral region Category: Medical Plan Consent Patient was informed and verbally consented to the use of an ambient scribe for clinic note documentation during this visit. Plan 1. hypertension logs are consistent with better control will continue current dose of medication 2. Pain in right knee M25.561 3. lumbar degenerative disc disease 4. spinal stenosis, lumbar region with neurogenic claudication 5. Spondylosis without myelopathy or radiculopathy, lumbosacral region M47.817 Discussion Notes I reviewed with the patient that his blood pressure is well-controlled and his weight has improved. We scheduled a follow-up appointment for the beginning of February, and I advised him he could return sooner if any concerns arise in the interim. follow up with pain mgmt and neurosurgery for further mgmt Patient Instructions - Your blood pressure is good and your weight has improved. - Please come back for a follow-up visit at the beginning of February. - If anything happens or you have new concerns before your next appointment, please come in to be seen. Medical Decision Making The patient is a 64-year-old male presenting for a routine follow-up. His blood pressure is well-controlled and he has had improvement in his weight. Given his stability, the plan is to continue current management and re-evaluate at a follow-up visit in early February. The patient was also advised to return sooner if any issues arise. Total time spent caring for the patient today was 20 minutes. This includes time spent before the visit reviewing the chart, time spent documenting, and time spent reviewing laboratory results, diagnostic imaging, medications, performing a medically necessary evaluation, counseling on diagnoses, care coordination, ordering appropriate tests, ordering appropriate medications, review of tests performed by other providers, reporting test results with the patient.
--- OUTSIDE RECORDS SUMMARY | 2025-01-02 10:13 | XMS_ITS | Clinical Summary ---
Author Organization [facility] Address [address] [place] [address] Care Team Providers Care Vp Transportation Name Role Phone Compa Duenas CYBER SECURITY INSTRUCTOR Primary Care Provider [phone] [phone] Source Comments PLEASE NOTE, if this patient [...] to test blood sugar three times daily. (Niveus Medicaluch Ultra 2) 1 Each 05/10/19 25 Active [...] to test blood sugar three times daily. 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 (SpiritShop.com Delica 33G) 100 Each 05/10/19 25 Active [...] on 07/18/24 Arthrofibrosis right knee manipulation at [facility] on 09/12/24. Type 2 diabetes mellitus wit h diabetic polyneuropathy, with long-term current use of insulin 05/09/2024 Overview (09/23/2024): DM dx: ~[phone] per patient reports Glucometer: AltheaDx 2 (pt denies interest in CGM) Current [...] (05/29/18) Diabetes foot exam: Referral pending to [facility] as of 09/15/24 05/21/24 at [facility] Symptoms of arthritic changes in pedal [...] of feet. Diabetes retinal exam: 11/23/23 at [facility] Mild nonproliferative diabetic retinopathy OS, no macular [...] of insulin 01/01/2024 Overview (09/23/2024): DM dx: ~[phone] per patient reports Glucometer: AltheaDx 2 (pt denies interest in CGM) Current [...] (05/29/18) Diabetes foot exam: Referral pending to [facility] as of 09/15/24 05/21/24 at [facility] Symptoms of arthritic changes in pedal [...] of feet. Diabetes retinal exam: 9/20/24 at [facility] Mild nonproliferative diabetic retinopathy [...] Overview (06/29/2022): [facility] Family history of SD (myocardial infarction) 01/2022 Overview (06/29/2022): June 2022- Cardio workup negative, continue to manage risk factors Right-sided low back pain with right-sided sciat ica 11/13/2014 Overview (12/13/2021): X-rays lumbar spine 08/09/16 @ [facility] = chronic degenerative changes (disc space narrowing, anterior spurring throughout lumbar spine, facet arthritic changes L4-S1). Bilateral shoulder pain 2013 Overview (12/13/2021): December 2021: F/U [facility]; gets steroid injections regularly Essential hypertension 10/25/2012 Hyperlipidemia LDL goal <100 10/25/2012 Type 2 diabetes mellitus wit h stage 3a chronic kidney disease, with long-term current use of insulin Overview (09/23/2024): DM dx: ~[phone] per patient reports Glucometer: SpiritShop.com Ultra 2 (pt denies interest in CGM) [...] (05/29/18) Diabetes foot exam: Referral pending to [facility] as of 09/15/24 05/21/24 at [facility] Symptoms of arthritic changes in pedal [...] of feet. Diabetes retinal exam: 11/23/23 at [facility] Mild nonproliferative diabetic retinopathy [...] Description 10/20/2024 4:00 PM EDT Office Visit [address] [phone] Zaki Hatch, PharmD 10/17/2024 2:00 PM EDT Office Visit [address] [phone] Omega Quick MD from Last 3 Months Immunizations Immunization Administration Dates Next Due Flu, Cell Culture based, Pre servative Free, 6m+, Flucelvax 04/22/2019,01/03/2016 Flu, Preservative Free 01/23/2023,2021,11/11/2020,10/29 HEP A-HEP B ([place]) 11/22/2018 Hep A, adult 03/18/2019 Hep B, Adult/Adol (TYEYFIL-J-XCQPV/RECOMBIVAX-ADULT) 06/28/2018,05/29/2018 Influenza (FLUZONE), high-do se, trivalent, PF 11/09/2023 PNEUMOCOCCAL CONJUGATE PCV 13 05/29/2018 PNEUMOCOCCAL POLYSACCHARIDE PPV23 (Pneumovax 23) 03/18/2019 Pfizer-WISETIVI COVID-19 Vac cine Bivalent, (CABELLO PFIZER-BIONTECH COVID-19 [...] - PCV20 or PCV21) 03/18/2024 03/18/2019, 05/29/2018 Ruf-GBLML-99 ( season) 2024 03/17/2022, 02/02/2021, 07/16/2020, Additional [...] Date/Time Associated Diagnosis Comments REFERRAL SCANNED DOCUMENT 12/25/2024 3:00 AM EDT REFERRAL SCANNED DOCUMENT 11/25/2024 3:00 AM EDT REFERRAL SCANNED DOCUMENT 11/24/2024 3:00 AM EDT REFERRAL SCANNED DOCUMENT 10/22/2024 3:00 AM EDT GLUCOSE, BLOOD BY GLUCOSE MONITORING DEVICE (CLIA WAIVED)POCT Routine 10/20/2024 4:22 PM EDT Type 2 diabetes mellitus with stage 3a chronic kidney disease, with long-term current use of insulin ([facility] Type 2 diabetes mellitus with diabetic polyneuropathy, with long-term current use of insulin ([facility]) 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, with long-term current use of insulin ([facility]) HEMOGLOBIN GLYCOSYLATED A1C Routine 09/15/2024 4:45 PM EDT Type 2 diabetes mellitus with diabetic polyneuropathy, with long-term current use of insulin ([facility]) COMPREHENSIVE METABOLIC PANEL Routine 04/05/2024 9:58 AM EST Type 2 diabetes mellitus with stage 3a chronic kidney disease, with long-term current use of insulin ([facility]) 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, with long-term current use of insulin ([facility]) Essential hypertension MICROALBUMIN/CREATIN INE RATIO, URINE, RANDOM Routine 02/08/2024 10:32 AM EST Type 2 diabetes mellitus with stage 3a chronic kidney disease, with long-term current use of insulin ([facility]) 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, with long-term current use of insulin ([facility]) REFERRAL TO DIABETIC RETINAL EXAM Routine 11/23/2023 3:00 AM EDT Type 2 diabetes mellitus with stage 3a chronic kidney disease, with long-term current use of insulin ([facility]) LIPID PANEL Routine 11/22/2023 9:42 AM EDT Type 2 diabetes mellitus with stage 3a chronic kidney disease, with long-term current use of insulin ([facility]) Hyperlipidemia LDL goal <100 REFERRAL TO PODIATRY Routine 01/22/2023 3:00 AM EST Type 2 diabetes mellitus with stage 3a chronic kidney disease, with long-term current use of insulin (HCC-CMS) BITEWINGS - FOUR RADIOGRAPHIC IMAGES Routine 07/24/2022 [...] Health Maintenance Results * REFERRAL SCANNED DOCUMENT (12/25/2024 3:00 AM EDT) Only the most recent of4 resultswithin the time period is included. 12/25/2024 3:00 AM EDT Compa Duenas CYBER SECURITY INSTRUCTOR SCAN REFERRAL Final Res ult * (ABNORMAL) GLUCOSE, BLOOD BY GLUCOSE MONITORING DEVICE (CLIA WAIVED)POCT Routine (10/20/2024 4:22 PM EDT) GLUCOSE 161(A) 70 - 100 mg/dL [facility] POCT Capillary Blood Blood / Unknown 4:22 PM EDT Zaki Hatch PharmD LAB - BLOOD DRAW Final Re sult [facility] POCT * (ABNORMAL) HEMOGLOBIN GLYCOSYLATED A1C Routine (09/15/2024 4:45 PM EDT) HEMOGLOBIN A1C 7.7(H) <5.7 % [facility] (roll.to) Comment: For someone without known diabetes, a [...] PM EDT 09/15/2024 4:45 PM EDT Narrative [facility] - 09/16/2024 7:02 AM EDT FASTING:NO Compa Duenas CYBER SECURITY INSTRUCTOR LAB - BLOOD DRAW Final Re sult [facility] [address] [place] [id number], [facility] (roll.to) [address] [place] [phone] * (ABNORMAL) COMPREHENSIVE METABOLIC PANEL (04/05/2024 9:58 AM EST) Pathologist [facility] GLUCOSE 123(H) 65 - 99 mg/dL [facility] (roll.to) Comment: Fasting reference interval For someone without known diabetes, a glucose value between 100 and 125 mg/dL is consistent with prediabetes and should be confirmed with a follow-up test. UREA NITROGEN (BUN) 20 7 - 25 mg/dL [facility] (roll[facility]to) CREATININE (blood) 0.95 0.70 - 1.35 mg/dL [facility] (roll.to) EGFR 89 > OR = 60 mL/min/1. 73m2 [facility] (roll[facility]to) BUN/CREATININE RATIO SEE NOTE: [facility] (roll[facility]to) Comment: Not Reported: BUN and Creatinine are within reference range. SODIUM 140 135 - 146 mmol/L [facility] (roll[facility]to) POTASSIUM 4.9 3.5 - 5.3 mmol/L [facility] (roll[facility]to) CHLORIDE 104 98 - 110 mmol/L [facility] (roll.to) CARBON DIOXIDE 28 20 - 32 mmol/L [facility] (roll.to) CALCIUM 10.0 8.6 - 10.3 mg/dL [facility] PROTEIN, TOTAL 6.7 6.1 - 8.1 g/dL [facility] ALBUMIN 4.6 3.6 - 5.1 g/dL [facility] GLOBULIN 2.1 1.9 - 3.7 g/dL (calc) [facility] ALBUMIN/GLOBULI N RATIO 2.2 1.0 - 2.5 (calc) [facility] BILIRUBIN, TOTAL 0.6 0.2 - 1.2 mg/dL [facility] ALKALINE PHOSPHATASE 97 35 - 144 U/L [facility] AST 17 10 - 35 U/L [facility] ALT 29 9 - 46 U/L [facility] Blood Blood / Unknown 04/05/2024 9 :58 AM EST 04/05/2024 9:58 AM EST Narrative [facility] [employer] [facility] - 04/06/2024 5:17 AM EST FASTING:YES Zaki Hatch PharmD LAB - BLOOD DRAW Final Re sult [facility] [employer] [address] [address], [facility] [address] [phone] * MICROALBUMIN/CREATININE RATIO, URINE, RANDOM (02/08/2024 10:32 AM EST) CREATININE, RANDOM URINE 122 20 - 320 mg/dL [facility] MICROALBUMIN 1.5 mg/dL [facility] [employer] Comment: Reference Range Not established MICROALBUMIN/CREA TININE RATIO, RANDOM URINE 12 <30 mg/g creat [facility] Comment: The ADA defines abnormalities in albumin [...] 10:32 AM EST 02/08/2024 10:32 AM EST [employer] Zaki Luciais PharmD LAB URINE AMBULATORY Lyndsay l Result [facility] [address] [address], [employer] [facility] [address] [place] [address] * REFERRAL FOR DIABETIC RETINAL EXAM (11/23/2023 3:00 AM EDT) 11/23/2023 3:00 AM EDT [employer] Zaki Luciais PharmD REFERRAL Edited Re sult - Final * LIPID PANEL (11/22/2023 9:42 AM EDT) CHOLESTEROL, TOTAL 166 <200 mg/dL [facility] HDL CHOLESTEROL 70 > OR = 40 mg/dL [facility] TRIGLYCERIDES 109 <150 mg/dL [facility] LDL-CHOLESTEROL 77 99 mg/dL (calc) [facility] Comment: Reference range: <100 Desirable range <100 mg/dL for primary prevention; <70 mg/dL for patients with CHD or diabetic patients with > or = 2 CHD risk factors. LDL-C is now calculated using the Vin-Amber calculation, which is a validated novel method providing better accuracy than the Friedewald equation in the estimation of LDL-C. Vin NOVOA et al. ROSE. 2013;310(19): 2917-9090 (http://education.StoreFront.net.Toro Development/faq/UBR417) CHOL/HDLC RATIO 2.4 <5.0 (calc) [facility] NON-HDL CHOLESTEROL 96 <130 mg/dL (calc) [facility] (roll[facility]to) Comment: For patients with diabetes plus 1 major ASCVD risk factor, treating to a non-HDL-C goal of <100 mg/dL (LDL-C of <70 mg/dL) is considered a therapeutic option. Blood Blood / Unknown 11/22/2023 9 :42 AM EDT 11/22/2023 9:43 AM EDT Narrative [facility] - 11/23/2023 6:42 AM EDT FASTING:YES Zaki Hatch PharmD LAB - BLOOD DRAW Final Re sult Performing Organization Address City/[facility]/ZIP Co de Phone Number [facility] [address] [address], [facility] [address] [place] [address] * REFERRAL TO PODIATRY (01/22/2023 3:00 AM EST) 01/22/2023 3:00 AM EST Zaki Luciais PharmD REFERRAL Edited Re sult - Final * HEPATITIS A,B,C PANEL (08/21/2018 9:40 AM EDT) HEPATITIS B SURFACE ANTIBODY NEGATIVE NEGATIVE [facility] HEPATITIS B SURFACE ANTIGEN NEGATIVE NEGATIVE [facility] Comment: Over the counter supplements containing high doses of biotin may interfere with this assay. If interference is suspected, patients shoud be retested after refraining from biotin supplements for 72 hours. HEPATITIS C VIRUS DIAGNOSTIC NEGATIVE NEGATIVE [facility] HEPATITIS B CORE ANTIBODY NEGATIVE NEGATIVE [facility] HEPATITIS A ANTIBODY TOTAL NEGATIVE NEGATIVE [facility] Comment: Over the counter supplements containing high doses of biotin may interfere with this assay. If interference is suspected, patients shoud be retested after refraining from biotin supplements for 72 hours. Blood specimen (specimen) Blood / Unknown 08/21/2018 9:40 AM EDT 08/21/2018 9:52 AM EDT Narrative [facility] - 08/21/2018 1:25 PM EDT [employer], a member of [address] [address] [employer]ator - Dalia [place] [id number] ORD# [id number] Louis Forrester NP LAB - BLOOD DRAW Edited Result - Final Performing Organization Address City/[facility]/ZIP Co de Phone Number [address] [address], * COLONOSCOPY (05/05/2015 9:58 AM EST) Impressions Mikey Roque PA - 05/05/2015 9:58 AM EST Repeat in 10 years us Provider [facility] PROCEDURES Final Result from Last 3 Months or Most Recently Relevant to Health Maintenance Insurance [place] [facility] [place] MEDICAID AETNA MEDICARE Advance Directives Healthcare Agents on File Name Relationship Healthcare Agent [facility] Communication Bianca Dominguez Relative Health Care Agent Care Teams Vp Transportation Relationship Specialty Start Date End Date Compa Duenas FNP [address] [place] [address] PCP - General Family Medicine, RECEIVING DOCK CHECKER 01/22/20
--- OUTSIDE RECORDS SUMMARY | 2025-01-02 10:13 | XMS_ITS | Clinical Summary ---
Author Organization [facility] Address [address] [place] [phone] Phone Care Team Providers Care Dog Behaviorist Name Role Phone Compa Duenas NP Primary Care Provider +1- [phone] Allergies No known active allergies Medications atorvastatin [...] EDT - 10/03/2024 11:57 AM EDT Emergency [facility] Emergency [address] [place] [phone] Acute exacerbation of chronic low back pain (Primary Dx); Sciatica of left side Discharge Disposition: Home or Self Care from Last 3 Months Medical History Medical History Date Comments Obesity DX:Obesity Type 2 diabetes mellitus wit hout complications ([facility] V24, [facility] V28) DX:Type 2 evelyn betes mellitus without complications (HCC) Bilateral shoulder pain DX:Bilat eral shoulder pain Vitamin D deficiency DX:Vitamin D deficiency Right-sided low back pain wi th right-sided sciatica DX:Right-sided low back pain with right-sided sciatica Stage 3a chronic kidney dise ase (CKD) ([facility] V24, [facility] V28) DX:Stage 3a chronic kidney disease (CKD) ([facility]) Social History Tobacco Use Types Packs/Day Years [...] or PCV21) 03/18/2024 03/18/2019, 05/29/2018 COVID-19 Vaccine (5 - season) 2024 03/17/2022, 02/02/2021, 07/16/2020, [...] REPORT -------- Dictated By: Bandar De Los aSntos Dictated Date: 10/03/2024 10:14 ET Assigned Physician: Bandar De Los Santos Reviewed and Electronically Signed By: Bandar De Los Santos Signed Date: 10/03/2024 10:17 ET Workstation ID: [id number] Transcribed By: Self Edit Transcribed Date: 10/03/2024 [...] Signed Date: 10/03/2024 10:17 ET Workstation ID: [id number] Transcribed By: Self Edit Transcribed Date: 10/03/2024 10:14 ET Thomas DUFFY IMG XR PROCEDURES Final Resu lt from Last 3 Months Insurance A[employer]NA MEDICARE ADVANTAGE MEDICAID - [place] Care Teams Dog Behaviorist Relationship Specialty Start Date End Date Compa Duenas NP [address] [place] [address] PCP - General 03/21/22
== END 2025-01-02 09:42 | disposition home or self-care (01) ==
LOC: HO.HMCFMS 09:15
PROVIDERS: PCP Student in an Organized Health Care Education/Training Program; Visit Provider Student in an Organized Health Care Education/Training Program
DX: I10 Essential (primary) hypertension (principal); E11.9 Type 2 diabetes mellitus without complications; Z79.4 Long term (current) use of insulin; E66.811 Obesity, class 1; M25.561 Pain in right knee; G89.29 Other chronic pain; Z96.651 Presence of right artificial knee joint; M53.3 Sacrococcygeal disorders, not elsewhere classified; M48.062 Spinal stenosis, lumbar region with neurogenic claudication; M51.369 Other intervertebral disc degeneration, lumbar region without mention of lumbar back pain or lower extremity pain; M47.817 Spondylosis without myelopathy or radiculopathy, lumbosacral region; M53.87 Other specified dorsopathies, lumbosacral region

== ENCOUNTER → 2025-01-02 09:15 | Outpatient (BNVA) | payer MEDICARE, SELFPAY | PROVIDERS: PCP Student in an Organized Health Care Education/Training Program; Visit Provider Student in an Organized Health Care Education/Training Program | DX: I10 Essential (primary) hypertension (principal); E11.9 Type 2 diabetes mellitus without complications; E66.811 Obesity, class 1; Z68.31 Body mass index [BMI] 31.0-31.9, adult; M25.561 Pain in right knee; M25.562 Pain in left knee; M53.3 Sacrococcygeal disorders, not elsewhere classified; M48.062 Spinal stenosis, lumbar region with neurogenic claudication; M51.369 Other intervertebral disc degeneration, lumbar region without mention of lumbar back pain or lower extremity pain; M47.817 Spondylosis without myelopathy or radiculopathy, lumbosacral region; M53.87 Other specified dorsopathies, lumbosacral region; Z79.4 Long term (current) use of insulin; Z96.651 Presence of right artificial knee joint | CPT/HCPCS: 99212 ==

== ENCOUNTER 2025-01-05 08:49 | Outpatient (AMB) | payer MEDICARE, MEDICAID, SELFPAY ==
[2025-01-05 08:57] VITALS: BMI 32.1
--- NOTE | 2025-01-05 08:57 | HO.SPINEOV ---
Vital Signs 01/05/25 08:57 Height 5 ft 6 in Weight 199 lb BMI 32.1 Intake Visit Reasons: spinal stenosis Intake Note: Mr. Hu is here today c/o low back pain that radiates to the legs. MRI Done at [facility]. 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 He is a very nice 64-year-old gentleman with a previous history of a right L4-5 diskectomy done over 20 years ago, who recently had a right knee replacement done a few months ago for which he has struggled with ongoing pain. He has been participating in rehab exercises and when that started he noticed a pain on the left side of his low back radiating down into his left buttock in his left posterolateral thigh. The symptoms are only there when he is doing the rehabilitation exercises. A few months ago he had a flare-up that landed him in the emergency room. Subsequent MRI revealed multiple levels of disc degeneration and foraminal and central stenosis. He was sent to us for an evaluation. He was taking oxycodone when the flare-up happens, but currently has not taken it for over a week and will just take some Tylenol if his right knee is bothering him. No cauda equina symptoms. No specific back therapy has been undertaken since this started. PMH: He is a diabetic, poorly controlled A1c 7.6, hypertension, peripheral neuropathy, GERD, previous shoulder surgery, previous lumbar surgery, right knee replacement Social hx: He does not smoke, drink use any recreational drugs Medications: He did not bring a list with him today but the computer has his medications listed as Tylenol, Lipitor, baclofen, Celebrex, gabapentin, insulin, lisinopril and Ozempic Allergies: None Physical exam: Awake alert oriented no acute distress, able to stand up on his own, has tremendous pain in the right knee getting up out of a chair, he has a well healed scar in the middle of his lower lumbar spine, strength in the lower extremities is normal, reflexes diminished Imaging review: Lumbar MRI done at [facility] reveals multilevel severe degenerative disc disease, on the left at L2-3 he has a small synovial cyst causing lateral recess stenosis, at L3-4 he has moderate to severe central canal stenosis with some overlying epidural lipomatosis, at L4-5 he has facet arthropathy and moderate central canal stenosis, at L5-S1 he has bilateral severe neuroforaminal stenosis. Impression: 64-year-old male with a history of previous right L4-5 decompression/diskectomy, had a right total knee replacement and while doing rehab exercises has noticed a left lower back pain radiating into his posterolateral thigh and buttock. It sounds like nerve pain that was aggravated from these new exercises, but he has been able to modify it and more less it is gone when he is not doing the bicycle at rehab. At this point there is no surgery to offer him as the pain is associated only with his knee rehab and not really a chronic situation. He manages it with activity modifications while doing the therapy exercises. He has not needed a Percocet over a week. He is otherwise at his baseline. I told him that we would be happy to see him back if something changes down the road and the symptoms came back. Thank you for allowing us to care for your patient. The total time spent with this visit with this patient was 45 minutes reviewing history, physical exam, lumbar imaging review, and implementation of treatment plan or further diagnostic testing Justin Miranda MD,PhD [facility] Coding Level of Care Code New Pt Level 4 (11482) Diagnoses Spinal stenosis, lumbar region with neurogenic claudication M48.062
--- OUTSIDE RECORDS SUMMARY | 2025-01-05 09:28 | XMS_ITS | Clinical Summary ---
Author Organization [facility] Address [address] [place] [phone] Phone Care Team Providers Care Material Distributor Name Role Phone Compa Duneas NP Primary Care Provider +1- [phone] Allergies No known active allergies Medications atorvastatin [...] management at this time HLD (hyperlipidemia) 04/06/2022 Medical History Medical History Date Comments Obesity DX:Obesity Type 2 diabetes mellitus wit hout complications ([facility] V24, [facility] V28) DX:Type 2 evelyn betes mellitus without complications (HCC) Bilateral shoulder pain DX:Bilat eral shoulder pain Vitamin D deficiency DX:Vitamin D deficiency Right-sided low back pain wi th right-sided sciatica DX:Right-sided low back pain with right-sided sciatica Stage 3a chronic kidney dise ase (CKD) ([facility] V24, [facility] V28) DX:Stage 3a chronic kidney disease (CKD) ([facility]) Social History Tobacco Use Types Packs/Day Years [...] on patient's age to complete this topic Insurance AETNA MEDICARE ADVANTAGE MEDICAID - [place] Care Teams Material Distributor Relationship Specialty Start Date End Date Compa Duenas NP [address] [place] [address] PCP - General 03/21/22
--- OUTSIDE RECORDS SUMMARY | 2025-01-05 09:28 | XMS_ITS | Clinical Summary ---
Author Organization [facility] Address [address] [place] [address] Care Team Providers Care Rn Clinical Trials Name Role Phone Compa Duenas CHILD NUTRITION DIRECTOR Primary Care Provider [phone] Source Comments PLEASE NOTE, if this patient [...] to test blood sugar three times daily. ([employer] Ultra 2) 1 Each 05/10/19 25 Active [...] to test blood sugar three times daily. 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 ([employer] Delica 33G) 100 Each 05/10/19 25 Active [...] on 07/18/24 Arthrofibrosis right knee manipulation at [facility] on 09/12/24. Type 2 diabetes mellitus wit h diabetic polyneuropathy, with long-term current use of insulin 05/09/2024 Overview (09/23/2024): DM dx: ~[id number] per patient reports Glucometer: Omgili 2 (pt denies interest in CGM) Current [...] (05/29/18) Diabetes foot exam: Referral pending to [facility] as of 09/15/24 05/21/24 at [facility] Symptoms of arthritic changes in pedal [...] of feet. Diabetes retinal exam: 11/23/23 at [facility] Mild nonproliferative diabetic retinopathy OS, [...] of insulin 01/01/2024 Overview (09/23/2024): DM dx: ~[phone] per patient reports Glucometer: Omgili 2 (pt denies interest in CGM) Current [...] (05/29/18) Diabetes foot exam: Referral pending to [facility] as of 09/15/24 05/21/24 at [facility] Symptoms of arthritic changes in pedal [...] of feet. Diabetes retinal exam: 9/20/24 at [facility] Mild nonproliferative diabetic retinopathy [...] Overview (06/29/2022): June 20[facility] Family history of [place] (myocardial infarction) 01/2022 Overview (06/29/2022): June 2022- Cardio workup negative, continue to manage risk factors Right-sided low back pain with right-sided sciat ica 11/13/2014 Overview (12/13/2021): X-rays lumbar spine 08/09/16 @ [facility] = chronic degenerative changes (disc space narrowing, anterior spurring throughout lumbar spine, facet arthritic changes L4-S1). Bilateral shoulder pain 2013 Overview (12/13/2021): December 2021: F/U [facility]; gets steroid injections regularly Essential hypertension 10/25/2012 Hyperlipidemia LDL goal <100 10/25/2012 Type 2 diabetes mellitus wit h stage 3a chronic kidney disease, with long-term current use of insulin Overview (09/23/2024): DM dx: ~[phone] per patient reports Glucometer: [employer] Ultra 2 (pt denies interest in CGM) [...] (05/29/18) Diabetes foot exam: Referral pending to [facility] as of 09/15/24 05/21/24 at [facility] Symptoms of arthritic changes in pedal [...] of feet. Diabetes retinal exam: 11/23/23 at [facility] Mild nonproliferative diabetic retinopathy [...] Description 10/20/2024 4:00 PM EDT Office Visit [address] [phone] Zaki Hatch, PharmD 10/17/2024 2:00 PM EDT Office Visit [address] [phone] Omega Quick MD from Last 3 Months Immunizations Immunization Administration Dates Next Due Flu, Cell Culture based, Pre servative Free, 6m+, Flucelvax 04/22/2019,01/03/2016 Flu, Preservative Free 01/23/2023,2021,11/11/2020,10/29 HEP A-HEP B ([place]) 11/22/2018 Hep A, adult 03/18/2019 Hep B, Adult/Adol (FVCXPIW-G-LNXGX/RECOMBIVAX-ADULT) 06/28/2018,05/29/2018 Influenza (FLUZONE), high-do se, trivalent, PF 11/09/2023 PNEUMOCOCCAL CONJUGATE PCV 13 05/29/2018 PNEUMOCOCCAL POLYSACCHARIDE PPV23 (Pneumovax 23) 03/18/2019 Pfizer-[employer]para Medical COVID-19 Vac cine Bivalent, (CABELLO PFIZER-BIONTECH COVID-19 [...] 07/27/2023 07/24/2022, 04/04/2022 Dental Perio Charting 07/27/2023 Diabetes Foot Exam 01/23/2024 01/22/2023, 1 , 12/24/2020, Additional history exists Imm-Pneumococcal 50+ (3 of 3 - PCV20 or PCV21) 03/18/2024 03/18/2019, 05/29/2018 Ofj-DIWGN-35 ( season) 2024 03/17/2022, 02/02/2021, 07/16/2020, Additional [...] Colorectal Cancer Screening 05/04/2025 Tobacco Screening 10/20/2025 02/15/2023, , 10/23/2022 Dental FMX/Pano 04/06/2027 04/04/2022 Imm-DTaP/Tdap/Td (2 - Td or Tdap) 05/29/2028 019 Hepatitis C Screening Completed 08/21/2018, 018 Imm-Hepatitis B Completed 11/22/2018, 06/04, 05/29/2018 Imm-Zoster, Recombinant Completed 04/01/2021, 12/24 Alcohol and Drug Screen Completed 04/04/19, 03/22/2023, 06/29/2022, Additional history exists Depression Annual Screen Completed Imm-Influenza Completed 11/12/2024, 090 08/2023, 01/23/2023, Additional [...] insulin 7.7( 4:45 PM EDT) Hemanth Prieto, Maria Alejandra Procedures Procedure Name Priority Date/Time [...] disease, with long-term current use of insulin ([facility]) Type 2 diabetes mellitus with diabetic polyneuropathy, with long-term current use of insulin ([facility]) 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, with long-term current use of insulin ([facility]) HEMOGLOBIN GLYCOSYLATED A1C Routine 09/15/2024 4:45 PM EDT Type 2 diabetes mellitus with diabetic polyneuropathy, with long-term current use of insulin ([facility]) COMPREHENSIVE METABOLIC PANEL Routine 04/05/2024 9:58 AM EST Type 2 diabetes mellitus with stage 3a chronic kidney disease, with long-term current use of insulin ([facility]) 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, with long-term current use of insulin ([facility]) Essential hypertension MICROALBUMIN/CREATIN INE RATIO, URINE, RANDOM Routine 02/08/2024 10:32 AM EST Type 2 diabetes mellitus with stage 3a chronic kidney disease, with long-term current use of insulin ([facility]) 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, with long-term current use of insulin ([facility]) REFERRAL TO DIABETIC RETINAL EXAM Routine 11/23/2023 3:00 AM EDT Type 2 diabetes mellitus with stage 3a chronic kidney disease, with long-term current use of insulin ([facility]) LIPID PANEL Routine 11/22/2023 9:42 AM EDT Type 2 diabetes mellitus with stage 3a chronic kidney disease, with long-term current use of insulin ([facility]) Hyperlipidemia LDL goal <100 REFERRAL TO PODIATRY Routine 01/22/2023 3:00 AM EST Type 2 diabetes mellitus with stage 3a chronic kidney disease, with long-term current use of insulin ([facility]) BITEWINGS - FOUR RADIOGRAPHIC IMAGES [...] included. 12/25/2024 3:00 AM EDT Compa Duenas CHILD NUTRITION DIRECTOR SCAN REFERRAL Final Res ult * (ABNORMAL) GLUCOSE, BLOOD BY GLUCOSE MONITORING DEVICE (CLIA WAIVED)POCT Routine (10/20/2024 4:22 PM EDT) GLUCOSE 161(A) 70 - 100 mg/dL [facility]- BACK OFFICE POCT Capillary Blood Blood / Unknown 4:22 PM EDT Zaki Hatch PharmD LAB - BLOOD DRAW Final Re sult [facility]- BACK OFFICE POCT * (ABNORMAL) HEMOGLOBIN GLYCOSYLATED A1C Routine (09/15/2024 4:45 PM EDT) HEMOGLOBIN A1C 7.7(H) <5.7 % [facility] Comment: For someone without known diabetes, a [...] PM EDT 09/15/2024 4:45 PM EDT Narrative [facility] - 09/16/2024 7:02 AM EDT FASTING:NO Compa Duenas CHILD NUTRITION DIRECTOR LAB - BLOOD DRAW Final Re sult [facility] [address] [address], [facility] [address] [place] [address] * (ABNORMAL) COMPREHENSIVE METABOLIC PANEL (04/05/2024 9:58 AM EST) Pathologist [facility] GLUCOSE 123(H) 65 - 99 mg/dL [facility] Comment: Fasting reference interval For someone without known diabetes, a glucose value between 100 and 125 mg/dL is consistent with prediabetes and should be confirmed with a follow-up test. UREA NITROGEN (BUN) 20 7 - 25 mg/dL [facility] CREATININE (blood) 0.95 0.70 - 1.35 mg/dL [facility] EGFR 89 > OR = 60 mL/min/1. 73m2 [facility] BUN/CREATININE RATIO SEE NOTE: [facility] Comment: Not Reported: BUN and Creatinine are within reference range. SODIUM 140 135 - 146 mmol/L [facility] POTASSIUM 4.9 3.5 - 5.3 mmol/L [facility] CHLORIDE 104 98 - 110 mmol/L [facility] CARBON DIOXIDE 28 20 - 32 mmol/L [facility] CALCIUM 10.0 8.6 - 10.3 mg/dL [facility] PROTEIN, TOTAL 6.7 6.1 - 8.1 g/dL [facility] ALBUMIN 4.6 3.6 - 5.1 g/dL [facility] GLOBULIN 2.1 1.9 - 3.7 g/dL (calc) [facility] ALBUMIN/GLOBULI N RATIO 2.2 1.0 - 2.5 (calc) [facility] BILIRUBIN, TOTAL 0.6 0.2 - 1.2 mg/dL [facility] ALKALINE PHOSPHATASE 97 35 - 144 U/L [facility] AST 17 10 - 35 U/L [facility] ALT 29 9 - 46 U/L [facility] Blood Blood / Unknown 04/05/2024 9 :58 AM EST 04/05/2024 9:58 AM EST Narrative [facility] - 04/06/2024 5:17 AM EST FASTING:YES Zooomre H.BLOOM PharmD LAB - BLOOD DRAW Final Re sult [facility] [address] [address], [facility] [address] [address] * MICROALBUMIN/CREATININE RATIO, URINE, RANDOM (02/08/2024 10:32 AM EST) CREATININE, RANDOM URINE 122 20 - 320 mg/dL [facility] MICROALBUMIN 1.5 mg/dL [facility] Comment: Reference Range Not established MICROALBUMIN/CREA TININE RATIO, RANDOM URINE 12 <30 mg/g creat [facility] Comment: The ADA defines abnormalities in [...] AMBULATORY Lyndsay l Result Performing Organization Address [facility]/State/ZIP Co de Phone Number [facility] [address] [address], [facility] [address] [place] [address] * REFERRAL FOR DIABETIC RETINAL EXAM (11/23/2023 3:00 AM EDT) 11/23/2023 3:00 AM EDT Zaki Hatch PharmD REFERRAL Edited Re sult - Final * LIPID PANEL (11/22/2023 9:42 AM EDT) CHOLESTEROL, TOTAL 166 <200 mg/dL [facility] HDL CHOLESTEROL 70 > OR = 40 mg/dL [facility] TRIGLYCERIDES 109 <150 mg/dL [facility] LDL-CHOLESTEROL 77 99 mg/dL (calc) [facility] Comment: Reference range: <100 Desirable range <100 mg/dL for primary prevention; <70 mg/dL for patients with CHD or diabetic patients with > or = 2 CHD risk factors. LDL-C is now calculated using the Vin-Amber calculation, which is a validated novel method providing better accuracy than the Friedewald equation in the estimation of LDL-C. Vin SS et al. ROSE. 2013;310(19): 9701-7206 (http://education.[employer]faq/BYP621) CHOL/HDLC RATIO 2.4 <5.0 (calc) [facility] NON-HDL CHOLESTEROL 96 <130 mg/dL (calc) [facility] Comment: For patients with diabetes plus 1 major ASCVD risk factor, treating to a non-HDL-C goal of <100 mg/dL (LDL-C of <70 mg/dL) is considered a therapeutic option. Blood Blood / Unknown 11/22/2023 9 :42 AM EDT 11/22/2023 9:43 AM EDT Narrative [facility] - 11/23/2023 6:42 AM EDT FASTING:YES Zaki Hatch PharmD LAB - BLOOD DRAW Final Re sult [facility] [address] [address], [facility] [address] [address] * REFERRAL TO PODIATRY (01/22/2023 3:00 AM EST) 01/22/2023 3:00 AM EST Zaki Hatch PharmD REFERRAL Edited Re sult - Final * HEPATITIS A,B,C PANEL (08/21/2018 9:40 AM EDT) HEPATITIS B SURFACE ANTIBODY NEGATIVE NEGATIVE [facility] HEPATITIS B SURFACE ANTIGEN NEGATIVE NEGATIVE [facility] Comment: Over the counter supplements containing high doses of biotin may interfere with this assay. If interference is suspected, patients shoud be retested after refraining from biotin supplements for 72 hours. HEPATITIS C VIRUS DIAGNOSTIC NEGATIVE NEGATIVE [facility] HEPATITIS B CORE ANTIBODY NEGATIVE NEGATIVE [facility] HEPATITIS A ANTIBODY TOTAL NEGATIVE NEGATIVE [facility] Comment: Over the counter supplements containing high doses of biotin may interfere with this assay. If interference is suspected, patients shoud be retested after refraining from biotin supplements for 72 hours. Blood specimen (specimen) Blood / Unknown 08/21/2018 9:40 AM EDT 08/21/2018 9:52 AM EDT Narrative [facility] - 08/21/2018 1:25 PM EDT [employer] [address] Cosmetic Manager - Dalia Smith MD PT ID [id number] ORD# [id number] Louis Forrester NP LAB - BLOOD DRAW Edited Result - Final [facility] [address], * COLONOSCOPY (05/05/2015 9:58 AM EST) Mikey Evans PA - 05/05/2015 9:58 AM EST Repeat in 10 years us Provider [facility] PROCEDURES Final Result from Last 3 Months or Most Recently Relevant to Health Maintenance [place] [facility] [place] AETNA MEDICARE Advance Directives Healthcare Agents on File Name Relationship Healthcare Agent Veronica Dominguez Relative Health Care Agent Care Teams Rn Clinical Trials Relationship Specialty Start Date End Date Cmopa Duenas FNP [address] [place] [address] PCP - General Family Medicine, [employer] 01/22/20
== END 2025-01-05 09:47 | disposition home or self-care (01) ==
LOC: HO.HNS 08:49
PROVIDERS: PCP Student in an Organized Health Care Education/Training Program; Referring Provider Nurse Practitioner Family; Visit Provider Physician Assistant
DX: M48.062 Spinal stenosis, lumbar region with neurogenic claudication (principal)
CPT/HCPCS: 99204

== ENCOUNTER → 2025-01-05 08:49 | Outpatient (BNVA) | payer MEDICARE, MEDICAID, SELFPAY | PROVIDERS: PCP Student in an Organized Health Care Education/Training Program; Referring Provider Nurse Practitioner Family; Visit Provider Physician Assistant | DX: M48.062 Spinal stenosis, lumbar region with neurogenic claudication (principal) | CPT/HCPCS: 99202 ==

== ENCOUNTER 2025-01-09 09:02 | Outpatient (AMB) | payer MEDICARE, MEDICAID, SELFPAY ==
[2025-01-09 09:03] VITALS: BP 118/80; PULSE 87; TEMP 36.6; O2SAT 95; BMI 32.6
--- NOTE | 2025-01-09 09:03 | AM.OFFWIN_ITS ---
Intake Vital Signs 01/09/25 09:03 01/09/25 09:46 Height 5 ft 6 in Weight 202 lb BMI 32.6 BP 118/80 Blood Pressure Location Lt brachial Position Sitting Pulse 87 Pulse Source Pulse Oximeter Temp 97.8 F Temp Source Oral Pulse Oximetry (%) 95 98 Oxygen Delivery Method Room Air Room Air Intake Visit Reasons: EP - R. Leg Edema Intake Note: The EP has calf and right foot edema, pain and itching for the last one week. He did a right knee replacement surgery about five months ago. Patient Tobacco Use Status: Never used Tobacco Allergies No Known Allergies Allergy (Verified 01/09/25 09:18) Medication List - Last Reconciled 01/09/25 by Roma Bower MD acetaminophen ER 650 mg PO Q12H alcohol swabs (Alcohol Prep Pads) pad topical TID atorvastatin 40 mg PO DAILY baclofen 10 mg PO TID blood pressure monitor As directed blood sugar diagnostic (OneTouch Ultra Test strips) As directed blood-glucose meter (CloudstaffTouch Ultra2 Meter) As directed capsaicin 0.1% (Arthritis Pain Relief (capsaicin)) 1 appl topical TID celecoxib (Celebrex) 200 mg PO BID PRN 30 days [Diabetic shoes Please dispense diabetic shoes with 3 pairs of custom molded inserts.] gabapentin 300 mg PO TID insulin glargine (Lantus Solostar U-100 Insulin) 54 units (0.54 mL) subcut BEDTIME insulin lispro (Admelog SoloStar U-100 Insulin lispro) 1 sliding scale dose subcut USEASDIRECTD lancets (OneTouch Delica Plus Lancet) As directed lisinopril 20 mg PO DAILY pen needle, diabetic (Ultra-Fine Pen Needle) As directed semaglutide (Ozempic) 2 mg subcut QWEEK Do you need a note to return to daycare/school/sports/work: No HPI HPI Comments History of Present Illness Details History of Present Illness The patient is a 64 year old male with a past medical history of insulin- dependent type 2 diabetes mellitus, lumbar degenerative disc disease, lumbosacral spondylosis, peripheral neuropathy, and chronic knee pain after total replacement of right knee joint presenting with new-onset lower extremity swelling and pain following knee replacement surgery roughly 5 months ago. - Knee replacement surgery was performed approximately five months ago. - Post-surgery, the patient reports pers istent pain in the knee that has not resolved. - Also reports ongoing lower back pain w hich he has been following with pain management and spine center - Due to ongoing pain, he has been havin g difficulty ambulating and with daily activities - Swelling and pain in the right lower l eg began approximately five days ago. - Notable swelling behind the knee and p ain extending from the back of the calf - Reports no history of blood clots. - Denial of numbness or tingling in the leg - Denies any current chest pain, shortne ss of breath, fevers, or chills Review of Systems Constitutional: Negative for fevers, chills Respiratory: Negative for shortness of breath Cardiac: Negative for chest pain. Reports leg edema Musculoskeletal: Reports arthralgias, myalgias, back pain, lower extremity swelling Skin: Negative for rash or wounds Neurological: Negative for numbness, weakness Physical Exam General Appearance: Normal appearance, well developed. No acute distress Head: Normocephalic, atraumatic Cardiovascular: RRR, No Murmurs auscultated Pulmonary: No respiratory distress. Speaking in full sentences. CTAB. Musculoskeletal: Healed linear surgical scar overlying the right knee without erythema or swelling. +1 pitting edema noted of the RLE with calf TTP. Right calf measured at 42.5 cm compared to left calf measured at 40.5 cm. No significant warmth or erythema noted of the right lower extremity Positive Homans sign. +2 dorsalis pedis pulses bilaterally. Cap refill < 2 seconds. Sensation equal and intact in lower extremties bilaterally. Mental Status: Alert and Oriented x 3 Psychiatric: Normal mood. Normal affect. [facility] Medical History Insulin dependent type 2 diabetes mellitus Hypertension GERD (gastroesophageal reflux disease) Obesity, Class I, BMI 30-34.9 Osteoarthritis of right knee Surgical History History of arthroplasty of right knee Family History Father Heart attack Mother Heart attack Social History Housing: Apartment Alcohol intake: current Alcohol intake frequency: does not drink Patient Tobacco Use Status: Never used Tobacco service: No Current occupational status: disabled Cognitive needs: Yes (cane and walker) Hearing needs: No Vision needs: Yes (reading glasses) Physical Exam Vital Signs: Last Vital Signs Temp 97.8 F 01/09/25 09:03 Pulse 87 01/09/25 09:03 BP 118/80 01/09/25 09:03 Pulse Ox 98 01/09/25 09:46 Oxygen Delivery Method Room Air 01/09/25 09:46 BMI result Body Mass Index 32.6 Assessment & Plan Assessment & Plan (1) Right calf pain: Code(s): M79.661 - Pain in right lower leg Plan - Patient presents with new onset right calf pain and swelling for the last 5 days. - Patient has had ongoing right knee pain after total knee replacement 5 months ago as well as ongoing lower back pain which has made him more sedentary lately - Patient noted to have +1 pitting edema overlying the right anterior tibia with calf tenderness to palpation and positive Homans sign. - He currently denies any chest pain or shortness of breath. Vitals within normal limits - Advised stat right lower extremity ultrasound to rule out DVT. - Spoke to central scheduling who scheduled patient for a 10:00am ultrasound at [facility] - Instructed the patient to go directly for the ultrasound to avoid any delay in diagnosis. Patient was agreeable with plan - Will F/U with patient regarding ultrasound results - Advised monitoring signs of pulmonary embolism including sudden shortness of breath or chest pain. Patient was informed and verbally consented to the use of an ambient scribe for clinic note documentation during the visit. Orders: Orders US venous duplex LE RT Today M79.661 - Pain in right lower leg Coding Level of Care Code Est Pt Level 4 (94881) Diagnoses Right calf pain M79.661
[2025-01-09 09:46] VITALS: O2SAT 98
--- OUTSIDE RECORDS SUMMARY | 2025-01-09 10:02 | XMS_ITS | Clinical Summary ---
Author Organization [facility] Address [address] [place] [phone] Phone Care Team Providers Care Machinist Helper Marine Name Role Phone Compa Duenas NP Primary Care Provider [phone] Allergies No known active allergies Medications atorvastatin [...] Type 2 diabetes mellitus wit hout complications ([facility] V24, [facility] V28) DX:Type 2 evelyn betes mellitus without complications (HCC) Bilateral shoulder pain DX:Bilat eral shoulder pain Vitamin D deficiency DX:Vitamin D deficiency Right-sided low back pain wi th right-sided sciatica DX:Right-sided low back pain with right-sided sciatica Stage 3a chronic kidney dise ase (CKD) ([facility] V24, [facility] V28) DX:Stage 3a chronic kidney disease (CKD) ([facility]) Social History Tobacco Use Types Packs/Day Years [...] MEDICARE ADVANTAGE MEDICAID - [place] Care Teams Machinist Helper Marine Relationship Specialty Start Date End Date Compa Duenas NP [address] [place] [address] PCP - General 03/21/22
--- OUTSIDE RECORDS SUMMARY | 2025-01-09 10:02 | XMS_ITS | Clinical Summary ---
Author Organization [facility] Address [address] [place] [address] Care Team Providers Care Tribunal Member Name Role Phone Compa Duenas PIPE FOREMAN Primary Care Provider [phone] Source Comments PLEASE NOTE, if this patient [...] to test blood sugar three times daily. ([employer] Ultra 2) 1 Each 05/10/19 25 Active [...] to test blood sugar three times daily. 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 ([employer] Delica 33G) 100 Each 05/10/19 25 Active [...] on 07/18/24 Arthrofibrosis right knee manipulation at [facility] on 09/12/24. Type 2 diabetes mellitus wit h diabetic polyneuropathy, with long-term current use of insulin 05/09/2024 Overview (09/23/2024): DM dx: ~0660-2631 per patient reports Glucometer: Quick Hang 2 (pt denies interest in CGM) Current [...] (05/29/18) Diabetes foot exam: Referral pending to [facility] as of 09/15/24 05/21/24 at [facility] Symptoms of arthritic changes in pedal [...] of feet. Diabetes retinal exam: 11/23/23 at [facility] Mild nonproliferative diabetic retinopathy OS, [...] of insulin 01/01/2024 Overview (09/23/2024): DM dx: ~[phone] per patient reports Glucometer: Quick Hang 2 (pt denies interest in CGM) Current [...] (05/29/18) Diabetes foot exam: Referral pending to [facility] as of 09/15/24 05/21/24 at [facility] Symptoms of arthritic changes in pedal [...] of feet. Diabetes retinal exam: 9/20/24 at [facility] Mild nonproliferative diabetic retinopathy [...] Overview (06/29/2022): June 20[facility] Family history of [place] (myocardial infarction) 01/2022 Overview (06/29/2022): June 2022- Cardio workup negative, continue to manage risk factors Right-sided low back pain with right-sided sciat ica 11/13/2014 Overview (12/13/2021): X-rays lumbar spine 08/09/16 @ [facility] = chronic degenerative changes (disc space narrowing, anterior spurring throughout lumbar spine, facet arthritic changes L4-S1). Bilateral shoulder pain 2013 Overview (12/13/2021): December 2021: F/U [facility]; gets steroid injections regularly Essential hypertension 10/25/2012 Hyperlipidemia LDL goal <100 10/25/2012 Type 2 diabetes mellitus wit h stage 3a chronic kidney disease, with long-term current use of insulin Overview (09/23/2024): DM dx: ~2825-3106 per patient reports Glucometer: [employer] Ultra 2 (pt denies interest in CGM) [...] (05/29/18) Diabetes foot exam: Referral pending to [facility] as of 09/15/24 05/21/24 at [facility] Symptoms of arthritic changes in pedal [...] of feet. Diabetes retinal exam: 11/23/23 at [facility] Mild nonproliferative diabetic retinopathy [...] Description 10/20/2024 4:00 PM EDT Office Visit [address] [phone] Zaki Hatch, PharmD 10/17/2024 2:00 PM EDT Office Visit [address] [phone] Omega Quick MD from Last 3 Months Immunizations Immunization Administration Dates Next Due Flu, Cell Culture based, Pre servative Free, 6m+, Flucelvax 04/22/2019,01/03/2016 Flu, Preservative Free 01/23/2023,2021,11/11/2020,10/29 HEP A-HEP B ([facility]) 11/22/2018 Hep A, adult 03/18/2019 Hep B, Adult/Adol (ADXYVTY-H-BXGRB/RECOMBIVAX-ADULT) 06/28/2018,05/29/2018 Influenza (FLUZONE), high-do se, trivalent, PF 11/09/2023 PNEUMOCOCCAL CONJUGATE PCV 13 05/29/2018 PNEUMOCOCCAL POLYSACCHARIDE PPV23 (Pneumovax 23) 03/18/2019 Pfizer-Queryday COVID-19 Vac cine Bivalent, (CABELLO PFIZER-BIONTECH COVID-19 [...] - PCV20 or PCV21) 03/18/2024 03/18/2019, 05/29/2018 [id number] ( season) 2024 03/17/2022, 02/02/2021, 07/16/2020, Additional [...] disease, with long-term current use of insulin ([facility]) Type 2 diabetes mellitus with diabetic polyneuropathy, with long-term current use of insulin ([facility]) 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, with long-term current use of insulin ([facility]) HEMOGLOBIN GLYCOSYLATED A1C Routine 09/15/2024 4:45 PM EDT Type 2 diabetes mellitus with diabetic polyneuropathy, with long-term current use of insulin ([facility]) COMPREHENSIVE METABOLIC PANEL Routine 04/05/2024 9:58 AM EST Type 2 diabetes mellitus with stage 3a chronic kidney disease, with long-term current use of insulin ([facility]) 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, with long-term current use of insulin ([facility]) Essential hypertension MICROALBUMIN/CREATIN INE RATIO, URINE, RANDOM Routine 02/08/2024 10:32 AM EST Type 2 diabetes mellitus with stage 3a chronic kidney disease, with long-term current use of insulin ([facility]) 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, with long-term current use of insulin ([facility]) REFERRAL TO DIABETIC RETINAL EXAM Routine 11/23/2023 3:00 AM EDT Type 2 diabetes mellitus with stage 3a chronic kidney disease, with long-term current use of insulin ([facility]) LIPID PANEL Routine 11/22/2023 9:42 AM EDT Type 2 diabetes mellitus with stage 3a chronic kidney disease, with long-term current use of insulin ([facility]) Hyperlipidemia LDL goal <100 REFERRAL TO PODIATRY Routine 01/22/2023 3:00 AM EST Type 2 diabetes mellitus with stage 3a chronic kidney disease, with long-term current use of insulin ([facility]) BITEWINGS - FOUR RADIOGRAPHIC IMAGES [...] included. 12/25/2024 3:00 AM EDT Compa [employer] PIPE FOREMAN SCAN REFERRAL Final Res ult * (ABNORMAL) GLUCOSE, BLOOD BY GLUCOSE MONITORING DEVICE (CLIA WAIVED)POCT Routine (10/20/2024 4:22 PM EDT) GLUCOSE 161(A) 70 - 100 mg/dL [facility]- BACK OFFICE POCT Capillary Blood Blood / Unknown 4:22 PM EDT Zaki Hatch PharmD LAB - BLOOD DRAW Final Re sult [facility]- BACK OFFICE POCT * (ABNORMAL) HEMOGLOBIN GLYCOSYLATED A1C Routine (09/15/2024 4:45 PM EDT) HEMOGLOBIN A1C 7.7(H) <5.7 % [employer] Comment: For someone without known diabetes, a [...] PM EDT 09/15/2024 4:45 PM EDT Narrative [facility] - 09/16/2024 7:02 AM EDT FASTING:NO Compa Duenas PIPE FOREMAN LAB - BLOOD DRAW Final Re sult [facility] [address] [address], [employer] [address] [place] [address] * (ABNORMAL) COMPREHENSIVE METABOLIC PANEL (04/05/2024 9:58 AM EST) Pathologist [facility] GLUCOSE 123(H) 65 - 99 mg/dL [employer] Comment: Fasting reference interval For someone without known diabetes, a glucose value between 100 and 125 mg/dL is consistent with prediabetes and should be confirmed with a follow-up test. UREA NITROGEN (BUN) 20 7 - 25 mg/dL [employer] CREATININE (blood) 0.95 0.70 - 1.35 mg/dL [employer] EGFR 89 > OR = 60 mL/min/1. 73m2 [employer] BUN/CREATININE RATIO SEE NOTE: [employer] Comment: Not Reported: BUN and Creatinine are within reference range. SODIUM 140 135 - 146 mmol/L [employer] POTASSIUM 4.9 3.5 - 5.3 mmol/L [employer] CHLORIDE 104 98 - 110 mmol/L [employer] CARBON DIOXIDE 28 20 - 32 mmol/L [employer] CALCIUM 10.0 8.6 - 10.3 mg/dL [employer] PROTEIN, TOTAL 6.7 6.1 - 8.1 g/dL [facility] ALBUMIN 4.6 3.6 - 5.1 g/dL [facility] GLOBULIN 2.1 1.9 - 3.7 g/dL (calc) [facility] ALBUMIN/GLOBULI N RATIO 2.2 1.0 - 2.5 (calc) [facility] BILIRUBIN, TOTAL 0.6 0.2 - 1.2 mg/dL [facility] ALKALINE PHOSPHATASE 97 35 - 144 U/L [facility] AST 17 10 - 35 U/L [facility] ALT 29 9 - 46 U/L [facility] Blood Blood / Unknown 04/05/2024 9 :58 AM EST 04/05/2024 9:58 AM EST Narrative [facility] - 04/06/2024 5:17 AM EST FASTING:YES [employer] PharmD LAB - BLOOD DRAW Final Re sult [facility] [address] [address], [facility] [address] [phone] * MICROALBUMIN/CREATININE RATIO, URINE, RANDOM (02/08/2024 10:32 AM EST) CREATININE, RANDOM URINE 122 20 - 320 mg/dL [facility] MICROALBUMIN 1.5 mg/dL [id number] Comment: Reference Range Not established MICROALBUMIN/CREA TININE RATIO, RANDOM URINE 12 <30 mg/g creat [facility] Comment: The ADA defines abnormalities in albumin [...] AMBULATORY Lyndsay l Result Performing Organization Address [facility]/State/ZIP Co de Phone Number [facility] [address] [address], [facility] [address] [place] [address] * REFERRAL FOR DIABETIC RETINAL EXAM (11/23/2023 3:00 AM EDT) 11/23/2023 3:00 AM EDT Zaki Hatch PharmD REFERRAL Edited Re sult - Final * LIPID PANEL (11/22/2023 9:42 AM EDT) CHOLESTEROL, TOTAL 166 <200 mg/dL [facility] HDL CHOLESTEROL 70 > OR = 40 mg/dL [facility] TRIGLYCERIDES 109 <150 mg/dL [facility] LDL-CHOLESTEROL 77 99 mg/dL (calc) [facility] Comment: Reference range: <100 Desirable range <100 mg/dL for primary prevention; <70 mg/dL for patients with CHD or diabetic patients with > or = 2 CHD risk factors. LDL-C is now calculated using the Vin-Amber calculation, which is a validated novel method providing better accuracy than the Friedewald equation in the estimation of LDL-C. Vin SS et al. ROSE. 2013;310(19): 0303-0912 (http://education.Eat Club/faq/PNF786) CHOL/HDLC RATIO 2.4 <5.0 (calc) [facility] NON-HDL CHOLESTEROL 96 <130 mg/dL (calc) [facility] Comment: For patients with diabetes plus 1 major ASCVD risk factor, treating to a non-HDL-C goal of <100 mg/dL (LDL-C of <70 mg/dL) is considered a therapeutic option. Blood Blood / Unknown 11/22/2023 9 :42 AM EDT 11/22/2023 9:43 AM EDT Narrative [employer] [facility] - 11/23/2023 6:42 AM EDT FASTING:YES Zaki Hatch PharmD LAB - BLOOD DRAW Final Re sult [facility] [address] [address], [facility] [address] [address] * REFERRAL TO PODIATRY (01/22/2023 3:00 AM EST) 01/22/2023 3:00 AM EST Zaki Hatch PharmD REFERRAL Edited Re sult - Final * HEPATITIS A,B,C PANEL (08/21/2018 9:40 AM EDT) HEPATITIS B SURFACE ANTIBODY NEGATIVE NEGATIVE [facility] HEPATITIS B SURFACE ANTIGEN NEGATIVE NEGATIVE [facility] Comment: Over the counter supplements containing high doses of biotin may interfere with this assay. If interference is suspected, patients shoud be retested after refraining from biotin supplements for 72 hours. HEPATITIS C VIRUS DIAGNOSTIC NEGATIVE NEGATIVE [facility] HEPATITIS B CORE ANTIBODY NEGATIVE NEGATIVE [facility] HEPATITIS A ANTIBODY TOTAL NEGATIVE NEGATIVE [facility] Comment: Over the counter supplements containing high doses of biotin may interfere with this assay. If interference is suspected, patients shoud be retested after refraining from biotin supplements for 72 hours. Blood specimen (specimen) Blood / Unknown 08/21/2018 9:40 AM EDT 08/21/2018 9:52 AM EDT Narrative [facility] - 08/21/2018 1:25 PM EDT [employer], [place] [address] Maintenance And Repair Worker - Dalia Smith MD PT ID [id number] ORD# [id number] Louis oFrrester NP LAB - BLOOD DRAW Edited Result - Final [employer] [address], * COLONOSCOPY (05/05/2015 9:58 AM EST) Mikey Evans PA - 05/05/2015 9:58 AM EST Repeat in 10 years us Provider [facility] PROCEDURES Final Result from Last 3 Months or Most Recently Relevant to Health Maintenance [place] [facility] [place] AET[employer] MEDICARE Advance Directives Healthcare Agents on File Name Relationship Healthcare Agent Veronica Dominguez Relative Health Care Agent Care Teams Tribunal Member Relationship Specialty Start Date End Date Compa Duenas FNP [address] [place] [address] PCP - General Family Medicine, RETAIL WORKER 01/22/20
== END 2025-01-09 10:18 | disposition home or self-care (01) ==
PROVIDERS: PCP Student in an Organized Health Care Education/Training Program; Visit Provider Family Medicine
DX: M79.661 Pain in right lower leg (principal)

== ENCOUNTER 2025-01-09 10:07 | Outpatient (REF) | payer MEDICARE, MEDICAID, SELFPAY ==
--- NOTE | ~2025-01-09 | US_ITS ---
EXAMINATION: US TRIPLEX LOWER EXTREMITY, RIGHT CLINICAL INFORMATION: M79.661 - Pain in right lower leg, DVT COMPARISON: None available. TECHNIQUE: Color-flow triplex imaging with spectral analysis and compression Doppler were performed on the right lower extremity. FINDINGS: Hypoechoic material mildly distends the common femoral vein, femoral vein, popliteal vein, and into the peroneal and posterior tibial veins in the mid lower leg. There is little to no flow on color Doppler and duplex. Flow is documented in the deep femoral vein and a duplicated femoral vein on color Doppler. There is flow in the left common femoral vein with normal respiratory variability. These last 3 Images in the study are mislabeled Right CFV US/US venous duplex LE RT IMPRESSION: Extensive right lower extremity DVT. Dr. Bower notified and patient instructed to report to the emergency department. Electronically signed by: Raghav Grady MD 01/09/2025 11:59 AM [facility]
== END 2025-01-09 10:08 | disposition home or self-care (01) ==
LOC: HO.US 10:07
PROVIDERS: Visit Provider Family Medicine
DX: M79.661 Pain in right lower leg (principal)
CPT/HCPCS: 93971

== ENCOUNTER → 2025-01-09 10:09 | Outpatient (BNV) | payer MEDICARE, MEDICAID, SELFPAY | PROVIDERS: Visit Provider Radiology Diagnostic Radiology | DX: K44.9 Diaphragmatic hernia without obstruction or gangrene (principal); R07.1 Chest pain on breathing; I82.401 Acute embolism and thrombosis of unspecified deep veins of right lower extremity | CPT/HCPCS: 71275; 74177; 93971 ==

== ENCOUNTER 2025-01-09 11:47 | Inpatient (IN) | payer MEDICARE, MEDICAID, SELFPAY ==
--- NOTE | ~2025-01-09 | CT_ITS ---
EXAMINATION: CT ANGIOGRAM CHEST CLINICAL INFORMATION: Pleuritic chest pain COMPARISON: None available. TECHNIQUE: Multiple axial images were obtained through the chest after the administration of 100 mL of Omnipaque 350 intravenous contrast. Extensive vascular post-processing including two-dimensional and three-dimensional reformatted images were created and reviewed on an independent workstation. This CT examination was performed using dose optimization techniques as appropriate, variously including the following: *Automated exposure control *Adjustment of mA and/or kV according to patient size (this includes techniques or standardized protocols for targeted exams where dose is matched to indication/reason for exam; i.e. extremities or head) *Use of iterative reconstruction technique FINDINGS: QUALITY OF STUDY/CONTRAST BOLUS: Good PULMONARY ARTERIES: There are filling defects in the pulmonary artery leading to the right lower lobe, right middle lobe, lingula, and left lower lobe. THORACIC AORTA: Minimal atherosclerotic ossification in the aortic arch is present. LUNGS AND PLEURA: Lungs are clear. There is no pleural effusion or pleural thickening. MEDIASTINUM: There is no flattening of the right intraventricular septum reflux of contrast into the hepatic veins to suggest right heart strain. The heart size is within normal limits. CORONARY ARTERY CALCIFICATION: Present CHEST WALL/AXILLA: No axillary or internal mammary lymphadenopathy. UPPER ABDOMEN: See same day CT abdomen and pelvis BONES: Unremarkable CT/CT angio chest PE protocol IMPRESSION: Positive bilateral pulmonary artery emboli. No sign of right heart strain. Fleischner guidelines were followed. Electronically signed by: Raghav Grady MD 01/09/2025 02:32 PM [facility] [place]
--- NOTE | ~2025-01-09 | CT_ITS ---
EXAMINATION: CT ABDOMEN PELVIS WITH IV CONTRAST HISTORY: RLE DVT COMPARISON: Right leg venous ultrasound from the same day, chest CTA from the same day and lumbar spine MRI from yesterday TECHNIQUE: CT scan of the abdomen and pelvis was performed following administration of 85 mL Omnipaque 350 using standard departmental protocol. Coronal and sagittal reformatted images were generated and reviewed. This CT exam was performed with one or more of the following dose reduction techniques: automated exposure control, adjustment of the mA and/or kV according to patient size, use of iterative reconstruction technique. DLP: 566 mGy-cm FINDINGS: LOWER CHEST: Bilateral lower lobe pulmonary emboli better seen on chest CTA from earlier the same day. LIVER: The liver is normal in size and contour. No liver mass is identified. The hepatic and portal veins are patent. GALLBLADDER / BILE DUCTS: The gallbladder is unremarkable. There is no intra or extrahepatic biliary ductal dilatation. SPLEEN: The spleen is normal in size. No focal splenic lesion is identified. PANCREAS: The pancreas is unremarkable in appearance. ADRENAL GLANDS: Within normal limits. KIDNEYS/RETROPERITONEUM: Small 5 mm low-attenuation lesion in the posterior upper pole of the left kidney. This is difficult to accurately characterize due to small size but probably represents a small cyst. There is mild bilateral renal cortical thinning or scarring. No renal calculi are identified. There is no hydronephrosis. No renal masses are identified. LYMPH NODES: Small VASCULATURE: Mild atherosclerotic disease. No aneurysm. Low-attenuation in the right common femoral vein and enlargement which may correspond to known right DVT. No definite evidence of extension into the iliac system or IVC is seen. MESENTERY/PERITONEUM: No free fluid. No masses. There is no free intraperitoneal gas. STOMACH: Normal SMALL BOWEL: Slightly distended fluid-filled proximal small bowel question mild circumferential wall thickening.. Small bowel loops measure up to 3.5 cm. No definite mass appreciated. Distal small bowel appears normal appearing. COLON: The colon is unremarkable. APPENDIX: The appendix tip extends into the right inguinal hernia. The appendix is otherwise normal. URINARY BLADDER/PELVIC ORGANS: Small portion of the bladder in the neck of the right internal hernia. Bladder otherwise normal. Slightly enlarged prostate gland measuring 3.8 x 5.3 cm. BONES / SOFT TISSUES: Degenerative changes of the spine and hip joints. Small nonspecific sclerotic lesions in the L1 and L4 vertebral bodies and right femur. Right inguinal hernia containing fat, the tip of the appendix and some some of the bladder. Small umbilical hernia containing fat. CT/CT abdomen pelvis w IV con IMPRESSION: Mild dilatation of the proximal small bowel and question bowel wall thickening. Appearance questionable for mild enteritis. No definite mass appreciated. Small low-attenuation left renal lesion difficult to accurately characterize but probably represents a cyst. Small right inguinal hernia containing fat, tip of the appendix and some of the bladder. Right common femoral vein DVT. No evidence of extension into the right iliac system or IVC seen. Electronically signed by: Evette Espinoza MD 01/09/2025 03:06 PM [facility]
[2025-01-09 12:06] VITALS: BP 163/109; PULSE 90; RESP 18; TEMP 36.4; O2SAT 99; BMI 24.2
--- NOTE | 2025-01-09 12:06 | ED_ITS ---
HPI - General Adult General Chief complaint: Extremity Problem Stated complaint: blood clot Time Seen by Provider: 01/09/25 12:23 Source: patient Mode of arrival: ambulatory Limitations: no limitations History of Present Illness ED Provider: CLIVE Price HPI narrative: This is a 64-year-old male past medical history significant for an insulin dependent type 2 diabetes, hypertension, GERD, sciatica, obesity status post right total knee about 5 months ago he states complaining of right lower extremity pain and swelling he reports this has been going on for the past few months worsening. He reports he had an ultrasound today and was told to come into the emergency department. He also reports associated chest discomfort and pleuritic chest pain. This has also been going on for about a month. He denies fevers, chills, nausea, vomiting, abdominal pain, headache, vision changes, dizziness and weakness. He is not currently anticoagulated Related Data Home Medications ?Medication ?Instructions ?Recorded ?Confirmed alcohol swabs (Alcohol Prep Pads) pad topical TID diab etes mellitus 11/05/24 01/09/25 atorvastatin 40 mg tablet 40 mg PO DAILY cholesterol 0 11/05/24 01/09/25 baclofen 10 mg tablet 10 mg PO TID 11/05/24 blood sugar diagnostic (OneTouch #10 ea 11/05/2401/09 Ultra Test strips) lancets 33 gauge (OneTouch Delica #100 ea 11/05/2409/26 Plus Lancet) pen needle, diabetic 31 gauge x #1,200 ea 11/05/2409/26 5/16 (Ultra-Fine Pen Needle) semaglutide 2 mg/dose (8 mg/3 mL) 2 mg subcut QWEEK 01/09/25 subcutaneous pen injector (Ozempic) blood-glucose meter (OneTouch #1 ea 11/06/24 01/02/25 Ultra2 Meter) Previous Rx's ?Medication ?Instructions ?Recorded capsaicin 0.1 % topical cream 1 appl topical TID Perip heral 11/26/24 (Arthritis Pain Relief (capsaicin)) neuropathy #42.5 g priscilla blood pressure monitor #1 ea 12/04/24 acetaminophen 650 mg 650 mg PO Q12H #90 tabs 12/03 09/26 tablet,extended release gabapentin 300 mg capsule 300 mg PO TID #360 caps 12/03 09/26 lisinopril 20 mg tablet 20 mg PO DAILY #90 tabs 12/03 09/26 insulin glargine 100 unit/mL (3 54 unit (0.54 mL) subc ut BEDTIME 12/22/24 mL) subcutaneous pen (Lantus diabetes mellitus #15 mL Solostar U-100 Insulin) insulin lispro 100 unit/mL 1 sliding scale dose subcut 12/22/24 subcutaneous pen (Admelog SoloStar USEASDIRECTD #15 mL U-100 Insulin lispro) celecoxib 200 mg capsule (Celebrex) 200 mg PO BID PRN pain 30 days #60 12/23/24 caps Diabetic shoes #1 ea 12/31/24 Allergies Allergy/AdvReac Type Severity Reaction Status Date / Time No Known Allergies Allergy Verified 01/09/25 12:09 Review of Systems 2 Review of Systems: Yes all other systems are reviewed and are negative PMFSH Past Medical History Attestation statement: The following information was validated with the patient. Source: old records reviewed and nursing notes reviewed Medical History Insulin dependent type 2 diabetes mellitus Hypertension GERD (gastroesophageal reflux disease) Obesity, Class I, BMI 30-34.9 Osteoarthritis of right knee Surgical History History of arthroplasty of right knee Family History Family History Father Heart attack Mother Heart attack Social History Social History Housing: Apartment Alcohol intake: current Alcohol intake frequency: does not drink Patient Tobacco Use Status: Never used Tobacco Smoked in Last 30 Days: No Use of substances other than those prescribed or required for medical reasons: No Advance Directives: No Advance Directives Information Provided: Yes service: No Current occupational status: disabled Cognitive needs: Yes (cane and walker) Hearing needs: No Vision needs: Yes (reading glasses) Physical Exam ED Exam Exam: Appearance: Alert.? Oriented X3.? No acute distress.? Head: Normocephalic, atraumatic, no step-offs or deformities Eyes: Pupils equal, round and reactive to light.? ENT: Pharynx normal.? Neck: Normal inspection.? Neck supple.? CVS: Normal heart rate and rhythm.? Pulses normal.? Respiratory: No respiratory distress.? Breath sounds normal.? Abdomen: Soft and nontender.? Skin: Skin warm and dry.? Normal skin color.? Normal skin turgor.? Extremities: 2+ nonpitting edema to right lower extremity normal distal sensation. 2+ dorsalis pedis, anterior tibialis and posterior tibialis pulses equal bilateral.? No calf ttp. 5/5 strength to bilateral upper and lower extremities Back: No midline tenderness, no C-spine tenderness, full range of motion, no CVA tenderness bilaterally Neuro: Oriented X 3.? No motor deficit.? No sensory deficit. CN 2-12 intact Vital Signs: Vital Signs - 24 hr 01/09/25 12:06 01/09/25 13:01 01/09/25 15:19 Temperature 97.5 F 97.6 F 97.6 F Pulse Rate 90 91 91 Respiratory Rate 18 14 14 Blood Pressure 163/109 H 148/93 H 148/93 H Pulse Oximetry 99 97 97 Oxygen Delivery Method Room Air Room Air Room Air BMI result Body Mass Index 31.8 Vital signs stable Course Course Course Narrative: This is an RME: Additional HPI, ROS, PE not included below will be deferred to primary provider. RME assessment and note performed by: Мария Briones PA-C This is a 61-uecr-sbb-male, with a hx of HTN, DM, who presents to the ER with a complaint of abnormal US. Had US this morning and this revealed an extensive right lower extremity DVT. Had knee replacement 6 months ago and has had pain and cramping in his right leg. US report: Hypoechoic material mildly distends the common femoral vein, femoral vein, popliteal vein, and into the peroneal and posterior tibial veins in the mid lower leg . Reports that he is feeling shortness of breath. Reports several days ago he had chest pain, chest pain resolved after drinking water. Plan: Labs, EKG, further ER eval needed Reevaluation(s) Reevaluation #1: Patient's CBC unremarkable. Chemistry no acute findings needing intervention. Coags normal After discussion with Dr. Brito I ordered heparin on this patient. Pending CT scans Time: 12:50 Reevaluation #2: Chest CTA does show positive bilateral pulmonary artery emboli. No signs of heart strain. CT of the abdomen shows mild dilation of the proximal small bowel question small bowel wall thickening, I do not suspect patient has enteritis no symptoms of this. No mass appreciated. Small low attenuated left renal lesion difficult to accurately characterize likely representing a cyst. Small right inguinal hernia containing fat unlikely incarcerated. Right common femoral DVT noted no evidence of extension into the right iliac system or IVC. Patient currently receiving heparin plan is hospital admission. Time: 15:43 Medications Administered Generic Name Dose Route Start Last Admin Trade Name Freq PRN Reason Stop Dose Admin Heparin Sodium/Sodium Chloride 25,000 unit in 250 mls @ 0 mls/hr 01/09/25 13:15 01/09/25 13:32 Heparin Sodium,Porcine/1/2ns IVCONT 14 units/kg/hr .Q0M ALICIA 12.5 mls/hr Protocol Administration Per Protocol Discontinued Medications Generic Name Dose Route Start Last Admin Trade Name Freq PRN Reason Stop Dose Admin Heparin Sodium (Porcine) 5,400 unit 01/09/25 12:50 01/09/25 13:27 Heparin Sodium,Porcine 5,000 Unit/Ml Vial 80 unit/kg (5400 unit) 01/09/25 12:51 5,400 unit IVPUSH Administration ONCE ONE Iohexol 100 ml 01/09/25 14:10 01/09/25 14:11 Iohexol 350 Mg/Ml 100 Ml Infus..Btl IV 01/09/25 14:11 100 ml ONCE ONE Administration Medical Decision Making Medical Decision Making [facility] Narrative: 1243 64-year-old male presents with right lower extremity pain, swelling ongoing for the past few months status post total right knee 5 months ago Physical exam with 2+ nonpitting edema to the entire right lower extremity palpable pulses normal distal sensation Venous duplex from earlier shows extensive right lower extremity DVT. Very high suspicion for DVT. Unlikely arterial occlusion. Will rule out PE as patient has pleuritic chest pain. Unlikely ACS. Plan at this time DVT steady review as patient already had it done. Will add PE steady. Will obtain basic labs coags Differential Diagnosis Differential Diagnoses: The differential diagnosis associated with the presentation includes (Very high suspicion for DVT. Unlikely arterial occlusion. Will rule out PE as patient has pleuritic chest pain. Unlikely ACS.) Admission/Observation Consideration of admission/observation: Escalation of care including admission/observation considered Consult Healthcare Provider Management of the patient was discussed with: Chief Meter Reader Lab Data [facility] Lab Attestation statement: I reviewed the patient's lab results. 01/09/25 13:00 01/09/25 12:48 Labs: Lab Results 01/09/25 01/09/25 Range/Units 12:48 13:00 WBC 10.8 10.2 (4.8-10.8) X10*3/uL RBC 4.92 5.02 (4.60-5.80) X10*6/uL Hgb 15.1 15.3 (14.0-18.0) g/dl Hct 45.7 46.7 (42.0-52.0) % MCV 92.9 93.0 (80.0-98.0) fL MCH 30.7 30.5 (27.0-33.0) pg MCHC 33.0 32.8 (31.0-36.0) g/dl RDW 14.6 14.6 (11.0-16.0) % Plt Count 141 L 144 L (160-400) X10*3/uL MPV 10.9 11.3 (9.4-12.4) fL Immature Gran % (Auto) 0.9 H (0.0-0.4) % Neut % (Auto) 70.1 (45-73) % Lymph % (Auto) 19.1 L (20-40) % [place] % (Auto) 8.2 (2-11) % Eos % (Auto) 1.2 (0-4) % Baso % (Auto) 0.5 (0-2) % Lymph # (Auto) 2.1 (1.2-4.9) X10*3/uL [place] # (Auto) 0.9 (0.1-1.2) X10*3/uL Eos # (Auto) 0.1 (0.0-0.4) X10*3/uL Baso # (Auto) 0.1 (0.0-0.2) X10*3/uL Abs Immat Gran (auto) 0.10 H (0.00-0.03) X10*3/uL Absolute Neuts (auto) 7.6 (2.0-8.3) x10*3/uL Absolute Nucleated RBC 0.000 0.000 (0.0-0.012) X10*3/uL Nucleated RBC % (auto) 0.0 0.0 (0.0-0.2) /100WBC PT 13.2 13.0 (11.2-13.5) SEC INR 1.1 1.1 (0.9-1.1) APTT 26.9 (26.7-34.1) SEC aPTT Heparin Protocol 27.5 L (53-77.9) SEC Sodium 143 (135-145) mmol/L Potassium 4.1 (3.3-5.1) mmol/L Chloride 107 (96-108) mmol/L Carbon Dioxide 25 (22-29) mmol/L Anion Gap 15 (12-20) BUN 15 (9-16) mg/dL Creatinine 0.86 (0.5-1.4) mg/dL Estim Creat Clear Calc 88.4 Estimated GFR > 60 Random Glucose 94 (60-115) mg/dL Calcium 9.6 (8.4-10.2) mg/dL Total Bilirubin 0.7 (0.0-1.0) mg/dL Direct Bilirubin 0.2 (0.0-0.5) mg/dL AST 20 (5-37) U/L ALT 35 (0-40) U/L Alkaline Phosphatase 109 (39-117) U/L Troponin I High Sens 6.5 (<3.5-35.0) ng/L NT-Pro-B Natriuret Pep 73.1 (<300) pg/mL Total Protein 7.0 (6.5-8.0) g/dL Albumin 4.2 (3.5-5.0) g/dL Independent Interpretation I performed an independent interpretation of an: Ultrasound (FINDINGS: Hypoechoic material mildly distends the common femoral vein, femoral vein, popliteal vein, and into the peroneal and posterior tibial veins in the mid lower leg. There is little to no flow on color Doppler and duplex. Flow is documented in the deep femoral vein and a duplicated femoral) Radiology Impression Discussion of test interpretation with radiology: I have reviewed the radiologist's reading. External Record Review External record reviewed: Inpatient record, Office record, Outpatient record, Prior outpatient labs, Prior outpatient radiology, Primary care record and Outside ED record Chronic Conditions Patient?s care impacted by: Other (see hpi ) Critical Care Time Critical Care Time Critical Care Time: Yes Total Critical Care Time: 45 Attestation: I attest to this time spent taking care of the patient, obtaining history, physical, reviewing labs, imaging, treatment of patients condition +/- specialist/hospitalist consult +/- procedure Discharge Plan Discharge Clinical Impression: Deep vein thrombosis of lower extremity, Chest pain, pleuritic, Pulmonary embolism Patient Disposition: Admitted As Inpatient Print Language: Namibian
--- NOTE | 2025-01-09 12:09 | ECG_ITS ---
Test Reason : CP Blood Pressure : */* mmHG Vent. Rate : 84 BPM Atrial Rate : 84 BPM P-R Int : 142 ms QRS Dur : 88 ms QT Int : 330 ms P-R-T Axes : 56 2 26 degrees QTcB Int : 389 ms Sinus rhythm with marked sinus arrhythmia with occasional Premature ventricular complexes Septal infarct , age undetermined Abnormal ECG No previous ECGs available Referred By: Мария Briones Electronically Signed By: Gary Bains
[2025-01-09 12:56] LABS: MANUAL DIFF FLAG NO
[2025-01-09 12:58] LABS: Hematocrit 45.7 % (42.0-52.0); Hemoglobin 15.1 g/dl (14.0-18.0); Imm Gran Abs Auto 0.10 X10*3/uL (0.00-0.03); Imm Gran Pct Auto 0.9 % (0.0-0.4); Lymphocytes Absolute Auto 2.1 X10*3/uL (1.2-4.9); Mean Corpuscular HGB Conc 33.0 g/dl (31.0-36.0); Mean Corpuscular Hemoglobin 30.7 pg (27.0-33.0); Mean Corpuscular Volume 92.9 fL (80.0-98.0); NRBC Abs Auto 0.000 X10*3/uL (0.0-0.012); NRBC Pct Auto 0.0 /100WBC (0.0-0.2); Platelet Count 141 X10*3/uL (160-400); Red Blood Count 4.92 X10*6/uL (4.60-5.80); White Blood Count 10.8 X10*3/uL (4.8-10.8)
[2025-01-09 13:01] VITALS: BP 148/93; PULSE 91; RESP 14; TEMP 36.4; O2SAT 97
[2025-01-09 13:04] VITALS: BMI 31.8
[2025-01-09 13:07] LABS: INTERNATIONAL NORM RATIO 1.1 (0.9-1.1); Prothrombin Time 13.2 SEC (11.2-13.5)
[2025-01-09 13:10] LABS: Partial Thromboplastin Time 26.9 SEC (26.7-34.1)
[2025-01-09 13:11] LABS: Alanine Aminotransferase 35 U/L (0-40); Albumin Level 4.2 g/dL (3.5-5.0); Alkaline Phosphatase 109 U/L (39-117); Anion Gap 15 (12-20); Aspartate Amino Transferase 20 U/L (5-37); Blood Urea Nitrogen 15 mg/dL (9-16); Calcium 9.6 mg/dL (8.4-10.2); Carbon Dioxide 25 mmol/L (22-29); Chloride 107 mmol/L (96-108); Creatinine Clr Calc Pharmacy 88.4; Estimated Glomerular Filt Rate > 60; Potassium 4.1 mmol/L (3.3-5.1); Sodium 143 mmol/L (135-145); Total Protein 7.0 g/dL (6.5-8.0)
[2025-01-09 13:18] LABS: NT Pro B Type Natriuretic Pept 73.1 pg/mL (<300); Troponin-I High Sensitivity 6.5 ng/L (<3.5-35.0)
[2025-01-09 13:30] LABS: Hematocrit 46.7 % (42.0-52.0); Hemoglobin 15.3 g/dl (14.0-18.0); Mean Corpuscular HGB Conc 32.8 g/dl (31.0-36.0); Mean Corpuscular Hemoglobin 30.5 pg (27.0-33.0); Mean Corpuscular Volume 93.0 fL (80.0-98.0); NRBC Abs Auto 0.000 X10*3/uL (0.0-0.012); NRBC Pct Auto 0.0 /100WBC (0.0-0.2); Platelet Count 144 X10*3/uL (160-400); Red Blood Count 5.02 X10*6/uL (4.60-5.80); White Blood Count 10.2 X10*3/uL (4.8-10.8)
[2025-01-09 13:32] LABS: INTERNATIONAL NORM RATIO 1.1 (0.9-1.1); Prothrombin Time 13.0 SEC (11.2-13.5)
[2025-01-09] MEDS: Heparin Sodium,Porcine/1/2NS 25,000 UNIT/250 ML IV.SOLN 12.5 UNIT IVCONT (13:32)
[2025-01-09 13:35] LABS: PTT Heparin Drip 27.5 SEC (53-77.9)
--- NOTE | 2025-01-09 13:37 | PC.NURSE ---
Patient presents to ED c/o right leg pain Patient had recent surgery 5 months ago and has been experiencing persistent pain which has worsened over the last couple days pain rated 10/10 Right leg warm behind knee Patient had US performed and was told to come to hospital VSS and up to date IV Heparin started @ 14 units, no bleeding or bruising noted PTTHD redraw schedule for 1935 Patient son at bedside
[2025-01-09] MEDS: iohexoL 350 MG/ML 100 ML INFUS..BTL IV (14:11)
[2025-01-09 15:19] VITALS: BP 148/93; PULSE 91; RESP 14; TEMP 36.4; O2SAT 97
--- NOTE | 2025-01-09 16:32 | PM.IMHP ---
History of Present Illness Date of Service: 01/09/25 Attending physician on admission: Miguel Leija Chief Complaint: leg pain This is a 64-year-old male presents to the emergency department due to right leg pain. Patient reports 5 month history of worsening pain in the right lower leg. Patient underwent right total knee arthroplasty at [facility] on June [address] Justin Kahn. He struggled with pain in the postoperative period but was discharged home and began physical therapy. He continued to have significant pain and developed arthrofibrosis. On September 12 he underwent manipulation under general surgery. Patient reports ongoing persistent pain and was re-evaluated by his orthopedic surgeon, he was also seen in the emergency department at [facility] on 2 occasions due to persistent pain. OVer the past several days he has had worsening swelling and pain and was seen in the walk in clinic. He had an outpatient ultrasound which showed an extensive blood clot and he was sent to the emergency department for evaluation. Patient reported dyspnea on exertion and pleuritic chest pain as well as lower extremity swelling, pain and difficulty ambulating. DVT showed extensive right lower extremity DVT extending from the common femoral vein, femoral vein, popliteal vein and into the peroneal and posterior tibial veins in the mid lower leg. A CTA was done in the emergency department which was positive for bilateral pulmonary artery emboli. He was started on heparin drip and admission was requested. Review of Systems Review of Systems: Yes all other systems are reviewed and are negative Constitutional: Constitutional: Denies chills and Denies fever(s) Cardiovascular: Cardiovascular: Reports chest pain, Denies palpitations, Reports dyspnea and Reports dyspnea on exertion Respiratory: Respiratory: Reports dyspnea and Reports dyspnea on exertion Endocrine: Endocrine: Denies palpitations [facility] Medical History Insulin dependent type 2 diabetes mellitus Hypertension GERD (gastroesophageal reflux disease) Obesity, Class I, BMI 30-34.9 Osteoarthritis of right knee Family History Father Heart attack Mother Heart attack Surgical History History of arthroplasty of right knee Social History Housing: Apartment Alcohol intake: current Alcohol intake frequency: does not drink Patient Tobacco Use Status: Never used Tobacco Smoked in Last 30 Days: No Use of substances other than those prescribed or required for medical reasons: No Advance Directives: No Advance Directives Information Provided: Yes service: No Current occupational status: disabled Cognitive needs: Yes (cane and walker) Hearing needs: No Vision needs: Yes (reading glasses) Meds Allergies Allergy/AdvReac Type Severity Reaction Status Date / Time No Known Allergies Allergy Verified 01/09/25 12:09 Active Medications: Current Medications Heparin Sodium (Porcine) (Heparin Sodium,Porcine 5,000 Unit/Ml Vial) 3,600 unit 40 unit/kg (3600 unit) IVPUSH PROTOCOL BOLUS PRN; Protocol PRN Reason: 40 unit/kg - Heparin Protocol Heparin Sodium (Porcine) (Heparin Sodium,Porcine 5,000 Unit/Ml Vial) 7,100 unit 80 unit/kg (7100 unit) IVPUSH PROTOCOL BOLUS PRN; Protocol PRN Reason: 80 unit/kg - Heparin Protocol Heparin Sodium/Sodium Chloride (Heparin Sodium,Porcine/1/2ns) 25,000 unit in 250 mls @ 0 mls/hr IVCONT .Q0M ALICIA; Protocol Last Admin: 01/09/25 13:32 Dose: 14 units/kg/hr, 12.5 mls/hr Home Medications ?Medication ?Instructions ?Recorded ?Confirmed ?Last Taken ?Type atorvastatin 40 mg tablet 40 mg PO DAILY cholesterol 11/05/24 01/09/25 01/08/25 History blood sugar diagnostic (OneTouch #10 ea 11/05/24 01/09/25 Unknown History Ultra Test strips) lancets 33 gauge (OneTouch Delica #100 ea 11/05/24 01/09/25 Unknown History Plus Lancet) pen needle, diabetic 31 gauge x #1,200 ea 11/05/24 01/09/25 Unknown History 5/16 (Ultra-Fine Pen Needle) blood-glucose meter (OneTouch #1 ea 11/06/24 01/02/25 Unknown History Ultra2 Meter) semaglutide 2 mg/dose (8 mg/3 mL) 2 mg subcut FR 01/09/25 01/09/25 01/02/25 History subcutaneous pen injector (Ozempic) Physical Exam Vital Signs and Narrative: Vital Signs: Last Vital Signs Temp 97.6 F 01/09/25 15:19 Pulse 91 01/09/25 15:19 Resp 14 01/09/25 15:19 BP 148/93 H 01/09/25 15:19 Pulse Ox 97 01/09/25 15:19 O2 Del Method Room Air 01/09/25 15:19 BMI result Body Mass Index 31.8 Const: General: cooperative, comfortable, alert and awake Nutritional Appearance: average body habitus Orientation/consciousness: patient oriented x3 Resp: Effort & Inspection: normal respiratory effort, able to speak in complete sentences and no use of accessory muscles Auscultation: clear to auscultation bilaterally Cardio: Rate: regular rate GI: Inspection: No distended Palpation (GI): Soft to palpation Neuro: General: patient oriented x3, moves all extremities and CN's II-XI intact bilaterally Extrem: Other: RLE generalized swelling,warmth, no erythema Results Labs 01/09/25 13:00 01/09/25 12:48 Labs: Laboratory Results - last 24 hr 01/09/25 01/09/25 12:48 13:00 MCV 92.9 93.0 MCH 30.7 30.5 MCHC 33.0 32.8 RDW 14.6 14.6 Plt Count 141 L 144 L MPV 10.9 11.3 Immature Gran % (Auto) 0.9 H Neut % (Auto) 70.1 Lymph % (Auto) 19.1 L [place] % (Auto) 8.2 Eos % (Auto) 1.2 Baso % (Auto) 0.5 Lymph # (Auto) 2.1 [place] # (Auto) 0.9 Eos # (Auto) 0.1 Baso # (Auto) 0.1 Abs Immat Gran (auto) 0.10 H Absolute Neuts (auto) 7.6 Absolute Nucleated RBC 0.000 0.000 Nucleated RBC % (auto) 0.0 0.0 PT 13.2 13.0 INR 1.1 1.1 APTT 26.9 aPTT Heparin Protocol 27.5 L Anion Gap 15 Estim Creat Clear Calc 88.4 Estimated GFR > 60 Random Glucose 94 Calcium 9.6 Total Bilirubin 0.7 Direct Bilirubin 0.2 AST 20 ALT 35 Alkaline Phosphatase 109 Troponin I High Sens 6.5 NT-Pro-B Natriuret Pep 73.1 Total Protein 7.0 Albumin 4.2 Imaging Radiologist's Impressions: Impressions Chest CTA 01/09/25 13:19 IMPRESSION: Positive bilateral pulmonary artery emboli. No sign of right heart strain. Fleischner guidelines were followed. Electronically signed by: Raghav Grady MD 01/09/2025 02:32 PM EST RP Abdomen/Pelvis CT 01/09/25 14:01 IMPRESSION: Mild dilatation of the proximal small bowel and question bowel wall thickening. Appearance questionable for mild enteritis. No definite mass appreciated. Small low-attenuation left renal lesion difficult to accurately characterize but probably represents a cyst. Small right inguinal hernia containing fat, tip of the appendix and some of the bladder. Right common femoral vein DVT. No evidence of extension into the right iliac system or IVC seen. Electronically signed by: Evette Espinoza MD 01/09/2025 03:06 PM EST RP Assessment and Plan (1) Deep vein thrombosis of lower extremity: Status: Acute (2) Pulmonary embolism: Status: Acute Plan This is a 64-year-old male with a history of IDDM, chronic back pain, lumbosacral spondylosis, peripheral neuropathy, HTN, HLD with chronic right leg pain stemming from right TKA in July, seen in the outpatient clinic and found to have extensive DVT sent to the emergency department and found to have b/l PE acute extensive RLE DVT and b/l PE BNP, trop negative no sign of right heart strain started on heparin drip, will continue for now - close monitoring for bleeding, follow CBC Due to extensive nature of DVT will consult vascular surgery to evaluate if pt is candidate for thrombectomy IDDM hold semaglutide continue dose adjusted lantus, and titrate up as needed SSI, POCs, ADA diet HLD continue statin HTN continue lisinopril dvt ppx - heparin Patient will likely require 2 midnight stay in the hospital for management of extensive DVT and PE requiring IV anticoagulation and close monitoring for bleeding, specialist evaluation and possible procedure Quality Stroke Does the patient have a stroke diagnosis?: No VTE Prior VTE?: No VTE Risk Level:: Medical - moderate - high VTE Device Contraindication: Treatment Not Indicated VTE Drug Contraindication: N/A - Med Ordered
--- NOTE | 2025-01-09 17:15 | PHA.MEDREC ---
Addendum entered by Bartolome Miramontes RPh 01/09/25 17:31: Reviewed by [facility] Original Note: Pharmacy Consult ? Medication Reconciliation Pharmacy has completed the medication reconciliation. Patient was able to confirm all of his medication. Patient is not taking Baclofen 10 mg, Capsaicin 0.1 %, Celexoxib 200 mg and Meloxicam 15 mg. Patient confirmed Lantus 54 units at bedtime and Ozempic 2 mg every Sunday, last dose wad 01/02/25 and Humalog TID per sliding scale. Patient last had his medications yesterday.
--- NOTE | 2025-01-09 18:24 | PC.NURSE ---
Pt alert and oriented x4. at bedside. ED RN double checked heparin infusion with this RN. aPTT ordered appropriately. Pt ambulating to toilet. Reports pain, nida in right leg with ambulation. Rt leg swollen, itching, no redness noted. HX: back pain, sciatica.
[2025-01-09 18:30] VITALS: BMI 32.0
[2025-01-09 18:38] LABS: Glucose, Whole Blood 214 mg/dL (60-115)
[2025-01-09 18:39] VITALS: BMI 32.0
--- NOTE | 2025-01-09 18:51 | PC.NURSE ---
Gave gabapentin early because he reports he did not take it today. Neuropathy pain in toes, 09/11 pain
[2025-01-09 19:59] VITALS: BP 124/79; PULSE 90; RESP 20; TEMP 36.3; O2SAT 96
[2025-01-09 20:01] LABS: PTT Heparin Drip 88.3 SEC (53-77.9)
[2025-01-09 20:40] LABS: Glucose, Whole Blood 230 mg/dL (60-115)
[2025-01-09] MEDS: 0.9 % Sodium Chloride Flush 3 ML SYRINGE IVFLUSH (21:19)
[2025-01-09] MEDS: Insulin Glargine,Hum.rec.anlog 100 UNIT/ML 10 ML VIAL 35 UNIT SUBCUT (21:23)
[2025-01-10] VITALS: BP 116/71; PULSE 86; RESP 20; TEMP 36.3; O2SAT 96
[2025-01-10 02:48] LABS: PTT Heparin Drip 80.1 SEC (53-77.9)
[2025-01-10 04:00] VITALS: BP 128/86; PULSE 72; RESP 16; TEMP 36.2; O2SAT 97
[2025-01-10 06:28] LABS: Hematocrit 42.0 % (42.0-52.0); Hemoglobin 13.9 g/dl (14.0-18.0); Mean Corpuscular HGB Conc 33.1 g/dl (31.0-36.0); Mean Corpuscular Hemoglobin 30.4 pg (27.0-33.0); Mean Corpuscular Volume 91.9 fL (80.0-98.0); NRBC Abs Auto 0.000 X10*3/uL (0.0-0.012); NRBC Pct Auto 0.0 /100WBC (0.0-0.2); Platelet Count 123 X10*3/uL (160-400); Red Blood Count 4.57 X10*6/uL (4.60-5.80); White Blood Count 8.1 X10*3/uL (4.8-10.8)
[2025-01-10 06:37] LABS: INTERNATIONAL NORM RATIO 1.1 (0.9-1.1); Prothrombin Time 13.2 SEC (11.2-13.5)
[2025-01-10 07:29] VITALS: BP 157/92; PULSE 72; RESP 20; TEMP 36.2; O2SAT 98
[2025-01-10 07:47] LABS: Glucose, Whole Blood 99 mg/dL (60-115)
[2025-01-10] MEDS: 0.9 % Sodium Chloride Flush 3 ML SYRINGE IVFLUSH ×2 (08:00→16:28)
--- NOTE | 2025-01-10 09:18 | PM.CNGS ---
History of Present Illness Consult details Consult date: 01/10/25 Reason for consult: other (DVT with PE) Narrative: Very pleasant 64-year-old gentleman had undergone right TKA proximally 5 months ago at [facility]. Since that time he had been reporting swelling of the leg. Never improved significantly. He gone to several primary care doctors and presented to his orthopedic surgeon several times with this complaint several x-rays had been taken but no improvement. Apparently yesterday it seem to have gotten worse had seen a new primary care doc who referred him to our emergency room. Upon workup was discovered to have DVT and PE. Has been anticoagulated on heparin and appears to be doing relatively well with that. Now for follow-up evaluation. Review of Systems Review of Systems: Yes all other systems are reviewed and are negative Constitutional: Constitutional: Reports no additional constitutional complaints ENT: Reports Normal hearing present Cardiovascular: Cardiovascular: Denies chest pain, Denies chest pain at rest, Denies chest pain with activity and Denies pedal edema Respiratory: Respiratory: Denies cough Gastrointestinal: Gastrointestinal: Denies abdominal pain Musculoskeletal: Musculoskeletal: Denies abnormal gait, Denies muscle cramps and Denies radiating pain into limb Integumentary/Breasts: Skin/Breast: Denies skin ulcer and Denies wounds Neurologic: Reports Normal hearing present and Denies abnormal gait Psychiatric: Psychiatric: Reports no additional psychiatric complaints PMFSH Past Medical History Medical History Insulin dependent type 2 diabetes mellitus Hypertension GERD (gastroesophageal reflux disease) Obesity, Class I, BMI 30-34.9 Osteoarthritis of right knee Family History Family History Father Heart attack Mother Heart attack Surgical History Surgical History History of arthroplasty of right knee Social History Social History Household Members: Spouse and Children Housing: Apartment Alcohol intake: current Alcohol intake frequency: does not drink Patient Tobacco Use Status: Never used Tobacco service: No Current occupational status: disabled Cognitive needs: Yes (cane and walker) Hearing needs: No Vision needs: Yes (reading glasses) Meds Allergies Allergy/AdvReac Type Severity Reaction Status Date / Time No Known Allergies Allergy Verified 01/09/25 12:09 Active Medications: Current Medications Acetaminophen (Acetaminophen 325 Mg Tablet) 650 mg PO Q6H PRN PRN Reason: Pain, Mild 1-3,fever,headache Last Admin: 01/10/25 08:00 Dose: 650 mg Atorvastatin Calcium (Atorvastatin Calcium 40 Mg Tablet) 40 mg PO DAILY [facility] Last Admin: 01/10/25 07:59 Dose: 40 mg Calcium Carbonate (Calcium Carbonate 750 Mg Tab.Chew) 750 mg PO Q4H PRN PRN Reason: Heartburn Dextrose (Dextrose 50 % 25 Gm/50 Ml Syringe) 25 gm IVPUSH Q15M PRN; Protocol PRN Reason: per Hypoglycemia Standing Ord. Gabapentin (Gabapentin 300 Mg Capsule) 300 mg PO TID [facility] Last Admin: 01/10/25 07:59 Dose: 300 mg Glucose (Glucose Gel 15 Gm Gel..Gram.) 15 gm PO Q15M PRN; Protocol PRN Reason: per Hypoglycemia Standing Ord. Heparin Sodium (Porcine) (Heparin Sodium,Porcine 5,000 Unit/Ml Vial) 3,600 unit 40 unit/kg (3600 unit) IVPUSH PROTOCOL BOLUS PRN; Protocol PRN Reason: 40 unit/kg - Heparin Protocol Heparin Sodium (Porcine) (Heparin Sodium,Porcine 5,000 Unit/Ml Vial) 7,100 unit 80 unit/kg (7100 unit) IVPUSH PROTOCOL BOLUS PRN; Protocol PRN Reason: 80 unit/kg - Heparin Protocol Heparin Sodium/Sodium Chloride (Heparin Sodium,Porcine/1/2ns) 25,000 unit in 250 mls @ 0 mls/hr IVCONT .Q0M [facility]; Protocol Last Titration: 01/10/25 03:15 Dose: 10 units/kg/hr, 8.93 mls/hr Insulin Glargine (Insulin Glargine,Hum.Rec.Anlog 100 Unit/Ml 10 Ml Vial) 35 unit SUBCUT BEDTIME [facility] Last Admin: 01/09/25 21:23 Dose: 35 unit Insulin Human Lispro (Insulin Lispro 100 Unit/Ml 3 Ml Vial) 0 unit SUBCUT QIDACHS [facility]; Protocol Last Admin: 01/10/25 07:49 Dose: Not Given Lisinopril (Lisinopril 20 Mg Tablet) 20 mg PO DAILY [facility]; Protocol Last Admin: 01/10/25 07:59 Dose: 20 mg Magnesium Hydroxide (Milk Of Magnesia 30 Ml Oral.Susp) 30 ml PO DAILY PRN PRN Reason: Constipation Melatonin (Melatonin 3 Mg Tablet) 6 mg PO BEDTIME PRN PRN Reason: Insomnia Morphine Sulfate (Morphine Sulfate 4 Mg/Ml Cartridge) 2 mg IVPUSH Q4H PRN; Protocol PRN Reason: Pain, Severe (Pain Scale 7-10) Oxycodone HCl (Oxycodone Hcl Immed Release 5 Mg Tablet) 5 mg PO Q6H PRN PRN Reason: Pain, Moderate(Pain Scale 4-6) Sodium Chloride (0.9 % Sodium Chloride Flush 3 Ml Syringe) 3 ml IVFLUSH QSHIFT [facility] Last Admin: 01/10/25 08:00 Dose: 3 ml Home Medications ?Medication ?Instructions ?Recorded ?Confirmed ?Last Taken ?Type atorvastatin 40 mg tablet 40 mg PO DAILY cholesterol 11/05/24 01/09/25 01/08/25 History blood sugar diagnostic (OneTouch #10 ea 11/05/24 01/09/25 Unknown History Ultra Test strips) lancets 33 gauge (OneTouch Delica #100 ea 11/05/24 01/09/25 Unknown History Plus Lancet) pen needle, diabetic 31 gauge x #1,200 ea 11/05/24 01/09/25 Unknown History 5/16 (Ultra-Fine Pen Needle) blood-glucose meter (OneTouch #1 ea 11/06/24 01/02/25 Unknown History Ultra2 Meter) semaglutide 2 mg/dose (8 mg/3 mL) 2 mg subcut FR 01/09/25 01/09/25 01/02/25 History subcutaneous pen injector (Ozempic) Physical Exam Vital Signs: Vital Signs: Last Vital Signs Temp 97.2 F 01/10/25 07:29 Pulse 72 01/10/25 07:29 Resp 20 01/10/25 07:29 BP 157/92 H 01/10/25 07:29 Pulse Ox 98 01/10/25 07:29 O2 Del Method Room Air 01/10/25 07:29 BMI result Body Mass Index 32.0 Const: General: cooperative, healthy appearing and comfortable Orientation/consciousness: oriented to person, oriented to place and oriented to time HEENT: Head: Yes normal to inspection Neck: Neck: Yes normal visual inspection Carotids: no bruits Chest: Chest palpation & inspection: normal inspection of the chest Resp: Effort & Inspection: normal respiratory effort and able to speak in complete sentences Auscultation: clear to auscultation bilaterally, no crackles, no rales, no rhonchi and no wheezes Cardio: Rate: regular rate Rhythm: regular rhythm Heart sounds: S1 normal heart sound present and S2 normal heart sound present Bruits: no carotid bruits Peripheral pulses: Peripheral pulses 2+ throughout GI: Inspection: Yes normal to inspection Skin: Other: Right leg +2 edema Wounds: no wounds Hair: normal Neuro: General: oriented to person, oriented to place and oriented to time Cranial nerves: Yes CN's II-XII intact bilaterally and Yes Normal hearing present Cognition (Neuro): normal cognition Motor exam (neuro): 5/5 motor strength present throughout Extrem: Other: venous exam: No significant superficial varicosities or spider telangiectasias, minimal edema General: No clubbing, No cyanosis and No edema Psych: Appearance: grossly normal Mental Status: mental status grossly normal Speech and movement: Normal speech and movement present Results Labs 01/10/25 06:15 01/09/25 12:48 Labs: Abnormal lab results 01/09/25 01/09/25 01/09/25 Range/Units 12:48 13:00 18:33 RBC (4.60-5.80) X10*6/uL Hgb (14.0-18.0) g/dl Plt Count 141 L 144 L (160-400) X10*3/uL Immature Gran % (Auto) 0.9 H (0.0-0.4) % Lymph % (Auto) 19.1 L (20-40) % Abs Immat Gran (auto) 0.10 H (0.00-0.03) X10*3/uL aPTT Heparin Protocol 27.5 L (53-77.9) SEC POC Glucose 214 H (60-115) mg/dL 01/09/25 01/09/25 01/10/25 Range/Units 19:46 20:33 02:36 RBC (4.60-5.80) X10*6/uL Hgb (14.0-18.0) g/dl Plt Count (160-400) X10*3/uL Immature Gran % (Auto) (0.0-0.4) % Lymph % (Auto) (20-40) % Abs Immat Gran (auto) (0.00-0.03) X10*3/uL aPTT Heparin Protocol 88.3 H D 80.1 H (53-77.9) SEC POC Glucose 230 H (60-115) mg/dL 01/10/25 Range/Units 06:15 RBC 4.57 L (4.60-5.80) X10*6/uL Hgb 13.9 L (14.0-18.0) g/dl Plt Count 123 L (160-400) X10*3/uL Immature Gran % (Auto) (0.0-0.4) % Lymph % (Auto) (20-40) % Abs Immat Gran (auto) (0.00-0.03) X10*3/uL aPTT Heparin Protocol (53-77.9) SEC POC Glucose (60-115) mg/dL Short CBC 01/09/25 01/09/25 01/10/25 Range/Units 12:48 13:00 06:15 WBC 10.8 10.2 8.1 (4.8-10.8) X10*3/uL Hgb 15.1 15.3 13.9 L (14.0-18.0) g/dl Hct 45.7 46.7 42.0 (42.0-52.0) % Plt Count 141 L 144 L 123 L (160-400) X10*3/uL BMP 01/09/25 12:48 Sodium 143 Potassium 4.1 Chloride 107 Carbon Dioxide 25 BUN 15 Creatinine 0.86 Calcium 9.6 Liver Function 01/09/25 Range/Units 12:48 Total Bilirubin 0.7 (0.0-1.0) mg/dL Direct Bilirubin 0.2 (0.0-0.5) mg/dL AST 20 (5-37) U/L ALT 35 (0-40) U/L Alkaline Phosphatase 109 (39-117) U/L Albumin 4.2 (3.5-5.0) g/dL All other labs normal. Assessment and Plan (1) Deep vein thrombosis of lower extremity: Qualifiers: Affected thrombotic vein of extremity: femoral Chronicity: acute Laterality: right Qualified Code(s): I82.411 - Acute embolism and thrombosis of right femoral vein Status: Acute In short patient has right lower extremity DVT. It appears that there may be a more acute component of this. I will discuss the patient options. I have reviewed the imaging and will plan for possible intervention on Sunday if patient is agreeable. This would be more for the DVT. PE appears to be stable. He is talking and breathing comfortably on room air. (2) Pulmonary embolism: Qualifiers: Pulmonary embolism type: unspecified Chronicity: acute Acute cor pulmonale presence: unspecified Qualified Code(s): I26.99 - Other pulmonary embolism without acute cor pulmonale Status: Acute Plan Stable. Continue anticoagulation. Procedures Date of Service Date of Service: 01/10/25
[2025-01-10 09:25] LABS: PTT Heparin Drip 63.2 SEC (53-77.9)
--- NOTE | 2025-01-10 10:09 | MHC.CM.PN ---
IMM 01/10/25, Pt. lives with S.O., he does not use home health services or DME. He went to outpt. PT following knee surgery in the recent past. PCP confirmed: Primo Blanchard MD. HCP discussed, he will complete form here and it will be added to chart. He can arrange a ride home at [place], DCP: home, self care, CM to follow for DC needs.
[2025-01-10 11:32] VITALS: BP 130/93; PULSE 78; RESP 14; TEMP 36.3; O2SAT 93
[2025-01-10 11:42] LABS: Glucose, Whole Blood 140 mg/dL (60-115)
[2025-01-10] MEDS: Heparin Sodium,Porcine/1/2NS 25,000 UNIT/250 ML IV.SOLN 8.93 UNIT IVCONT (12:29)
--- NOTE | 2025-01-10 12:54 | P.PNIM_ITS ---
Subjective Subjective Date of Service: 01/10/25 Interval History: Right leg pain pain and swelling improved some Continues to have central pleuritic chest pain Breathing OK, not on O2 Vascular surgery consulted, plan on mechanical thrombectomy on Sunday for right lower extremity DVT Review of Systems Review of Systems: Yes all other systems are reviewed and are negative Physical Exam 2 Exam: Exam: General: AOx3, no acute distress Resp: CTA bilaterally CVS: S1, S2, RRR GI: +BS, NT, no distention Skin: Warm, dry Neuro: Cranial nerves II-XII grossly intact bilaterally. Motor grossly intact bilaterally Extremities: No edema. Right lower extremity with calf tenderness but without significant swelling Psych: Appropriate affect Vital Signs: Vital Signs: Last Vital Signs Temp 97.4 F 01/10/25 11:32 Pulse 78 01/10/25 11:32 Resp 14 01/10/25 11:32 BP 130/93 H 01/10/25 11:32 Pulse Ox 93 01/10/25 11:32 O2 Del Method Room Air 01/10/25 11:32 BMI result Body Mass Index 32.0 Objective Data Active Medications Acetaminophen (Acetaminophen 325 Mg Tablet) 650 mg PO Q6H PRN PRN Reason: Pain, Mild 1-3,fever,headache Last Admin: 01/10/25 08:00 Dose: 650 mg Documented By: BRIDGETTE Atorvastatin Calcium (Atorvastatin Calcium 40 Mg Tablet) 40 mg PO DAILY [facility] Last Admin: 01/10/25 07:59 Dose: 40 mg Documented By: BRIDGETTE Calcium Carbonate (Calcium Carbonate 750 Mg Tab.Chew) 750 mg PO Q4H PRN PRN Reason: Heartburn Dextrose (Dextrose 50 % 25 Gm/50 Ml Syringe) 25 gm IVPUSH Q15M PRN; Protocol PRN Reason: per Hypoglycemia Standing Ord. Gabapentin (Gabapentin 300 Mg Capsule) 300 mg PO TID [facility] Last Admin: 01/10/25 07:59 Dose: 300 mg Documented By: BRIDGETTE Glucose (Glucose Gel 15 Gm Gel..Gram.) 15 gm PO Q15M PRN; Protocol PRN Reason: per Hypoglycemia Standing Ord. Heparin Sodium (Porcine) (Heparin Sodium,Porcine 5,000 Unit/Ml Vial) 3,600 unit 40 unit/kg (3600 unit) IVPUSH PROTOCOL BOLUS PRN; Protocol PRN Reason: 40 unit/kg - Heparin Protocol Heparin Sodium (Porcine) (Heparin Sodium,Porcine 5,000 Unit/Ml Vial) 7,100 unit 80 unit/kg (7100 unit) IVPUSH PROTOCOL BOLUS PRN; Protocol PRN Reason: 80 unit/kg - Heparin Protocol Heparin Sodium/Sodium Chloride (Heparin Sodium,Porcine/1/2ns) 25,000 unit in 250 mls @ 0 mls/hr IVCONT .Q0M [facility]; Protocol Last Admin: 01/10/25 12:29 Dose: 10 units/kg/hr, 8.93 mls/hr Documented By: BRIDGETTE Co-signed By: GALINA Insulin Glargine (Insulin Glargine,Hum.Rec.Anlog 100 Unit/Ml 10 Ml Vial) 35 unit SUBCUT BEDTIME [facility] Last Admin: 01/09/25 21:23 Dose: 35 unit Documented By: DEBORA Insulin Human Lispro (Insulin Lispro 100 Unit/Ml 3 Ml Vial) 0 unit SUBCUT QIDACHS [facility]; Protocol Last Admin: 01/10/25 11:46 Dose: Not Given Documented By: BRIDGETTE Non-Admin Reason: No Insulin Coverage Lisinopril (Lisinopril 20 Mg Tablet) 20 mg PO DAILY [facility]; Protocol Last Admin: 01/10/25 07:59 Dose: 20 mg Documented By: BRIDGETTE Magnesium Hydroxide (Milk Of Magnesia 30 Ml Oral.Susp) 30 ml PO DAILY PRN PRN Reason: Constipation Melatonin (Melatonin 3 Mg Tablet) 6 mg PO BEDTIME PRN PRN Reason: Insomnia Morphine Sulfate (Morphine Sulfate 4 Mg/Ml Cartridge) 2 mg IVPUSH Q4H PRN; Protocol PRN Reason: Pain, Severe (Pain Scale 7-10) Oxycodone HCl (Oxycodone Hcl Immed Release 5 Mg Tablet) 5 mg PO Q6H PRN PRN Reason: Pain, Moderate(Pain Scale 4-6) Sodium Chloride (0.9 % Sodium Chloride Flush 3 Ml Syringe) 3 ml IVFLUSH QSHIFT [facility] Last Admin: 01/10/25 08:00 Dose: 3 ml Documented By: BRIDGETTE Labs 01/10/25 06:15 01/09/25 12:48 Labs: Laboratory Results - last 24 hr 01/09/25 01/09/2525 12:48 13:00 18:33 MCV 92.9 93.0 MCH 30.7 30.5 MCHC 33.0 32.8 RDW 14.6 14.6 Plt Count 141 L 144 L MPV 10.9 11.3 Immature Gran % (Auto) 0.9 H Neut % (Auto) 70.1 Lymph % (Auto) 19.1 L [place] % (Auto) 8.2 Eos % (Auto) 1.2 Baso % (Auto) 0.5 Lymph # (Auto) 2.1 [place] # (Auto) 0.9 Eos # (Auto) 0.1 Baso # (Auto) 0.1 Abs Immat Gran (auto) 0.10 H Absolute Neuts (auto) 7.6 Absolute Nucleated RBC 0.000 0.000 Nucleated RBC % (auto) 0.0 0.0 PT 13.2 13.0 INR 1.1 1.1 APTT 26.9 aPTT Heparin Protocol 27.5 L Anion Gap 15 Estim Creat Clear Calc 88.4 Estimated GFR > 60 POC Glucose 214 H Random Glucose 94 Calcium 9.6 Total Bilirubin 0.7 Direct Bilirubin 0.2 AST 20 ALT 35 Alkaline Phosphatase 109 Troponin I High Sens 6.5 NT-Pro-B Natriuret Pep 73.1 Total Protein 7.0 Albumin 4.2 01/09/25 01/09/25 01/10/25 19:46 20:33 02:36 MCV MCH MCHC RDW Plt Count MPV Immature Gran % (Auto) Neut % (Auto) Lymph % (Auto) [place] % (Auto) Eos % (Auto) Baso % (Auto) Lymph # (Auto) [place] # (Auto) Eos # (Auto) Baso # (Auto) Abs Immat Gran (auto) Absolute Neuts (auto) Absolute Nucleated RBC Nucleated RBC % (auto) PT INR APTT aPTT Heparin Protocol 88.3 H D 80.1 H Anion Gap Estim Creat Clear Calc Estimated GFR POC Glucose 230 H Random Glucose Calcium Total Bilirubin Direct Bilirubin AST ALT Alkaline Phosphatase Troponin I High Sens NT-Pro-B Natriuret Pep Total Protein Albumin 01/10/25 01/10/25 01/10/25 06:15 07:29 09:03 MCV 91.9 MCH 30.4 MCHC 33.1 RDW 14.6 Plt Count 123 L MPV 10.8 Immature Gran % (Auto) Neut % (Auto) Lymph % (Auto) [place] % (Auto) Eos % (Auto) Baso % (Auto) Lymph # (Auto) [place] # (Auto) Eos # (Auto) Baso # (Auto) Abs Immat Gran (auto) Absolute Neuts (auto) Absolute Nucleated RBC 0.000 Nucleated RBC % (auto) 0.0 PT 13.2 INR 1.1 APTT aPTT Heparin Protocol 63.2 D Anion Gap Estim Creat Clear Calc Estimated GFR POC Glucose 99 Random Glucose Calcium Total Bilirubin Direct Bilirubin AST ALT Alkaline Phosphatase Troponin I High Sens NT-Pro-B Natriuret Pep Total Protein Albumin 01/10/25 11:30 MCV MCH MCHC RDW Plt Count MPV Immature Gran % (Auto) Neut % (Auto) Lymph % (Auto) [place] % (Auto) Eos % (Auto) Baso % (Auto) Lymph # (Auto) [place] # (Auto) Eos # (Auto) Baso # (Auto) Abs Immat Gran (auto) Absolute Neuts (auto) Absolute Nucleated RBC Nucleated RBC % (auto) PT INR APTT aPTT Heparin Protocol Anion Gap Estim Creat Clear Calc Estimated GFR POC Glucose 140 H Random Glucose Calcium Total Bilirubin Direct Bilirubin AST ALT Alkaline Phosphatase Troponin I High Sens NT-Pro-B Natriuret Pep Total Protein Albumin Assessment and Plan (1) Deep vein thrombosis of lower extremity: Status: Acute (2) Pulmonary embolism: Status: Acute Plan This is a 64-year-old male with a history of IDDM, chronic back pain, lumbosacral spondylosis, peripheral neuropathy, HTN, HLD with chronic right leg pain stemming from right TKA in July, seen in the outpatient clinic and found to have extensive DVT sent to the emergency department and found to have b/l PE acute extensive RLE DVT and b/l PE BNP, trop negative no sign of right heart strain continue heparin drip - close monitoring for bleeding, follow CBC vascular surgery contulted, plan on RLE mechanical venous thrombectomy IDDM hold semaglutide continue dose adjusted lantus, and titrate up as needed SSI, POCs, ADA diet HLD continue statin HTN continue lisinopril dvt ppx - heparin Patient will likely require 2 midnight stay in the hospital for management of extensive DVT and PE requiring IV anticoagulation and close monitoring for bleeding, specialist evaluation and possible procedure Quality Stroke Does the patient have a stroke diagnosis?: No VTE Prior VTE?: No VTE Risk Level:: Medical - moderate - high VTE Device Contraindication: Treatment Not Indicated VTE Drug Contraindication: N/A - Med Ordered
[2025-01-10 15:27] VITALS: BP 109/76; PULSE 92; RESP 20; TEMP 37; O2SAT 95
[2025-01-10 16:20] LABS: Glucose, Whole Blood 206 mg/dL (60-115)
[2025-01-10 16:42] LABS: PTT Heparin Drip 43.2 SEC (53-77.9)
[2025-01-10 20:00] VITALS: BP 117/81; PULSE 85; RESP 20; TEMP 36.9; O2SAT 93
[2025-01-10 21:18] LABS: Glucose, Whole Blood 168 mg/dL (60-115)
[2025-01-10] MEDS: Insulin Glargine,Hum.rec.anlog 100 UNIT/ML 10 ML VIAL 35 UNIT SUBCUT (21:53)
[2025-01-10 23:50] LABS: PTT Heparin Drip 112.3 SEC (53-77.9)
[2025-01-11] VITALS (7 sets, daily range): BP systolic 90–144; BP diastolic 52–86; PULSE 69–118; RESP 16–20; TEMP 36.2–37; O2SAT 93–96
[2025-01-11 01:07] LABS: PTT Heparin Drip 63.5 SEC (53-77.9)
[2025-01-11] MEDS: Heparin Sodium,Porcine/1/2NS 25,000 UNIT/250 ML IV.SOLN 7.14 UNIT IVCONT (01:24)
[2025-01-11 07:45] LABS: Glucose, Whole Blood 84 mg/dL (60-115)
[2025-01-11] MEDS: 0.9 % Sodium Chloride Flush 3 ML SYRINGE IVFLUSH ×2 (07:47→16:45)
[2025-01-11 07:52] LABS: Hematocrit 45.3 % (42.0-52.0); Hemoglobin 14.8 g/dl (14.0-18.0); Mean Corpuscular HGB Conc 32.7 g/dl (31.0-36.0); Mean Corpuscular Hemoglobin 30.3 pg (27.0-33.0); Mean Corpuscular Volume 92.6 fL (80.0-98.0); NRBC Abs Auto 0.000 X10*3/uL (0.0-0.012); NRBC Pct Auto 0.0 /100WBC (0.0-0.2); Platelet Count 141 X10*3/uL (160-400); Red Blood Count 4.89 X10*6/uL (4.60-5.80); White Blood Count 8.2 X10*3/uL (4.8-10.8)
[2025-01-11 08:00] LABS: PTT Heparin Drip 42.0 SEC (53-77.9)
[2025-01-11 08:07] LABS: Anion Gap 14 (12-20); Blood Urea Nitrogen 21 mg/dL (9-16); Calcium 9.6 mg/dL (8.4-10.2); Carbon Dioxide 25 mmol/L (22-29); Chloride 108 mmol/L (96-108); Creatinine Clr Calc Pharmacy 86.7; Estimated Glomerular Filt Rate > 60; Potassium 4.4 mmol/L (3.3-5.1); Sodium 143 mmol/L (135-145)
[2025-01-11 11:19] LABS: Glucose, Whole Blood 157 mg/dL (60-115)
--- NOTE | 2025-01-11 15:00 | P.PNIM_ITS ---
Subjective Subjective Date of Service: 01/11/25 Interval History: Right lower leg pain and swelling improved Pleuritic chest pain also improved No acute events overnight H&H stable today Awaiting RLE thrombectomy tomorrow Review of Systems Review of Systems: Yes all other systems are reviewed and are negative Physical Exam 2 Exam: Exam: General: AOx3, no acute distress Resp: CTA bilaterally CVS: S1, S2, RRR GI: +BS, NT, no distention Skin: Warm, dry Neuro: Cranial nerves II-XII grossly intact bilaterally. Motor grossly intact bilaterally Extremities: Bilateral lower extremities appear symmetric without significant edema. Right calf NT Psych: Appropriate affect Vital Signs: Vital Signs: Last Vital Signs Temp 98.1 F 01/11/25 11:49 Pulse 118 H 01/11/25 11:49 Resp 18 01/11/25 11:49 BP 98/52 L 01/11/25 11:49 Pulse Ox 96 01/11/25 11:49 O2 Del Method Room Air 01/11/25 11:49 BMI result Body Mass Index 32.0 Objective Data Active Medications Acetaminophen (Acetaminophen 325 Mg Tablet) 650 mg PO Q6H PRN PRN Reason: Pain, Mild 1-3,fever,headache Last Admin: 01/10/25 16:26 Dose: 650 mg Documented By: BRIDGETTE Atorvastatin Calcium (Atorvastatin Calcium 40 Mg Tablet) 40 mg PO DAILY [facility] Last Admin: 01/11/25 07:46 Dose: 40 mg Documented By: BRIDGETTE Calcium Carbonate (Calcium Carbonate 750 Mg Tab.Chew) 750 mg PO Q4H PRN PRN Reason: Heartburn Dextrose (Dextrose 50 % 25 Gm/50 Ml Syringe) 25 gm IVPUSH Q15M PRN; Protocol PRN Reason: per Hypoglycemia Standing Ord. Gabapentin (Gabapentin 300 Mg Capsule) 300 mg PO TID [facility] Last Admin: 01/11/25 07:47 Dose: 300 mg Documented By: BRIDGETTE Glucose (Glucose Gel 15 Gm Gel..Gram.) 15 gm PO Q15M PRN; Protocol PRN Reason: per Hypoglycemia Standing Ord. Heparin Sodium (Porcine) (Heparin Sodium,Porcine 5,000 Unit/Ml Vial) 3,600 unit 40 unit/kg (3600 unit) IVPUSH PROTOCOL BOLUS PRN; Protocol PRN Reason: 40 unit/kg - Heparin Protocol Last Admin: 01/11/25 08:36 Dose: 3,600 unit Documented By: BRIDGETTE Heparin Sodium (Porcine) (Heparin Sodium,Porcine 5,000 Unit/Ml Vial) 7,100 unit 80 unit/kg (7100 unit) IVPUSH PROTOCOL BOLUS PRN; Protocol PRN Reason: 80 unit/kg - Heparin Protocol Heparin Sodium/Sodium Chloride (Heparin Sodium,Porcine/1/2ns) 25,000 unit in 250 mls @ 0 mls/hr IVCONT .Q0M [facility]; Protocol Last Titration: 01/11/25 08:36 Dose: 10 units/kg/hr, 8.93 mls/hr Documented By: BRIDGETTE Co-signed By: GALINA Insulin Glargine (Insulin Glargine,Hum.Rec.Anlog 100 Unit/Ml 10 Ml Vial) 35 unit SUBCUT BEDTIME [facility] Last Admin: 01/10/25 21:53 Dose: 35 unit Documented By: SATHISH Insulin Human Lispro (Insulin Lispro 100 Unit/Ml 3 Ml Vial) 0 unit SUBCUT QIDACHS [facility]; Protocol Last Admin: 01/11/25 11:43 Dose: 2 unit Documented By: BRIDGETTE Lisinopril (Lisinopril 20 Mg Tablet) 20 mg PO DAILY [facility]; Protocol Last Admin: 01/11/25 07:46 Dose: 20 mg Documented By: BRIDGETTE Magnesium Hydroxide (Milk Of Magnesia 30 Ml Oral.Susp) 30 ml PO DAILY PRN PRN Reason: Constipation Melatonin (Melatonin 3 Mg Tablet) 6 mg PO BEDTIME PRN PRN Reason: Insomnia Morphine Sulfate (Morphine Sulfate 4 Mg/Ml Cartridge) 2 mg IVPUSH Q4H PRN; Protocol PRN Reason: Pain, Severe (Pain Scale 7-10) Oxycodone HCl (Oxycodone Hcl Immed Release 5 Mg Tablet) 5 mg PO Q6H PRN PRN Reason: Pain, Moderate(Pain Scale 4-6) Sodium Chloride (0.9 % Sodium Chloride Flush 3 Ml Syringe) [facility] Last Admin: 01/11/25 07:47 Dose: 3 ml Documented By: BRIDGETTE Labs 01/11/25 07:41 01/11/25 07:40 Labs: Laboratory Results - last 24 hr 01/10/25 01/10/25 01/10/25 15:39 16:13 21:04 MCV MCH MCHC RDW Plt Count MPV Absolute Nucleated RBC Nucleated RBC % (auto) aPTT Heparin Protocol 43.2 L D Anion Gap Estim Creat Clear Calc Estimated GFR POC Glucose 206 H 168 H Random Glucose Calcium 01/10/25 01/11/25 01/11/25 23:19 00:53 07:34 MCV MCH MCHC RDW Plt Count MPV Absolute Nucleated RBC Nucleated RBC % (auto) aPTT Heparin Protocol 112.3 H* D 63.5 D Anion Gap Estim Creat Clear Calc Estimated GFR POC Glucose 84 Random Glucose Calcium 01/11/25 01/11/25 01/11/25 07:40 07:41 11:13 MCV 92.6 MCH 30.3 MCHC 32.7 RDW 14.6 Plt Count 141 L MPV 10.8 Absolute Nucleated RBC 0.000 Nucleated RBC % (auto) 0.0 aPTT Heparin Protocol 42.0 L D Anion Gap 14 Estim Creat Clear Calc 86.7 Estimated GFR > 60 POC Glucose 157 H Random Glucose 87 Calcium 9.6 Assessment and Plan (1) Pulmonary embolism: Status: Acute (2) Deep vein thrombosis of lower extremity: Status: Acute Plan This is a 64-year-old male with a history of IDDM, chronic back pain, lumbosacral spondylosis, peripheral neuropathy, HTN, HLD with chronic right leg pain stemming from right TKA in July, seen in the outpatient clinic and found to have extensive DVT sent to the emergency department and found to have b/l PE acute extensive RLE DVT and b/l PE BNP, trop negative no sign of right heart strain pt with right knee arthroplasty 5 months ago continue heparin drip - close monitoring for bleeding, follow CBC H&H stable today vascular surgery consulted, plan on RLE mechanical venous thrombectomy on Friday 01/12 NPO after midnight IDDM hold semaglutide continue dose adjusted lantus, and titrate up as needed SSI, POCs, ADA diet HLD continue statin HTN continue lisinopril dvt ppx - heparin Pt requires continued hospitalization as he is still on a heparin drip for save DVT and bilateral PE. Pt will undergo lower extremity thrombectomy tomorrow. Quality Stroke Does the patient have a stroke diagnosis?: No VTE Prior VTE?: No VTE Risk Level:: Medical - moderate - high VTE Device Contraindication: Treatment Not Indicated VTE Drug Contraindication: N/A - Med Ordered
[2025-01-11 15:22] LABS: PTT Heparin Drip 57.1 SEC (53-77.9)
[2025-01-11 16:27] LABS: Glucose, Whole Blood 168 mg/dL (60-115)
[2025-01-11 21:17] LABS: PTT Heparin Drip 46.1 SEC (53-77.9)
[2025-01-11 21:57] LABS: Glucose, Whole Blood 317 mg/dL (60-115)
[2025-01-11] MEDS: Insulin Glargine,Hum.rec.anlog 100 UNIT/ML 10 ML VIAL 35 UNIT SUBCUT (22:09)
[2025-01-12] VITALS (22 sets, daily range): BP systolic 100–139; BP diastolic 63–91; PULSE 72–97; RESP 10–20; TEMP 36.1–37.1; O2SAT 94–98
[2025-01-12] MEDS: Heparin Sodium,Porcine/1/2NS 25,000 UNIT/250 ML IV.SOLN 10.72 UNIT IVCONT (01:55)
[2025-01-12 04:02] LABS: PTT Heparin Drip 89.9 SEC (53-77.9)
[2025-01-12 07:17] LABS: Glucose, Whole Blood 92 mg/dL (60-115)
--- NOTE | 2025-01-12 07:32 | HO.PM.IMPN ---
Subjective Subjective Date of Service: 01/12/25 Interval History: Patient to undergo mechanical right lower extremity thrombectomy today at the bedside today during the interaction Review of Systems Review of Systems: Yes all other systems are reviewed and are negative Physical Exam Exam: Exam: General: AOx3, no acute distress Resp: CTA bilaterally CVS: S1, S2, RRR GI: +BS, NT, no distention Extremities: Bilateral lower extremities appear symmetric without significant edema. Right calf NT Vital Signs: Vital Signs: Last Vital Signs Temp 97.0 F 01/12/25 04:00 Pulse 78 01/12/25 04:00 Resp 18 01/12/25 04:00 BP 122/69 01/12/25 04:00 Pulse Ox 98 01/12/25 04:00 O2 Del Method Room Air 01/12/25 04:00 BMI result Body Mass Index 32.0 Objective Data Active Medications Acetaminophen (Acetaminophen 325 Mg Tablet) 650 mg PO Q6H PRN PRN Reason: Pain, Mild 1-3,fever,headache Last Admin: 01/10/25 16:26 Dose: 650 mg Documented By: BRIDGETTE Atorvastatin Calcium (Atorvastatin Calcium 40 Mg Tablet) 40 mg PO DAILY [facility] Last Admin: 01/11/25 07:46 Dose: 40 mg Documented By: BRIDGETTE Calcium Carbonate (Calcium Carbonate 750 Mg Tab.Chew) 750 mg PO Q4H PRN PRN Reason: Heartburn Dextrose (Dextrose 50 % 25 Gm/50 Ml Syringe) 25 gm IVPUSH Q15M PRN; Protocol PRN Reason: per Hypoglycemia Standing Ord. Gabapentin (Gabapentin 300 Mg Capsule) 300 mg PO TID [facility] Last Admin: 01/11/25 22:09 Dose: 300 mg Documented By: FLORENCE Glucose (Glucose Gel 15 Gm Gel..Gram.) 15 gm PO Q15M PRN; Protocol PRN Reason: per Hypoglycemia Standing Ord. Heparin Sodium (Porcine) (Heparin Sodium,Porcine 5,000 Unit/Ml Vial) 3,600 unit 40 unit/kg (3600 unit) IVPUSH PROTOCOL BOLUS PRN; Protocol PRN Reason: 40 unit/kg - Heparin Protocol Last Admin: 01/11/25 21:53 Dose: 3,600 unit Documented By: FLORENCE Heparin Sodium (Porcine) (Heparin Sodium,Porcine 5,000 Unit/Ml Vial) 7,100 unit 80 unit/kg (7100 unit) IVPUSH PROTOCOL BOLUS PRN; Protocol PRN Reason: 80 unit/kg - Heparin Protocol Heparin Sodium/Sodium Chloride (Heparin Sodium,Porcine/1/2ns) 25,000 unit in 250 mls @ 0 mls/hr IVCONT .Q0M [facility]; Protocol Last Titration: 01/12/25 04:13 Dose: 10 units/kg/hr, 8.93 mls/hr Documented By: FLORENCE Co-signed By: SARAH Sodium Chloride (Ns) 1,000 mls @ 100 mls/hr IVCONT .Q10H [facility] Insulin Glargine (Insulin Glargine,Hum.Rec.Anlog 100 Unit/Ml 10 Ml Vial) 35 unit SUBCUT BEDTIME [facility] Last Admin: 01/11/25 22:09 Dose: 35 unit Documented By: FLORENCE Insulin Human Lispro (Insulin Lispro 100 Unit/Ml 3 Ml Vial) 0 unit SUBCUT QIDACHS [facility]; Protocol Last Admin: 01/11/25 22:09 Dose: 8 unit Documented By: FLORENCE Lisinopril (Lisinopril 20 Mg Tablet) 20 mg PO DAILY [facility]; Protocol Last Admin: 01/11/25 07:46 Dose: 20 mg Documented By: BRIDGETTE Magnesium Hydroxide (Milk Of Magnesia 30 Ml Oral.Susp) 30 ml PO DAILY PRN PRN Reason: Constipation Melatonin (Melatonin 3 Mg Tablet) 6 mg PO BEDTIME PRN PRN Reason: Insomnia Morphine Sulfate (Morphine Sulfate 4 Mg/Ml Cartridge) 2 mg IVPUSH Q4H PRN; Protocol PRN Reason: Pain, Severe (Pain Scale 7-10) Oxycodone HCl (Oxycodone Hcl Immed Release 5 Mg Tablet) 5 mg PO Q6H PRN PRN Reason: Pain, Moderate(Pain Scale 4-6) Sodium Chloride (0.9 % Sodium Chloride Flush 3 Ml Syringe) 3 ml IVFLUSH QSHIFT [facility] Last Admin: 01/12/25 01:04 Dose: Not Given Documented By: FLORENCE Non-Admin Reason: IV Running Labs 01/11/25 07:41 01/11/25 07:40 Labs: Laboratory Results - last 24 hr 01/11/25 01/11/25 01/11/25 07:34 07:40 07:41 MCV 92.6 MCH 30.3 MCHC 32.7 RDW 14.6 Plt Count 141 L MPV 10.8 Absolute Nucleated RBC 0.000 Nucleated RBC % (auto) 0.0 aPTT Heparin Protocol 42.0 L D Anion Gap 14 Estim Creat Clear Calc 86.7 Estimated GFR > 60 POC Glucose 84 Random Glucose 87 Calcium 9.6 01/11/25 01/11/25 01/11/25 11:13 14:50 15:44 MCV MCH MCHC RDW Plt Count MPV Absolute Nucleated RBC Nucleated RBC % (auto) aPTT Heparin Protocol 57.1 D Anion Gap Estim Creat Clear Calc Estimated GFR POC Glucose 157 H 168 H Random Glucose Calcium 01/11/25 01/11/25 01/12/25 20:45 21:15 03:45 MCV MCH MCHC RDW Plt Count MPV Absolute Nucleated RBC Nucleated RBC % (auto) aPTT Heparin Protocol 46.1 L 89.9 H D Anion Gap Estim Creat Clear Calc Estimated GFR POC Glucose 317 H Random Glucose Calcium 01/12/25 07:10 MCV MCH MCHC RDW Plt Count MPV Absolute Nucleated RBC Nucleated RBC % (auto) aPTT Heparin Protocol Anion Gap Estim Creat Clear Calc Estimated GFR POC Glucose 92 Random Glucose Calcium Assessment and Plan (1) Pulmonary embolism: Status: Acute (2) Deep vein thrombosis of lower extremity: Status: Acute Plan This is a 64-year-old male with a history of IDDM, chronic back pain, lumbosacral spondylosis, peripheral neuropathy, HTN, HLD with chronic right leg pain stemming from right TKA in July, seen in the outpatient clinic and found to have extensive DVT sent to the emergency department and found to have b/l PE and RLE Acute extensive RLE DVT and b/l PE likely provoked- s/p mechanical thrombectomy right lower extremity Patient was initiated on heparin drip, underwent thrombectomy on 01/12/2025 without BNP, trop negative no sign of right heart strain pt with right knee arthroplasty 5 months ago continue heparin drip until thrombectomy - close monitoring for bleeding, follow CBC , will switch to OAC tomorrow H&H stable today vascular surgery following, plan on RLE mechanical venous thrombectomy on today 01/12 resume diet post surgery if stable post op IDDM hold semaglutide continue dose adjusted lantus, and titrate up as needed SSI, POCs, ADA diet HLD continue statin HTN continue lisinopril dvt ppx - heparin drip Pt requires continued hospitalization as he will undergo lower extremity thrombectomy today and transition to OAC /lovenox tomorrow. This note is constructed using voice recognition software. While every effort has been made to ensure accuracy, folder operator errors may have been included. Quality Stroke Does the patient have a stroke diagnosis?: No VTE Prior VTE?: No VTE Risk Level:: Medical - moderate - high VTE Device Contraindication: Treatment Not Indicated VTE Drug Contraindication: N/A - Med Ordered
[2025-01-12] MEDS: 0.9 % Sodium Chloride Flush 3 ML SYRINGE IVFLUSH ×2 (09:27→16:45)
--- NOTE | 2025-01-12 10:17 | MHC.CM.PN ---
Per ROUNDS discussion, Patient is not yet medically cleared for dc (Thrombectomy today); home is the goal and CM will continue to follow.
[2025-01-12 10:33] LABS: PTT Heparin Drip 64.2 SEC (53-77.9)
[2025-01-12 11:47] LABS: Glucose, Whole Blood 89 mg/dL (60-115)
--- NOTE | 2025-01-12 12:10 | PC.NURSE ---
pt to pre op by bed with transporter
[2025-01-12] MEDS: Heparin Sodium,Porcine 10,000 UNIT/10 ML VIAL 7000 UNIT IVPUSH (13:50)
--- NOTE | 2025-01-12 14:30 | W.PM.OPN ---
Operative Note Operative Note Date of Service: 01/12/25 Narrative: Operative note by [facility] Preoperative diagnosis: Deep venous thrombosis of right lower extremity Postoperative diagnosis: Same Procedure: 1 Ultrasound-guided right popliteal vein access 2. Inferior vena cavogram 3. Percutaneous transluminal venous mechanical thrombectomy (90540) 4. Radiologic super visual and interpretation Surgeon:Fernando Brito M.D. Animal Biologist: None Anesthesia: Local with moderate conscious sedation. Total intra service moderate sedation time was 50 minutes. I monitored the patient's level of consciousness and physiologic status continuously throughout the procedure Specimen: None Drains: None Estimated blood loss: 50 mL Radiation dose: 127.8 mGy Implant: None Comorbid conditions: Pulmonary embolism, sacroiliac joint pain, lumbar degenerative disc disease, spinal stenosis, obesity, back pain, recent knee surgery, hypertension, diabetes Indications: 64-year-old gentleman who had undergone right side total knee arthroplasty a proximally 5 months prior had continued pain and swelling had worsened over the last week or so. On ultrasound CT scan was discovered to have DVT with PE. The plan of care is mechanical thrombectomy of the lower extremity veins. The patient has signed the informed consent after reviewing risks, complications, benefits, and alternatives previously discussed with the patient. The patient was given the opportunity to ask any additional questions or voice any concerns. All questions were answered to the patient's satisfaction. Procedure in detail: Patient was brought to the Angiography suite prior to which a time-out was called for patient identification and site verification. The patient was placed in a prone position. Bilateral popliteal fossas were prepped out. We first access the right popliteal vein under ultrasound guidance. We then placed a percutaneous 5 Hebrew sheath. We were then able to traverse the clot with a Glidewire Advantage 035 wire. We brought in a trail Blazer catheter to confirmed true lumen. At this time 7000 units of heparin was administered. After 5 minutes of circulation time we then dilated up the tract. The 16 Hebrew Clot Triever bold over the wire system was then brought into position. We placed the clot triever sheath and exposed the self expanding Nitinol mesh funnel to facilitate clot removal for large-bore side port rapid aspiration. Once this was accomplished we then advanced over the wire the clot triever catheter with the coring element and braided collection bag. This was brought into the inferior vena cava up past this occlusion and extracted back. We did 4 sequential passes. The main angle of the catheter was placed at the 12:00 o'clock, 03:00 o'clock, 06:00 o'clock, and 09:00 o'clock positions. After each pass had been completed, large amount of clot was removed. After each subsequent pass the clot was removed and it was flushed clear and we then brought it in again through this area. Completion venogram demonstrated an excellent result. We subsequently removed catheter wire in sheath. Pursestring suture was placed Sterile dressing was applied. Patient was brought to the recovery room with stable vitals. Interpretation of films: 1. Ultrasound was used to evaluate access site. Popliteal vein did note to have thrombus. Ultrasound was used to visualize needle entry. Image of ultrasound was saved on PACS 2. Vena cavogram demonstrated thrombus in the distal vena cava along the end attire iliofemoral system down into the popliteal vein. 3. Completion vena cavogram demonstrated resolution of clot. Conclusion: 1. Successful mechanical clot removal. 2. Anticoagulation status: Resume heparin drip in PACU. Tomorrow may start oral anticoagulation. This note is constructed using voice recognition software. While every effort has been made to ensure accuracy, shopper marketing manager errors may have been included. Thank you for allowing me to participate in the care of your patient. Yours sincerely, Fernando Brito MD, FACS, R.P.V.I.
[2025-01-12] MEDS: Heparin Sodium,Porcine/1/2NS 25,000 UNIT/250 ML IV.SOLN 8.93 UNIT IVCONT (14:46)
[2025-01-12 15:49] LABS: Glucose, Whole Blood 80 mg/dL (60-115)
--- NOTE | 2025-01-12 19:37 | PC.NURSE ---
Shagufta ordered by Dr Oneill , heparin drip was dc'd as per protocol , This RN verified with pharmacist about PTT-HD blood work and PTT HD was dc'd for 20:46 . Pt no longer on heparin drip
[2025-01-12 20:35] LABS: Glucose, Whole Blood 304 mg/dL (60-115)
[2025-01-12] MEDS: oxyCODONE HCl Immed Release 5 MG TABLET PO (21:29)
[2025-01-12] MEDS: Insulin Glargine,Hum.rec.anlog 100 UNIT/ML 10 ML VIAL 35 UNIT SUBCUT (21:32)
[2025-01-13] VITALS: BP 117/62; PULSE 84; RESP 18; TEMP 36.8; O2SAT 96
[2025-01-13 03:34] VITALS: BP 101/66; PULSE 81; RESP 18; TEMP 36.3; O2SAT 96
[2025-01-13] MEDS: oxyCODONE HCl Immed Release 5 MG TABLET PO (06:11)
--- NOTE | 2025-01-13 07:14 | HO.PM.IMPN ---
Subjective Subjective Date of Service: 01/13/25 Physical Exam Vital Signs: Vital Signs: Last Vital Signs Temp 97.4 F 01/13/25 03:34 Pulse 81 01/13/25 03:34 Resp 18 01/13/25 03:34 BP 101/66 01/13/25 03:34 Pulse Ox 96 01/13/25 03:34 O2 Del Method Room Air 01/13/25 03:34 O2 Flow Rate 2 01/12/25 14:55 BMI result Body Mass Index 32.0 Objective Data Active Medications Acetaminophen (Acetaminophen 325 Mg Tablet) 650 mg PO Q6H PRN PRN Reason: Pain, Mild 1-3,fever,headache Last Admin: 01/12/25 09:36 Dose: 650 mg Documented By: DAVID Apixaban (Apixaban 5 Mg Tablet) 10 mg PO BID [facility] Stop: 01/19/25 09:01 Last Admin: 01/12/25 21:29 Dose: 10 mg Documented By: FLORENCE Apixaban (Apixaban 5 Mg Tablet) 5 mg PO BID [facility] Atorvastatin Calcium (Atorvastatin Calcium 40 Mg Tablet) 40 mg PO DAILY [facility] Last Admin: 01/12/25 16:44 Dose: 40 mg Documented By: DAVID Calcium Carbonate (Calcium Carbonate 750 Mg Tab.Chew) 750 mg PO Q4H PRN PRN Reason: Heartburn Dextrose (Dextrose 50 % 25 Gm/50 Ml Syringe) 25 gm IVPUSH Q15M PRN; Protocol PRN Reason: per Hypoglycemia Standing Ord. Gabapentin (Gabapentin 300 Mg Capsule) 300 mg PO TID [facility] Last Admin: 01/12/25 21:29 Dose: 300 mg Documented By: FLORENCE Glucose (Glucose Gel 15 Gm Gel..Gram.) 15 gm PO Q15M PRN; Protocol PRN Reason: per Hypoglycemia Standing Ord. Sodium Chloride (Ns) 1,000 mls @ 100 mls/hr IVCONT .Q10H [facility] Last Admin: 01/13/25 06:26 Dose: Not Given Documented By: FLORENCE Non-Admin Reason: IV Running Insulin Glargine (Insulin Glargine,Hum.Rec.Anlog 100 Unit/Ml 10 Ml Vial) 35 unit SUBCUT BEDTIME [facility] Last Admin: 01/12/25 21:32 Dose: 35 unit Documented By: FLORENCE Insulin Human Lispro (Insulin Lispro 100 Unit/Ml 3 Ml Vial) 0 unit SUBCUT QIDACHS [facility]; Protocol Last Admin: 01/12/25 21:33 Dose: 8 unit Documented By: FLORENCE Lisinopril (Lisinopril 20 Mg Tablet) 20 mg PO DAILY [facility]; Protocol Last Admin: 01/12/25 09:25 Dose: 20 mg Documented By: DAVID Magnesium Hydroxide (Milk Of Magnesia 30 Ml Oral.Susp) 30 ml PO DAILY PRN PRN Reason: Constipation Melatonin (Melatonin 3 Mg Tablet) 6 mg PO BEDTIME PRN PRN Reason: Insomnia Morphine Sulfate (Morphine Sulfate 4 Mg/Ml Cartridge) 2 mg IVPUSH Q4H PRN; Protocol PRN Reason: Pain, Severe (Pain Scale 7-10) Oxycodone HCl (Oxycodone Hcl Immed Release 5 Mg Tablet) 5 mg PO Q6H PRN PRN Reason: Pain, Moderate(Pain Scale 4-6) Last Admin: 01/13/25 06:11 Dose: 5 mg Documented By: FLORENCE Sodium Chloride (0.9 % Sodium Chloride Flush 3 Ml Syringe) [facility] Last Admin: 01/13/25 03:12 Dose: Not Given Documented By: FLORENCE Non-Admin Reason: IV Running Labs 01/11/25 07:41 01/11/25 07:40 Labs: Laboratory Results - last 24 hr 01/12/25 01/12/25 01/12/25 07:10 10:16 10:21 Hold Purple Top SEE NOTE aPTT Heparin Protocol 64.2 D POC Glucose 92 01/12/25 01/12/25 01/12/25 11:29 15:46 20:31 Hold Purple Top aPTT Heparin Protocol POC Glucose 89 80 304 H Quality Stroke Does the patient have a stroke diagnosis?: No VTE Prior VTE?: No VTE Risk Level:: Medical - moderate - high VTE Device Contraindication: Treatment Not Indicated VTE Drug Contraindication: N/A - Med Ordered
[2025-01-13 07:23] VITALS: BP 122/86; PULSE 84; RESP 16; TEMP 36.7; O2SAT 96
[2025-01-13 08:04] LABS: Glucose, Whole Blood 151 mg/dL (60-115)
[2025-01-13 10:08] LABS: ACT 211 Celite s (79-173)
[2025-01-13 10:08] LABS: ACT 118 Celite s (79-173)
--- NOTE | 2025-01-13 10:58 | P.PNVS_ITS ---
Subjective Subjective Date of Service: 01/13/25 Patient reports: no new complaints and feels better Interval history: Patient seen and examined. Postop day 1 status post right lower extremity mechanical venous thrombectomy of DVT. He appears to be doing significantly better. States that the leg feels much better. He does have some balance issues but other than that reports that he is doing better postprocedure. Physical Exam Vital Signs: Vital Signs: Last Vital Signs Temp 98.1 F 01/13/25 07:23 Pulse 84 01/13/25 07:23 Resp 16 01/13/25 07:23 BP 122/86 01/13/25 07:23 Pulse Ox 96 01/13/25 07:23 O2 Del Method Room Air 01/13/25 07:23 O2 Flow Rate 2 01/12/25 14:55 BMI result Body Mass Index 32.0 Const: General: cooperative, healthy appearing and comfortable Orientation/consciousness: oriented to person, oriented to place and oriented to time HEENT: Head: Yes normal to inspection Neck: Neck: Yes normal visual inspection Carotids: no bruits Chest: Chest palpation & inspection: normal inspection of the chest Resp: Effort & Inspection: normal respiratory effort and able to speak in complete sentences Auscultation: clear to auscultation bilaterally, no crackl es, no rales, no rhonchi and no wheezes Cardio: Rate: regular rate Rhythm: regular rhythm Heart sounds: S1 normal heart sound present and S2 normal heart sound present Bruits: no carotid bruits Peripheral pulses: Peripheral pulses 2+ throughout GI: Inspection: Yes normal to inspection Skin: Wounds: no wounds Hair: normal Neuro: General: oriented to person, oriented to place and oriented to time Cranial nerves: Yes CN's II-XII intact bilaterally and Yes Normal hearing present Cognition (Neuro): normal cognition Motor exam (neuro): 5/5 motor strength present throughout Extrem: Other: venous exam: No significant superficial varicosities or spider telangiectasias, minimal edema General: No clubbing, No cyanosis and No edema Psych: Appearance: grossly normal Mental Status: mental status grossly normal Speech and movement: Normal speech and movement present Progress Note: A&P Assessment and plan (1) Deep vein thrombosis of lower extremity: Status: Acute Assessment and Plan: Doing well status post mechanical venous thrombectomy. He has already been transition to p.o. anticoagulation of Eliquis. I did reinforce the importance of being compliant with this as he does have a DVT and PE. He can follow up with us in approximately 2 weeks time upon discharge for suture removal. Thank you for allowing us to assist in his care. (2) Pulmonary embolism: Status: Acute Time Spent With Patient Time: Total time managing care of this patient today ____ minutes. Procedures Date of Service Date of Service: 01/13/25 Quality Stroke Does the patient have a stroke diagnosis?: No VTE Prior VTE?: No VTE Risk Level:: Medical - moderate - high VTE Device Contraindication: Treatment Not Indicated VTE Drug Contraindication: N/A - Med Ordered
[2025-01-13 11:11] LABS: Glucose, Whole Blood 222 mg/dL (60-115)
[2025-01-13 11:42] VITALS: BP 136/75; PULSE 84; RESP 16; TEMP 36.9; O2SAT 97
--- NOTE | 2025-01-13 12:43 | PM.DS ---
DS: Providers Provider Date of Service: 01/13/25 Date of admission: 01/09/25 15:49 Date of discharge: 01/13/25 Primary care physician: Primo Blanchard MD Consults: 01/09/25 16:29 Consult to Vascular Surgery Routine Consulting Provider: [facility] Vascular Services Reason for consultation: extensive DVT, b/l PE Has provider been notified: No DS: Diagnosis Discharge Diagnosis (1) Deep vein thrombosis of lower extremity: Status: Acute (2) Pulmonary embolism: Status: Acute DS: Summary Hospital Course Hospital Course: Acute extensive RLE DVT and b/l PE likely provoked- s/p mechanical thrombectomy (01/12/25) right lower extremity- started on Eliquis F/up with Vascular surgery in 2 weeks This is a 64-year-old male with a history of IDDM, chronic back pain, lumbosacral spondylosis, peripheral neuropathy, HTN, HLD with chronic right leg pain stemming from right TKA in July, seen in the outpatient clinic and found to have extensive DVT sent to the emergency department and found to have b/l PE and RLE Acute extensive RLE DVT and b/l PE likely provoked- s/p mechanical thrombectomy (01/12/25) right lower extremity Patient was initiated on heparin drip, underwent thrombectomy on 01/12/2025 For anticoagulation noted on therapeutic Eliquis 10 mg p.o. b.i.d. for 6 more days (received 1 day while inpatient), followed by 5 mg p.o. b.i.d. indefinitely or until cleared by vascular surgery PE Patient's presentation and imaging was also significant for acute PE, likely in the setting of DVT, likely provoked (immobility status post arthroplasty) BNP, trop negative no sign of right heart strain pt with right knee arthroplasty 5 months ago Patient to continue anticoagulation as listed above for PE and follow up with PCP/pulmonology outpatient for resolution. IDDM- was maintained on insulin sliding scale while inpatient, up titrated as needed. HLD continue statin HTN continue lisinopril dvt ppx - heparin drip followed by Eliquis while inpatient This note is constructed using voice recognition software. While every effort has been made to ensure accuracy, regional sales coordinator errors may have been included. Patient was evaluated by PT Time spent discussing smoking cessation with patient: more than 10 minutes Status at Discharge Functional status at discharge: independent ambulation Overall status at discharge: patient is back to baseline Time Attestation Discharge Coordination Time (in mins): 55 Quality: Safe Use of Opioids Does Pt have an Active Cancer Diagnosis on the Problem List?: No Quality: Stroke Does the patient have a stroke diagnosis?: No Physical Exam Exam: Exam: General: AOx3, no acute distress Resp: CTA bilaterally CVS: S1, S2, RRR GI: +BS, NT, no distention Extremities: Bilateral lower extremities appear symmetric without significant edema. Right calf NT Vital Signs: Vital Signs: Last Vital Signs Temp 98.4 F 01/13/25 11:42 Pulse 84 01/13/25 11:42 Resp 16 01/13/25 11:42 BP 136/75 01/13/25 11:42 Pulse Ox 97 01/13/25 11:42 O2 Del Method Room Air 01/13/25 11:42 O2 Flow Rate 2 01/12/25 14:55 BMI result Body Mass Index 32.0 DS: Data Data Completed and Pending Labs on day of discharge: Laboratory Results - last 24 hr 01/12/25 01/12/25 01/12/25 09:49 13:47 15:46 Activated Clotting Time 211 H 118 POC Glucose 80 01/12/25 01/13/25 01/13/25 20:31 07:57 10:50 Activated Clotting Time POC Glucose 304 H 151 H 222 H Discharge Plan Discharge Anticipated Discharge Date/Time: 01/13/25 14:37 Patient Disposition: Home, Self-Care Discharge Diagnosis: Right DVT, PE, s/p thrombectomy and placed on Eliquis Referrals: Primo Blanchard MD [Primary Care Provider, Internal Medicine] - 1 Week Fernando Brito MD [Physician, Vascular Surgery] - 2 Weeks Referral Note: PLEASE CONTACT DR. BRITO'S OFFICE FOR FOLLOW UP W/YOUR PE/DVT AND THROMBECTOMY. Discharge Medications: New Eliquis 5 mg Tablet 10 mg PO BID 6 Days Qty: 24 0RF Rx Instructions: Please take until 2024 Eliquis 5 mg Tablet 5 mg PO BID 30 Days Qty: 60 3RF Continued insulin glargine [Lantus Solostar U-100 Insulin] 100 unit/mL (3 mL) insulin pen 54 unit subcut BEDTIME Qty: 15 3RF insulin lispro [Admelog SoloStar U-100 Insulin] 100 unit/mL insulin pen 1 sliding scale dose subcut USEASDIRECTD Qty: 15 3RF (DME) Diabetic shoes See Rx Instructions .Route .MEDSUPPLY Qty: 1 0RF Rx Instructions: Please dispense diabetic shoes with 3 pairs of custom molded inserts. Ozempic 2 mg/dose (8 mg/3 mL) pen injector 2 mg subcut FR atorvastatin 40 mg tablet 40 mg PO DAILY (DME) OneTouch Ultra Test Strip See Rx Instructions .ROUTE TID Qty: 10 Rx Instructions: As directed (DME) pen needle, diabetic [Ultra-Fine Pen Needle] 31 gauge x 5/16 needle See Rx Instructions .ROUTE .MEDSUPPLY Qty: 1200 Rx Instructions: As directed (DME) lancets [OneTouch Delica Plus Lancet] 33 gauge misc See Rx Instructions .ROUTE TID Qty: 100 Rx Instructions: As directed (DME) blood-glucose meter [OneTouch Ultra2 Meter] Misc See Rx Instructions .ROUTE TID Qty: 1 Rx Instructions: As directed (DME) blood pressure monitor Kit See Rx Instructions .ROUTE .MEDSUPPLY Qty: 1 0RF Rx Instructions: As directed lisinopril 20 mg tablet 20 mg PO DAILY Qty: 90 0RF acetaminophen 650 mg tablet extended release 650 mg PO Q12H Qty: 90 0RF gabapentin 300 mg capsule 300 mg PO TID Qty: 360 0RF Discharge Orders: Discharge Order (Routine); Ordered 01/13/25 Ordered By: Rosalba Oneill Diet: Low salt diet Activity on Discharge: As tolerated Stand Alone Forms: Patient Portal Discharge page Print Language: Japanese Activity Restrictions/Additional Instructions: Suture was removed was used and you may shower as early as tomorrow. You may climb a flight of stairs as tolerated See Dr. Brito in follow-up in approximately 2 weeks time for suture removal. You should already have an appointment if not please call my office at [phone] If you notice excessive leg behind knee from the groin please immediately call my office or return to the emergency room. Care Plan Goals: Follow-up with vascular surgery outpatient Follow up with outpatient PT as you were doing, our inpatient PT also recommended the same If you have any questions-call Dr. Alisha's office Follow up with your PCP within a week after discharge Health Concerns: See above Plan of Treatment: See above Assessment: See above
--- NOTE | 2025-01-13 14:49 | MHC.CM.PN ---
Addendum entered by Sarah Nash 01/13/25 14:55: IMM was addressed with Patient at bedside; his Girlfriend will transport to home. Original Note: Patient has been medically cleared for dc to home today, self care.
== END 2025-01-13 15:35 | disposition home or self-care (01) | DRG 270 ==
LOC: HO.ED 15:45 → HO.EDOVER 15:52 → HO.IMC 17:28
PROVIDERS: Hospitalist; Internal Medicine; Physician Assistant; Physician Assistant Medical; Student in an Organized Health Care Education/Training Program; Surgery Vascular Surgery; Admitting Provider Physician Assistant Medical; Emergency Provider Emergency Medicine Emergency Medical Services; PCP Student in an Organized Health Care Education/Training Program; Visit Provider Student in an Organized Health Care Education/Training Program
PROC: 06CY3ZZ Extirpation of Matter from Lower Vein, Percutaneous Approach (ICD-10-PCS; principal; 2025-01-12 13:00)
DX: I82.411 Acute embolism and thrombosis of right femoral vein (principal); I26.99 Other pulmonary embolism without acute cor pulmonale; E78.5 Hyperlipidemia, unspecified; I82.431 Acute embolism and thrombosis of right popliteal vein; I82.451 Acute embolism and thrombosis of right peroneal vein; I82.441 Acute embolism and thrombosis of right tibial vein; I10 Essential (primary) hypertension; E11.42 Type 2 diabetes mellitus with diabetic polyneuropathy; E66.9 Obesity, unspecified; Z68.32 Body mass index [BMI] 32.0-32.9, adult; Z96.651 Presence of right artificial knee joint; Z79.4 Long term (current) use of insulin; Z79.899 Other long term (current) drug therapy
CPT/HCPCS: 36415; 37187; 71275; 74177; 76937; 80048; 80076; 82947; 83880; 84484; 85025; 85027; 85347; 85610; 85730; 93005; 93971; 97161; 99152; 99153; 99285; C1757; C1769; C1887; C1894; J1644; J2003; J2250; J3010; Q9967

== ENCOUNTER → 2025-01-09 12:09 | Outpatient (BNV) | payer MEDICARE, MEDICAID, SELFPAY | PROVIDERS: Admitting Provider Physician Assistant Medical; Emergency Provider Emergency Medicine Emergency Medical Services; PCP Student in an Organized Health Care Education/Training Program; Visit Provider Internal Medicine Cardiovascular Disease | DX: I49.9 Cardiac arrhythmia, unspecified (principal); I49.3 Ventricular premature depolarization | CPT/HCPCS: 93010 ==

== ENCOUNTER → 2025-01-09 15:49 | Outpatient (BNV) | payer MEDICARE, MEDICAID, SELFPAY | PROVIDERS: Admitting Provider Physician Assistant Medical; Emergency Provider Emergency Medicine Emergency Medical Services; PCP Student in an Organized Health Care Education/Training Program; Visit Provider Surgery Vascular Surgery | DX: I82.411 Acute embolism and thrombosis of right femoral vein (principal); I26.99 Other pulmonary embolism without acute cor pulmonale | CPT/HCPCS: 36012; 37187; 75825; 76937; 99152; 99222; 99232 ==

== ENCOUNTER → 2025-01-09 15:49 | Outpatient (BNV) | payer MEDICARE, MEDICAID, SELFPAY | PROVIDERS: Admitting Provider Physician Assistant Medical; Emergency Provider Emergency Medicine Emergency Medical Services; PCP Student in an Organized Health Care Education/Training Program; Visit Provider Physician Assistant Medical | DX: I82.409 Acute embolism and thrombosis of unspecified deep veins of unspecified lower extremity (principal); I26.99 Other pulmonary embolism without acute cor pulmonale | CPT/HCPCS: 99223; 99233 ==

== ENCOUNTER 2025-01-27 08:47 | Outpatient (AMB) | payer MEDICARE, MEDICAID, SELFPAY ==
--- NOTE | 2025-01-27 09:04 | MHC.OFFVIS ---
Intake Visit Reasons: 2 week follow up s/p Thrombectomy 01/13/25 Intake Note: 2 week follow up s/p Right thrombectomy 01/12/25. Accompanied by: Self / Same As Patient Allergies No Known Allergies Allergy (Verified 01/27/25 09:07) HPI HPI 2 week follow up s/p Thrombectomy 01/13/25: Details: The patient is a 64 year old individual presenting with a 2-week follow-up visit status post right femoral mechanical venous thrombectomy. The procedure was performed on 01/12/2025. The patient reports feeling significantly better overall and that the pain from the suture site had resolved prior to today's visit. Now for routine postprocedure follow-up [facility] Medical History Insulin dependent type 2 diabetes mellitus Hypertension GERD (gastroesophageal reflux disease) Obesity, Class I, BMI 30-34.9 Osteoarthritis of right knee Surgical History History of arthroplasty of right knee Family History Father Heart attack Mother Heart attack Social History Household Members: Spouse and Children Housing: Apartment Alcohol intake: current Alcohol intake frequency: does not drink Patient Tobacco Use Status: Never used Tobacco service: No Current occupational status: disabled Cognitive needs: Yes (cane and walker) Hearing needs: No Vision needs: Yes (reading glasses) Review of Systems Const All systems reviewed & are unremarkable except as noted in HPI and below Reports no additional complaints ENT Reports Normal hearing present Card Denies chest pain, Denies chest pain at rest, Denies chest pain with activity and Denies pedal edema Resp Denies cough GI Denies abdominal pain Musc Denies abnormal gait, Denies muscle cramps and Denies radiating pain into limb Skin/Breast Denies skin ulcer and Denies wounds Neuro Reports Normal hearing present and Denies abnormal gait Psych Reports no additional complaints Physical Exam Const General: cooperative, healthy appearing and comfortable Orientation/consciousness: oriented to person, oriented to place and oriented to time HEENT Head: Yes normal to inspection Neck Neck: Yes normal visual inspection Carotids: no bruits Chest Chest palpation & inspection: normal inspection of the chest Resp Effort & Inspection: normal respiratory effort and able to speak in complete sentences Auscultation: clear to auscultation bilaterally, no crackles, no rales, no rhonchi and no wheezes Cardio Rate: regular rate Rhythm: regular rhythm Heart sounds: S1 normal heart sound present and S2 normal heart sound present Bruits: no carotid bruits Peripheral pulses: Peripheral pulses 2+ throughout GI Inspection: Yes normal to inspection Skin Wounds: no wounds Hair: normal Neuro General: oriented to person, oriented to place and oriented to time Cranial nerves: Yes CN's II-XII intact bilaterally and Yes Normal hearing present Cognition (Neuro): normal cognition Motor exam (neuro): 5/5 motor strength present throughout Extrem Other: venous exam: +1 edema General: No clubbing, No cyanosis and Yes edema Psych Appearance: grossly normal Mental Status: mental status grossly normal Speech and movement: Normal speech and movement present Assessment & Plan Assessment & Plan (1) DVT (deep venous thrombosis): Code(s): I82.409 - Acute embolism and thrombosis of unspecified deep veins of unspecified lower extremity Category: Medical Qualifiers: DVT location: lower extremity Affected thrombotic vein of extremity: femoral Chronicity: acute Laterality: right Qualified Code(s): I82.411 - Acute embolism and thrombosis of right femoral vein Plan: I reviewed the patient's progress at this two-week follow-up after a right femoral mechanical venous thrombectomy. During the examination, I identified and removed a retained suture from the posterior aspect of the right leg. I provided the patient with educational materials regarding DVT and recommended the initiation of compression stockings for ongoing management, along with leg elevation and exercise. He will follow up with us on an as-needed basis. Thank you for allowing us to assist in his care. Plan Patient was informed and verbally consented to the use of an ambient scribe for clinic note documentation during this visit. Patient Instructions: - Please start wearing compression stockings on your leg. - continue anticoagulation orally - You received a booklet with information about your condition (DVT). Coding Level of Care Code Est Pt Level 3 (54449) Diagnoses Acute deep vein thrombosis (DVT) of femoral vein of right lower extremity I82.411 DVT location: lower extremity Affected thrombotic vein of extremity: femoral Chronicity: acute Laterality: right
--- OUTSIDE RECORDS SUMMARY | 2025-01-27 09:11 | XMS_ITS | Clinical Summary ---
Author Organization [facility] Address [address] [place] [phone] Phone Care Team Providers Care Technical Assistance Consultant Name Role Phone Compa Duenas NP Primary Care Provider [phone] Allergies No known active allergies Medications atorvastatin [...] Type 2 diabetes mellitus wit hout complications ([facility] V24, [facility] V28) DX:Type 2 evelyn betes mellitus without complications (HCC) Bilateral shoulder pain DX:Bilat eral shoulder pain Vitamin D deficiency DX:Vitamin D deficiency Right-sided low back pain wi th right-sided sciatica DX:Right-sided low back pain with right-sided sciatica Stage 3a chronic kidney dise ase (CKD) ([facility] V24, [facility] V28) DX:Stage 3a chronic kidney disease (CKD) ([facility]) Social History Tobacco Use Types Packs/Day Years [...] MEDICARE ADVANTAGE MEDICAID - [place] Care Teams Technical Assistance Consultant Relationship Specialty Start Date End Date Compa Duenas NP [address] [place] [address] PCP - General 03/21/22
== END 2025-01-27 09:30 | disposition home or self-care (01) ==
LOC: HO.HVS 08:48
PROVIDERS: PCP Student in an Organized Health Care Education/Training Program; Visit Provider Surgery Vascular Surgery
DX: I82.411 Acute embolism and thrombosis of right femoral vein (principal)
CPT/HCPCS: 99213

== ENCOUNTER → 2025-01-27 08:47 | Outpatient (BNVA) | payer MEDICARE, MEDICAID, SELFPAY | PROVIDERS: PCP Student in an Organized Health Care Education/Training Program; Visit Provider Surgery Vascular Surgery | DX: I82.411 Acute embolism and thrombosis of right femoral vein (principal); Z98.890 Other specified postprocedural states | CPT/HCPCS: 99212 ==

== ENCOUNTER 2025-02-02 09:38 | Outpatient (AMB) | payer MEDICARE, MEDICAID, SELFPAY ==
--- NOTE | 2025-02-02 09:49 | A.OFFVIS_ITS ---
Vital Signs 02/02/25 09:50 Height 5 ft 6 in Weight 199 lb BMI 32.1 Intake Visit Reasons: Diabetic shoes check Intake Note: Nish is a 64 year old male here for a follow up on his diabetic shoes. Patient was instructed to continue Capsaicin ointment and to obtain his x-rays. Patient was called on 01/27 to remind him about the x-rays. Patient reports he has not been able to obtain the diabetic shoes at this time. He is still having pain in feet and finds his left foot is more painful. He mentions he notices swelling in his right foot after his blood clot removal surgery. Allergies No Known Allergies Allergy (Verified 02/02/25 10:20) HPI HPI Diabetic shoes check: Details: 64-year-old male with past medical history of diabetes mellitus type 2 on insulin, GERD, lumbar radiculopathy with sciatica to the left lower extremity, status post right TKA, and obesity who returns for bilateral forefoot pain and diabetic shoes evaluation. The patient was recently admitted for a right leg DVT/PE diagnosed on 01/09/2025 and underwent thrombectomy. He states his calf pain has mostly resolved, he has some residual swelling that occurs depending on activity. He still complains of bilateral forefoot pain, left worse than right. He states he has not yet received the shoes and is due to pick them up within the next week or two. History: He states the pain has been present for over 1 year. He describes it as a burning and tingling sensation to the ball was foot over both feet, and wraps around the top of his foot to the right foot. The symptoms are worse during the nighttime. He finds relief when he takes muscle relaxants and when he rubs topical medication onto his feet. He also notices symptoms worsen when he is wearing tight shoe wear, and improves with open toe shoe wear. [facility] Medical History Insulin dependent type 2 diabetes mellitus Hypertension GERD (gastroesophageal reflux disease) Obesity, Class I, BMI 30-34.9 Osteoarthritis of right knee Surgical History History of arthroplasty of right knee Family History Father Heart attack Mother Heart attack Social History Household Members: Spouse and Children Housing: Apartment Alcohol intake: current Alcohol intake frequency: does not drink Patient Tobacco Use Status: Never used Tobacco service: No Current occupational status: disabled Cognitive needs: Yes (cane and walker) Hearing needs: No Vision needs: Yes (reading glasses) Review of Systems Const All systems reviewed & are unremarkable except as noted in HPI and below Physical Exam Vital Signs: BMI result Body Mass Index 32.1 Extrem Other: *Bilateral Lower Extremity Focused Diabetic Foot Exam Vascular: DP/PT 1/4 bilaterally, CFT<3s to digits, TG warm to cool, no pedal edema, pedal hair present Derm: Skin: No open lesions, ulcerations. Patient has a left foot plantar sub 1st metatarsal head hyperkeratotic lesion. Interdigital spaces: Clear, no maceration or fungal infection. Nails: No onychomycosis, paronychia, or ingrown nails. Neuro: Halliday-batsheva monofilament (10g) test 10/10 intact to right foot, 10/10 intact to left foot. Msk: Mild tenderness on palpation of the plantar sulcus of the 2nd and 3rd Metatarsal-phalangeal joint left foot. Negative Della's test. No pain on dorsiflexion of bilateral ankles, no pain along the Achilles tendon, no calf pain bilaterally. No pain to the plantar medial calcaneal tubercle. Mild flexion deformity of digits 1 through 5 bilaterally. Footwear Assessment: Shoes inspected; appropriate fit, no excessive wear, or foreign objects noted. Assessment & Plan Assessment & Plan (1) Metatarsalgia of both feet: Code(s): M77.41 - Metatarsalgia, right foot; M77.42 - Metatarsalgia, left foot Category: Medical Plan: * We instructed the patient to receive his bilateral feet x-rays * Pending diabetic shoes which should aid in his forefoot pain * Otherwise, may consider local injection to the 2/3 Metatarsal-phalangeal joint (2) Insulin dependent type 2 diabetes mellitus: Code(s): E11.9 - Type 2 diabetes mellitus without complications; Z79.4 - half-way (current) use of insulin Category: Medical Plan: * Pending diabetic shoes (3) Peripheral neuropathy: Code(s): G62.9 - Polyneuropathy, unspecified Category: Medical Qualifiers: Peripheral neuropathy type: polyneuropathy, other Qualified Code(s): G62.89 - Other specified polyneuropathies Plan: * Discussed differential diagnosis which includes peripheral neuropathy from diabetes, radiculopathy, and forefoot metatarsalgia. Coding Level of Care Code Est Pt Level 3 (20663) Diagnoses Metatarsalgia of both feet M77.41; M77.42 Insulin dependent type 2 diabetes mellitus E11.9; Z79.4 Other polyneuropathy G62.89 Peripheral neuropathy type: polyneuropathy, other Time Spent (min) 20
[2025-02-02 09:50] VITALS: BMI 32.1
--- OUTSIDE RECORDS SUMMARY | 2025-02-02 11:38 | XMS_ITS | Clinical Summary ---
Author Organization [facility] Address [address] [place] [id number] Phone Care Team Providers Care Unit Aide Name Role Phone Compa Duenas NP Primary Care Provider [phone] Allergies No known active allergies Medications atorvastatin [...] Type 2 diabetes mellitus wit hout complications ([facility] V24, [facility] V28) DX:Type 2 veelyn betes mellitus without complications (HCC) Bilateral shoulder pain DX:Bilat eral shoulder pain Vitamin D deficiency DX:Vitamin D deficiency Right-sided low back pain wi th right-sided sciatica DX:Right-sided low back pain with right-sided sciatica Stage 3a chronic kidney dise ase (CKD) ([facility] V24, [facility] V28) DX:Stage 3a chronic kidney disease (CKD) ([facility]) Social History Tobacco Use Types Packs/Day Years [...] MEDICARE ADVANTAGE MEDICAID - [place] Care Teams Unit Aide Relationship Specialty Start Date End Date Compa Duenas NP [address] [place] [address] PCP - General 03/21/22
== END 2025-02-02 10:13 | disposition home or self-care (01) ==
LOC: HO.HPODS 09:39
PROVIDERS: PCP Student in an Organized Health Care Education/Training Program; Visit Provider Student in an Organized Health Care Education/Training Program
DX: M77.41 Metatarsalgia, right foot (principal); M77.42 Metatarsalgia, left foot; E11.9 Type 2 diabetes mellitus without complications; Z79.4 Long term (current) use of insulin; G62.89 Other specified polyneuropathies
CPT/HCPCS: 99213

== ENCOUNTER → 2025-02-02 09:38 | Outpatient (BNVA) | payer MEDICARE, MEDICAID, SELFPAY | PROVIDERS: PCP Student in an Organized Health Care Education/Training Program; Visit Provider Student in an Organized Health Care Education/Training Program | DX: M25.561 Pain in right knee (principal); Z96.651 Presence of right artificial knee joint; G89.29 Other chronic pain; E11.9 Type 2 diabetes mellitus without complications; Z79.4 Long term (current) use of insulin; I10 Essential (primary) hypertension; M77.41 Metatarsalgia, right foot; M77.42 Metatarsalgia, left foot; G62.89 Other specified polyneuropathies | CPT/HCPCS: 99212 ==

== ENCOUNTER 2025-02-02 10:16 | Outpatient (AMB) | payer MEDICARE, MEDICAID, SELFPAY ==
--- NOTE | 2025-02-02 10:20 | A.OFFPC_ITS ---
Vital Signs 02/02/25 10:32 Height 5 ft 6 in Weight 203 lb 8 oz BMI 32.8 BP 111/88 Blood Pressure Location Rt brachial Position Sitting Pulse 99 Pulse Source Pulse Oximeter Temp 98.1 F Temp Source Oral Pulse Oximetry (%) 98 Oxygen Delivery Method Room Air Intake Visit Reasons: knee pain Accompanied by: Self / Same As Patient Allergies No Known Allergies Allergy (Verified 02/02/25 10:20) Medication List - Last Reconciled 02/02/25 by Primo Blanchard MD acetaminophen ER 650 mg PO Q12H apixaban (Eliquis) 10 mg (2 x 5 mg) PO BID 6 days atorvastatin 40 mg PO DAILY blood pressure monitor As directed blood sugar diagnostic (OneTouch Ultra Test strips) As directed blood-glucose meter (NetBase SolutionsTouch Ultra2 Meter) As directed [Diabetic shoes Please dispense diabetic shoes with 3 pairs of custom molded inserts.] gabapentin 300 mg PO TID PRN ibuprofen 800 mg PO Q8H insulin glargine (Lantus Solostar U-100 Insulin) 54 units (0.54 mL) subcut BE DTIME insulin lispro (Admelog SoloStar U-100 Insulin lispro) 1 sliding scale dose subcut USEASDIRECTD lancets (OneTouch Delica Plus Lancet) As directed lisinopril 20 mg PO DAILY pen needle, diabetic (Ultra-Fine Pen Needle) As directed semaglutide (Ozempic) 2 mg subcut FR Tobacco use date assessed: 02/02/25 Fall risk assessment: No Falls in past year Last assessed Fall Risk: 02/02/25 Dental Screening Dental Screen Date: 02/02/25 Did you have a dental visit in the last 12 months?: Yes HPI HPI Comments History of Present Illness Details History of Present Illness The patient is a 64 year old individual presenting with knee pain. Knee Pain: The patient reports knee pain that started last week, following a total knee replacement. The patient states the current pain differs from the pre-operative pain, which was constant. About 1.5 to 2 months ago, the patient experienced an incident where a plastic component of the prosthesis reportedly popped out, an observation shared by a physical therapist who noted it was out of place. The patient self-reduced the component by applying hot water and pushing it back into place, which was painful. The patient reported this incident to the surgeon. The pain was severe the day before yesterday, causing the patient to be unable to sleep, for which the patient took Percocet 5 mg and two Tylenol tablets. The patient has felt that something is wrong with the knee since the replacement surgery was first performed. History of blood clot: The patient has a history of a blood clot and is taking a blood thinner. The patient expressed frustration with a previous physician's management, stating that complaints of feeling a ball or bump in the leg were not addressed. Surgical History: - Total knee replacement Medications: - Apixaban - Tylenol (acetaminophen) for pain - Percocet 5 mg, taken two days ago for severe pain Diagnostic Results: - Labs: Renal function is good. Past Medical History - History of a blood clot, on anticoagul ation therapy. Health Maintenance - The patient's last A1c was on 11/20. [facility] Medical History Insulin dependent type 2 diabetes mellitus Hypertension GERD (gastroesophageal reflux disease) Obesity, Class I, BMI 30-34.9 Osteoarthritis of right knee Surgical History History of arthroplasty of right knee Family History Father Heart attack Mother Heart attack Social History Household Members: Spouse and Children Housing: Apartment Alcohol intake: current Alcohol intake frequency: does not drink Patient Tobacco Use Status: Never used Tobacco service: No Current occupational status: disabled Cognitive needs: Yes (cane and walker) Hearing needs: No Vision needs: Yes (reading glasses) Questionnaire PHQ-9 Over the last 2 weeks, how often have you been bothered by any of the following problems? 1. Little interest or pleasure in doing things: not at all 2. Feeling down, depressed, or hopeless: not at all 3. Trouble falling or staying asleep, or sleeping too much: nearly every day 4. Feeling tired or having little energy: nearly every day 5. Poor appetite or overeating: not at all 6. Feeling bad about yourself - or that you are a failure or have let yourself or your family down: not at all 7. Trouble concentrating on things, such as reading the newspaper or watching television: not at all 8. Moving or speaking so slowly that other people could have noticed. Or the opposite - being so fidgety or restless that you have been moving around a lot more than usual: not at all 9. Thoughts that you would be better off or of hurting yourself in some way: not at all Total score: 6 Depression Screening Interpretation: Negative Depression Screening Done: Yes Source: Developed by Drs. Anand Negron, Heidi Capps, Ugo Rankin and colleagues, with an educational rogelio from [employer]. Thrive Questionnaire Date Thrive assessed: 02/02/25 I am a: Patient What is your living situation today?: I have a steady place to live Within the past 12 months, did the food you bought not last and you didn't have the money to get more?: Sometimes True Within the past 12 months, did you worry whether your food would run out before you got money to buy more?: Sometimes True Do you have trouble paying for medicines?: No Do you have trouble getting transportation to medical appointments?: No Do you have trouble paying your heating and electricity bill?: No Do you have trouble taking care of your child, family member or friend?: No Are you currently unemployed and looking for a job?: No Are you interested in more education?: No Please select the resources that you would like help with: None Currently or been in a relationship where the following occur: I choose not to answer THRIVE Score: 2 AUDIT C Alcohol Use Questionnaire (AUDIT-C) 1. How often do you have a drink containing alcohol?: Never Total Score: 0 MOHAMUD-7 AMB Questionnaire MOHAMUD-7 Date MOHAMUD - 7 assessed: 02/02/25 Feeling nervous, anxious, or on edge: 0 = Not at all Not being able to stop or control worryin = Not at all Worrying too much about different things: 0 = Not at all Trouble relaxin = Not at all Being so restless that it is hard to sit still: 0 = Not at all Becoming easily annoyed or irritable: 0 = Not at all Feeling afraid as if something awful might happen: 0 = Not at all Total MOHAMUD-7 score (0-4 normal; 5-9 mild; 10-14 moderate; 15-21 severe): 0 Source: Developed by Drs. Anand Negron, Heidi Capps, Ugo Rankin and colleagues, with an educational rogelio from [employer]. Review of Systems Narrative Review of Systems - Musculoskeletal: Reports pain in the knee, around the surgical replacement area. - Constitutional: Reports inability to sleep two nights ago due to severe pain. - Neurological: Reports feeling dizzy. 10-point ROS reviewed and negative except as noted in HPI Physical exam (Primary Care) Vital Signs: Last Vital Signs Temp 98.1 F 02/02/25 10:32 Pulse 99 02/02/25 10:32 BP 111/88 02/02/25 10:32 Pulse Ox 98 02/02/25 10:32 Oxygen Delivery Method Room Air 02/02/25 10:32 BMI result Body Mass Index 32.8 Tobacco/Smoking Status: Tobacco use Status Tobacco use date assessed 02/02/25 02/02/25 10:21 Patient Tobacco Use Status Never used Tobacco 02/02/25 10:21 PHQ-9: PHQ-9 Score PHQ-9: Total score 6 02/02/25 12:47 Depression Screening Interpretation: Negative Thrive Assessment: Date of Thrive Assessment Date Thrive assessed 02/02/25 02/02/25 10:21 Currently or been in a relationship where the following occur: I choose not to answer Narrative Physical Exam General: Well-appearing, in no acute distress. Vital signs: Within normal limits. HEENT: Normocephalic, atraumatic. PERRLA, EOMI. Conjunctiva clear, sclera anicteric. Oropharynx clear, mucous membranes moist. TMs intact bilaterally. Neck: Supple, no lymphadenopathy, no thyromegaly, no JVD or carotid bruits. Cardiovascular: RRR, normal S1/S2, no murmurs, rubs, or gallops. Peripheral pu lses 2+ and symmetric. No edema. Respiratory: Lungs clear to auscultation bilaterally, no wheezes, rales, or rhonchi. Normal effort. Abdomen: Soft, non-tender, non-distended. Normoactive bowel sounds. No hepatosplenomegaly, no masses. MSK: Full range of motion, no joint swelling or deformity. Normal gait. Reports pain in the knee, possibly related to a previous replacement. Patient describes a sensation of something being out of place and has experienced a bump sensation. Pain managed with Tylenol and occasional use of ibuprofen. Skin: Warm, dry, intact. No rashes, lesions, or pallor. Neuro: Alert and oriented x3. Cranial nerves II-XII intact. Strength 5/5 throughout. Sensation intact. Reflexes 2+ symmetric. Normal coordination and gait. Psych: Appropriate mood and affect. Normal judgment and insight. Coding Level of Care Code Est Pt Level 3 (37783) Diagnoses Hypertension I10 Insulin dependent type 2 diabetes mellitus E11.9; Z79.4 Chronic knee pain after total replacement of right knee joint M25.561; G89.29; Z96.651 Assessment & Plan Assessment & Plan (1) Hypertension: Code(s): I10 - Essential (primary) hypertension Category: Medical (2) Insulin dependent type 2 diabetes mellitus: Code(s): E11.9 - Type 2 diabetes mellitus without complications; Z79.4 - jail (current) use of insulin Category: Medical (3) Chronic knee pain after total replacement of right knee joint: Code(s): M25.561 - Pain in right knee; G89.29 - Other chronic pain; Z96.651 - Presence of right artificial knee joint Category: Medical Plan Consent Patient was informed and verbally consented to the use of an ambient scribe for clinic note documentation during this visit. Plan 1. Knee Pain - The patient's reported history of a prosthetic component becoming displaced, which was also noted by a physical therapist, is concerning for a mechanical issue with the knee replacement. - A prescription for ibuprofen 800 mg was sent to manage the pain. - The patient was strongly advised to make an appointment to see the orthopedic surgeon for further evaluation of the knee, as something is wrong. 2. History Of Blood Clot - The patient will continue taking the prescribed blood thinner medication. Discussion Notes I discussed the patient's ongoing knee pain. I explained that the history of a component of the prosthesis popping out of place, along with the current symptoms and findings on exam, indicates that something is wrong with the knee replacement. I strongly recommended that the patient follow up with the orthopedic surgeon for re-evaluation. For pain control, I prescribed ibuprofen 800 mg and advised the patient to use this instead of Percocet if possible. The patient verbalized understanding and agreed to call the surgeon for an appointment. Patient Instructions - I have sent a prescription for Ibuprofen 800 mg to your pharmacy. - Take one tablet of Ibuprofen 800 mg when you have pain to avoid using Percocet. - You must call and make an appointment with your surgeon to have your knee checked again because something is wrong with it. Medical Decision Making The patient is a 64-year-old individual with worsening pain in a knee that has undergone total arthroplasty. The patient's history is highly concerning for a mechanical complication of the orthopedic prosthesis, specifically a displaced component, which was reportedly observed by a physical therapist and self- reduced by the patient. The presentation of severe, sleep-disrupting pain requiring opioid analgesia, combined with focal tenderness on examination, supports this concern. The primary working diagnosis is pain due to an internal orthopedic device, likely from mechanical failure or malposition. Given the patient's good renal function, an NSAID (Ibuprofen 800 mg) was prescribed for symptomatic relief. However, the definitive management requires urgent re-evaluation by the orthopedic surgeon, and the patient was strongly counseled to seek this follow- up. Total Time Statement 20 min Total time spent caring for the patient today includes pre-visit chart review, documentation, review of laboratory and diagnostic imaging results, medication reconciliation, medically necessary evaluation, counseling on diagnoses, care coordination, ordering appropriate tests and medications, review of tests performed by other providers, reporting test results to the patient, and communication with other healthcare providers. Orders: Orders Influenza [id number] Immunization Today Z23 - Encounter for immunization Medications: New ibuprofen 800 mg PO Q8H 30 tabs 0RF Fluarix (PF) (flu vac ts (6mos up)-PF) 0.5 mL IM ONCE 0.5 mL 0RF NS Z23 - Encounter for immunization Changed From gabapentin 300 mg PO TID 360 caps 0RF To gabapentin 300 mg PO TID PRN
[2025-02-02 10:32] VITALS: BP 111/88; PULSE 99; TEMP 36.7; O2SAT 98; BMI 32.8
== END 2025-02-02 10:58 | disposition home or self-care (01) ==
LOC: HO.HMCFMS 10:18
PROVIDERS: PCP Student in an Organized Health Care Education/Training Program; Visit Provider Student in an Organized Health Care Education/Training Program
DX: I10 Essential (primary) hypertension (principal); E11.9 Type 2 diabetes mellitus without complications; Z79.4 Long term (current) use of insulin; M25.561 Pain in right knee; G89.29 Other chronic pain; Z96.651 Presence of right artificial knee joint